=== PATIENT | male | born 1965 | race Caucasian/White ===

== ENCOUNTER 2018-11-28 09:22 | Day surgery (SDC) | payer MEDICARE, MEDICAID ==
[~2018-11-28 09:22] MED LIST: Sodium Chloride 0.9% 1,000 ML IV SCH
[2018-11-28] MEDS ORDERED: Midazolam 1 MG/ML 2 ML SDV ONE (09:40)
[2018-11-28] MEDS ORDERED: fentaNYL 100 MCG/2 ML SDV ONE (09:40)
[2018-11-28] MEDS ORDERED: Propofol 200 MG/20 ML SDV ONE ×2 (09:40→10:10)
--- NOTE | 2018-11-28 11:52 | OR ---
DATE OF PROCEDURE: 11/28/2018 PROCEDURES: 1. Esophagogastroduodenoscopy. 2. Colonoscopy. FINDINGS: 1. No evidence of old or new blood. 2. Transverse colon polyp, approximately 8 mm, completely removed using snare. 3. Engorged tick, left leg. COMPLICATIONS: None. CISCO CONSULTANT: None. PREOPERATIVE DIAGNOSIS: Nausea, vomiting, and screening colonoscopy. POSTOPERATIVE DIAGNOSIS: Nausea, vomiting, and screening colonoscopy. RISKS: Risks, benefits, alternatives, and limitations including, but not limited to infection, bleeding, and perforation were explained to the patient who wished to proceed. PROCEDURE IN DETAIL: The patient was placed in left lateral decubitus position. The EGD scope was introduced and advanced atraumatically to second part of the duodenum. No evidence of duodenitis. No ulceration. In the stomach itself, there were no abnormalities. No gastritis. No ulceration. The GE junction appeared normal. No hiatal hernia. The esophagus was inspected without abnormality. Digital rectal exam performed next showed mild external hemorrhoids. Scope was introduced and advanced atraumatically to the ileocecal valve. The scope was brought back to the ascending, transverse, descending colon, and retroflexed. No diverticulosis. No old or new blood. In the transverse colon, the aforementioned polyp was identified and completely removed using a snare. No abnormal bleeding was noted after removal. No abnormalities on retroflexion. The patient tolerated the procedure well. Balta Ortiz MD /[id number]
== END 2018-11-28 11:40 | disposition home or self-care (01) ==
LOC: JP.SDS 09:22
PROVIDERS: ATTEND Surgery
DX: Z12.11 Encounter for screening for malignant neoplasm of colon (principal); D12.3 Benign neoplasm of transverse colon; K64.4 Residual hemorrhoidal skin tags; R11.2 Nausea with vomiting, unspecified; S80.862A Insect bite (nonvenomous), left lower leg, initial encounter; E87.6 Hypokalemia; I10 Essential (primary) hypertension; F32.9 Major depressive disorder, single episode, unspecified; F41.9 Anxiety disorder, unspecified; F17.210 Nicotine dependence, cigarettes, uncomplicated; M54.9 Dorsalgia, unspecified; Z88.0 Allergy status to penicillin; Z88.8 Allergy status to other drugs, medicaments and biological substances; Z88.1 Allergy status to other antibiotic agents; Z91.030 Bee allergy status; Z79.82 Long term (current) use of aspirin; Z79.01 Long term (current) use of anticoagulants
CPT/HCPCS: 43235; 45385; J2250; J2704; J3010; J7030; 88305

== ENCOUNTER 2020-01-17 11:38 | Emergency (ER) | payer MEDICARE, MEDICAID ==
--- NOTE | 2020-01-17 12:13 | EDM.PDOC ---
ED HPI GENERAL MEDICAL PROBLEM - General Chief Complaint: ENT Problem Stated Complaint: LOWER LIP/CHIN SWELLING WITH PAIN Time Seen by Provider: 01/17/20 12:00 Source of Information: Reports: Patient, Old Records History Limitations: Reports: No Limitations - History of Present Illness INITIAL COMMENTS - FREE TEXT/NARRATIVE: 54 yo male here with pain and swelling of his anterior lower jaw and lower lip. No fever. Has a pHx of bad teeth. Sx's began 3 days ago and is getting worse. Is on oxycodone regularly currently. Has a PCN allergy. Onset: Gradual Onset Date: 01/14/20 Duration: Day(s): (3), Getting Worse Location: Reports: Face (anterior mandible) Quality: Reports: Ache Severity: Moderate Improves with: Reports: Medication Worsens with: Reports: Other (time) Context: Reports: Other (See HPI) Associated Symptoms: Denies: Fever/Chills Treatments INFRASTRUCTURE ARCHITECT: Reports: Other (see below) (none) - Related Data Allergies Allergy/AdvReac Type Severity Reaction Status Date / Time bee venom protein (honey bee) Allergy Severe Anaphylactic Verified 07/10/19 09:1 9 Shock bupropion [From Wellbutrin] Allergy Other Verified 07/10/19 09:19 cefadroxil [From Duricef] Allergy Other Verified 07/10/19 09:19 penicillin G Allergy Other Verified 07/10/19 09:19 Home Meds: Home Meds Apixaban [Eliquis] 5 mg PO BID 11/11/18 [History] Aspirin [Adult Low Dose Aspirin EC] 81 mg PO DAILY 11/11/18 [History] Cetirizine HCl [Zyrtec] 10 mg PO DAILY 11/11/18 [History] Nitroglycerin [Nitrostat] 0.4 mg SL ASDIRECTED 11/11/18 [History] PARoxetine [Paxil] 40 mg PO DAILY 11/11/18 [History] Potassium Chloride 20 meq PO DAILY 11/11/18 [History] amLODIPine Besylate [Norvasc] 10 mg PO DAILY 11/11/18 [History] atorvaSTATin [Lipitor] 80 mg PO BEDTIME 11/11/18 [History] ARIPiprazole [Abilify] 1 tab PO BEDTIME 07/08/19 [History] Finasteride 5 mg PO DAILY 07/08/19 [History] oxyCODONE HCl/Acetaminophen [Endocet 5-325 Tablet] 2 tab PO Q8H PRN 07/08/19 [History] Clindamycin HCl 300 mg PO Q8H #30 capsule 01/17/20 [Rx] Past Medical History HEENT History: Reports: None Cardiovascular History: Reports: High Cholesterol, Hypertension, Stents Gastrointestinal History: Reports: Other (See Below) Other Gastrointestinal History: ingunial hernia years ago Musculoskeletal History: Reports: Arthritis, Back Pain, Chronic Oncologic (Cancer) History: Reports: Other (See Below) Other Oncologic History: skin cancer year ago right arm - Infectious Disease History Infectious Disease History: Reports: Chicken Pox - Past Surgical History GI Surgical History: Reports: Hernia, Inguinal Musculoskeletal Surgical History: Reports: Shoulder Surgery Other Musculoskeletal Surgeries/Procedures:: left and right rotar cuff (right side not fixed, acquired infection on right side) Oncologic Surgical History: Reports: None Social & Family History - Family History Family Medical History: Noncontributory - Caffeine Use Caffeine Use: Reports: Energy Drinks, Soda ED ROS ENT - Review of Systems Review Of Systems: See Below Constitutional: Reports: No Symptoms HEENT: Reports: Dental Pain, Other (lower lip swelling) Respiratory: Reports: No Symptoms Cardiovascular: Reports: No Symptoms GI/Abdominal: Reports: No Symptoms Skin: Reports: No Symptoms Neurological: Reports: No Symptoms ED EXAM, ENT - Physical Exam Exam: See Below Exam Limited By: No Limitations General Appearance: Alert, WD/WN, No Apparent Distress Mouth/Throat: Normal Oropharynx, Dental Abcess, Dental Pain, Dental Tenderness (lower incisors all severely decayed and tender), Lip Swelling (lower lip only). No: Normal Gums, Normal Lips, Normal Teeth, Bleeding, Hoarse Voice, Muffled Voice, Tongue Swelling Head: Atraumatic, Normocephalic Neck: Normal Inspection. No: Lymphadenopathy (R), Lymphadenopathy (L) Respiratory/Chest: No Respiratory Distress, Lungs Clear, Normal Breath Sounds, No Accessory Muscle Use Cardiovascular: Regular Rate, Rhythm, No Edema Neurological: Alert, Oriented, CN II-XII Intact, Normal Cognition, No Motor/Sensory Deficits Psychiatric: Normal Affect, Normal Mood Skin: Warm, Dry, Intact, Normal Color, No Rash Course - Vital Signs Last Recorded V/S: Last Vital Signs Temp 36.8 C 01/17/20 11:47 Pulse 84 01/17/20 11:47 Resp 12 01/17/20 11:47 BP 118/80 01/17/20 12:03 Pulse Ox 95 01/17/20 11:47 Departure - Departure Time of Disposition: 12:13 Disposition: Home, Self-Care 01 Condition: Fair Clinical Impression: Dental infection - Discharge Information *PRESCRIPTION DRUG MONITORING PROGRAM REVIEWED*: No *COPY OF PRESCRIPTION DRUG MONITORING REPORT IN PATIENT NOA: No Prescriptions: Clindamycin HCl 300 mg PO Q8H #30 capsule Referrals: PCP,None [Primary Care Provider] - Additional Instructions: Take the clindamycin as directed until gone. F/U with your dentist and/or family doctor later this week. May add Anbesol for additional pain relief. Continue your oxycodone. Return here for high fever. Sepsis Event Note (ED) - Focused Exam Vital Signs: Vital Signs Temp Pulse Resp BP Pulse Ox 01/17/20 12:03 118/80 01/17/20 11:47 36.8 C 84 12 95
== END 2020-01-17 12:23 | disposition home or self-care (01) ==
LOC: JP.ED 11:38
DX: K04.7 Periapical abscess without sinus (principal); K02.9 Dental caries, unspecified; I10 Essential (primary) hypertension; E78.00 Pure hypercholesterolemia, unspecified; Z91.030 Bee allergy status; Z88.8 Allergy status to other drugs, medicaments and biological substances; Z88.0 Allergy status to penicillin; Z79.82 Long term (current) use of aspirin; Z79.899 Other long term (current) drug therapy
CPT/HCPCS: 99282

== ENCOUNTER 2020-09-09 00:07 | Inpatient (IN) | payer MEDICARE, MEDICAID ==
[2020-09-09] MEDS ORDERED: Sodium Chloride 0.9% 1,000 ML IV ONE (00:39)
[2020-09-09] MEDS ORDERED: Ondansetron 4 MG/2 ML SDV IVPUSH ONE (00:39)
[2020-09-09] MEDS ORDERED: Sodium Chloride 0.9% 10 ML Syringe FLUSH PRN (00:39)
[2020-09-09] MEDS ORDERED: HYDROmorphone 0.5 MG/0.5 ML Syringe IVPUSH ONE (00:52)
--- NOTE | 2020-09-09 00:52 | EDM.PDOC ---
ED HPI GENERAL MEDICAL PROBLEM - General Chief Complaint: Gastrointestinal Problem Stated Complaint: BODY ACHES/SOB Time Seen by Provider: 09/09/20 00:38 Source of Information: Reports: Patient History Limitations: Reports: No Limitations - History of Present Illness INITIAL COMMENTS - FREE TEXT/NARRATIVE: Reji is a 54-year-old male presenting to the ED for evaluation of inability to swallow, body aches, marked increased in thirst, chest pain, and feeling unwell. Patient was in his usual state of health until last week when he DC'd his Endocet. It is unclear why he discontinued this, however, he reports that since Saturday has not been able to swallow even liquids. He comes in very anxious, diaphoretic, drenching sweats, tachypneic and tachycardic. He appears very unc omfortable and apprehensive. He is complaining of severe thirst. According to the patient's , the patient discontinued the Endocet because it was felt that that was causing constipation. The patient was seen in the emergency room at [facility] last week for similar although less severe event. He has been having stomach issues for the last 2 to 3 weeks with diminished appetite and increasing abdominal pain. His primary provider stated that the next visit they would schedule him for a CT of the abdomen and pelvis. Patient does have a history for coronary artery disease and is status post stent placement with the most recent being 3 years ago. Patient normally doctors at [facility] with Paula tSock. body aches Pain Score (Numeric/FACES): 6 - Related Data Allergies Allergy/AdvReac Type Severity Reaction Status Date / Time bee venom protein (honey bee) Allergy Severe Anaphylactic Verified 09/09/20 00:21 Shock bupropion [From Wellbutrin] Allergy Other Verified 09/09/20 00:21 cefadroxil [From Duricef] Allergy Other Verified 09/09/20 00:21 penicillin G Allergy Other Verified 09/09/20 00:21 Home Meds: Home Meds Apixaban [Eliquis] 5 mg PO BID 11/11/18 [History] Aspirin [Adult Low Dose Aspirin EC] 81 mg PO DAILY 11/11/18 [History] Cetirizine HCl [Zyrtec] 10 mg PO DAILY 11/11/18 [History] Nitroglycerin [Nitrostat] 0.4 mg SL ASDIRECTED 11/11/18 [History] PARoxetine [Paxil] 40 mg PO DAILY 11/11/18 [History] Potassium Chloride 20 meq PO DAILY 11/11/18 [History] amLODIPine Besylate [Norvasc] 10 mg PO DAILY 11/11/18 [History] atorvaSTATin [Lipitor] 80 mg PO BEDTIME 11/11/18 [History] Finasteride 5 mg PO DAILY 07/08/19 [History] oxyCODONE HCl/Acetaminophen [Endocet 5-325 Tablet] 2 tab PO Q8H PRN 07/08/19 [History] Past Medical History HEENT History: Reports: Other (See Below) Other HEENT History: dentures Cardiovascular History: Reports: High Cholesterol, [place], Stents Gastrointestinal History: Reports: Other (See Below) Other Gastrointestinal History: ingunial hernia years ago Musculoskeletal History: Reports: Arthritis, Back Pain, Chronic Hematologic History: Reports: Anticoagulation Therapy Oncologic (Cancer) History: Reports: Other (See Below) Other Oncologic History: skin cancer year ago right arm - Infectious Disease History Infectious Disease History: Reports: Chicken Pox - Past Surgical History HEENT Surgical History: Reports: Tonsillectomy GI Surgical History: Reports: Hernia, Inguinal Musculoskeletal Surgical History: Reports: Shoulder Surgery Other Musculoskeletal Surgeries/Procedures:: left and right rotar cuff (right side not fixed, acquired infection on right side) Oncologic Surgical History: Reports: None Social & Family History - Family History Family Medical History: No Pertinent Family History - Tobacco Use Tobacco Use Status *Q: Current Every Day Tobacco User Years of Tobacco use: 40 Packs/Tins Daily: 0.5 - Caffeine Use Caffeine Use: Reports: Energy Drinks, Soda - Recreational Drug Use Recreational Drug Use: No ED ROS GENERAL - Review of Systems Review Of Systems: See Below Constitutional: Reports: Malaise, Fatigue, Diaphoresis, Other ( states that the patient has been sleeping much more this last 2 weeks.) HEENT: Reports: Other (Patient cannot swallow) Respiratory: Reports: No Symptoms Cardiovascular: Reports: Palpitations (Tachycardia) Endocrine: Reports: Other (Patient very thirsty) GI/Abdominal: Reports: Abdominal Pain (Generalized abdominal pain), Constipation (To be secondary to opiate use), Decreased Appetite, Difficulty Swallowing, Nausea, Vomiting : Reports: No Symptoms Musculoskeletal: Reports: Muscle Pain (Generalized body aches) Skin: Reports: No Symptoms Neurological: Reports: No Symptoms Psychiatric: Reports: Anxiety Hematologic/Lymphatic: Reports: No Symptoms Immunologic: Reports: No Symptoms ED EXAM, GENERAL - Physical Exam Exam: See Below Exam Limited By: No Limitations General Appearance: Anxious, Severe Distress Eye Exam: Bilateral Eye: EOMI, PERRL Head: Atraumatic, Normocephalic Neck: Normal Inspection, Supple, Non-Tender, Full Range of Motion Respiratory/Chest: No Respiratory Distress, Lungs Clear, Normal Breath Sounds Cardiovascular: Normal Peripheral Pulses, Regular Rate, Rhythm, Tachycardia GI/Abdominal: Distended (Mildly distended), Tender (Diffuse tenderness), Abnormal Bowel Sounds (Minutes bowel sounds). No: Guarding, Rebound Back Exam: Normal Inspection Extremities: Normal Inspection, Normal Range of Motion Neurological: Alert, Oriented, Normal Cognition, No Motor/Sensory Deficits Psychiatric: Anxious Skin Exam: Warm, Diaphoretic (Drenching diaphoresis), Pallor Lymphatic: No Adenopathy #1 Interpretation EKG Date: 09/09/20 Time: 00:48 Rhythm: NSR Rate (Beats/Min): 89 Kevil: Normal P-Wave: Enlarged (Left atrial enlargement) QRS: Normal ST-T: Other (Chaotic baseline makes interpretation impossible. Unable to get a solid baseline due to the patient's respiratory distress.) QT: Prolonged (Corrected QT interval of 558 ms) Comparison: NA - No Prior EKG Course - Vital Signs Last Recorded V/S: Last Vital Signs Temp 36.1 C 09/09/20 02:19 Pulse 89 09/09/20 02:19 Resp 13 09/09/20 02:19 BP 106/45 L 09/09/20 02:19 Pulse Ox 99 09/09/20 02:19 - Orders/Labs/Meds Orders: Active Orders 24 hr Category Date Time Status EKG Documentation Completion [RC] ASDIRECTED Care 09/09/20 00:40 Active COVID-19/FLU A+B/RSV [MOLEC] Stat Lab 09/09/20 02:04 Ordered Pantoprazole [ProTONIX IV] 80 mg Med 09/09/20 02:30 Active Sodium Chloride 0.9% [Normal Saline] 100 ml IV .BOLUS Potassium Chloride [KCL in Water 20 MEQ/100 ML] 20 meq Med 09/09/20 01:34 Active Premix Bag 1 bag IV ONETIME Potassium Chloride [KCL in Water 20 MEQ/100 ML] 20 meq Med 09/09/20 02:16 Active Premix Bag 1 bag IV ONETIME Sodium Chloride 0.9% [Normal Saline] 1,000 ml Med 09/09/20 02:00 Active IV ASDIRECTED Sodium Chloride 0.9% [Saline Flush] Med 09/09/20 00:39 Active 10 ml FLUSH ASDIRECTED PRN Saline Lock Insert [OM.PC] Routine Oth 09/09/20 00:39 Ordered EKG 12 Lead [EK] Routine Ther 09/09/20 00:39 Ordered Medication Orders Potassium Chloride 20 meq/ (Premix) 100 mls @ 50 mls/hr IV ONETIME ONE Stop: 09/09/20 03:33 Last Admin: 09/09/20 02:04 Dose: 50 mls/hr Documented by: ALESIA Sodium Chloride (Normal Saline) 1,000 mls @ 150 mls/hr IV ASDIRECTED KAHLIL Last Admin: 09/09/20 02:08 Dose: 150 mls/hr Documented by: ALESIA Pantoprazole Sodium 80 mg/ (Sodium Chloride) 100 mls @ 200 mls/hr IV .BOLUS KAHLIL Potassium Chloride 20 meq/ (Premix) 100 mls @ 50 mls/hr IV ONETIME ONE Stop: 09/09/20 04:15 Sodium Chloride (Sodium Chloride 0.9% 10 Ml Syringe) 10 ml FLUSH ASDIRECTED PRN PRN Reason: Keep Vein Open Last Admin: 09/09/20 00:58 Dose: 10 ml Documented by: ALESIA Labs: Laboratory Tests 09/09/20 09/09/20 09/09/20 Range/Units 00:45 00:45 00:45 WBC 9.0 (4.5-11.0) K/uL RBC 4.38 (4.30-5.90) M/uL Hgb 13.2 (12.0-15.0) g/dL Hct 39.3 L (40.0-54.0) % MCV 90 (80-98) fL MCH 30 (27-31) pg MCHC 34 (32-36) % Plt Count 265 (150-400) K/uL Neut % (Auto) 47 (36-66) % Lymph % (Auto) 38 (24-44) % [place] % (Auto) 11 H (2-6) % Eos % (Auto) 3 (2-4) % Baso % (Auto) 1 (0-1) % Sodium 139 L (140-148) mmol/L Potassium 2.9 L* (3.6-5.2) mmol/L Chloride 102 (100-108) mmol/L Carbon Dioxide 20 L (21-32) mmol/L Anion Gap 19.9 H (5.0-14.0) mmol/L BUN 14 D (7-18) mg/dL Creatinine 1.3 (0.8-1.3) mg/dL Est Cr Clr Drug Dosing 68.38 mL/min Estimated GFR (MDRD) 57 L (>60) Glucose 91 (74-106) mg/dL Lactic Acid 3.5 H (0.4-2.0) mmol/L Calcium 9.2 (8.5-10.1) mg/dL Total Bilirubin 0.7 (0.2-1.0) mg/dL AST 36 (15-37) U/L ALT 44 (12-78) U/L Alkaline Phosphatase 150 H (46-116) U/L Troponin I < 0.017 (0.000-0.056) ng/mL Total Protein 6.9 (6.4-8.2) g/dL Albumin 3.4 (3.4-5.0) g/dL Globulin 3.5 (2.3-3.5) g/dL Albumin/Globulin Ratio 1.0 L (1.2-2.2) Lipase 75 (73-393) U/L Meds: Medications Generic Name Dose Route Start Last Admin Trade Name Freq PRN Reason Stop Dose Admin Potassium Chloride 20 meq/ 100 mls @ 50 mls/hr 09/09/20 01:34 09/09/20 02:04 Premix IV 09/09/20 03:33 50 mls/hr ONETIME ONE Administration Sodium Chloride 1,000 mls @ 150 mls/hr 09/09/20 02:00 09/09/20 02:08 Normal Saline IV 150 mls/hr ASDIRECTED KAHLIL Administration Pantoprazole Sodium 80 mg/ 100 mls @ 200 mls/hr 09/09/20 02:30 Sodium Chloride IV .BOLUS KAHLIL Potassium Chloride 20 meq/ 100 mls @ 50 mls/hr 09/09/20 02:16 Premix IV 09/09/20 04:15 ONETIME ONE Sodium Chloride 10 ml 09/09/20 00:39 09/09/20 00:58 Sodium Chloride 0.9% 10 Ml Syringe FLUSH 10 ml ASDIRECTED PRN Administration Keep Vein Open Discontinued Medications Generic Name Dose Route Start Last Admin Trade Name Freq PRN Reason Stop Dose Admin Hydromorphone HCl 0.5 mg 09/09/20 00:52 09/09/20 00:57 Hydromorphone 0.5 Mg/0.5 Ml Syringe IVPUSH 09/09/20 00:53 0.5 mg ONETIME ONE Administration Sodium Chloride 1,000 mls @ 999 mls/hr 09/09/20 00:39 09/09/20 00:49 Normal Saline IV 09/09/20 01:39 999 mls/hr .BOLUS ONE Administration Sodium Chloride 100 mls @ 3 mls/sec 09/09/20 01:07 09/09/20 01:15 Normal Saline IV 09/09/20 01:08 3 mls/sec ASDIRECTED STA Administration Iopamidol 100 ml 09/09/20 01:07 09/09/20 01:15 Iopamidol 612 Mg/Ml 100 Ml Bottle IV 09/09/20 01:08 100 ml . DIRECTED STA Administration Lidocaine HCl 2 ml 09/09/20 01:36 09/09/20 02:04 Lidocaine 1% 5 Ml Sdv INJECT 09/09/20 01:37 2 ml ONETIME ONE Administration Ondansetron HCl 4 mg 09/09/20 00:39 09/09/20 00:55 Ondansetron 4 Mg/2 Ml Sdv IVPUSH 09/09/20 00:40 4 mg ONETIME ONE Administration - Radiology Interpretation Free Text/Narrative:: CT of the chest, abdomen and pelvis with contrast was performed demonstrating in the chest is normal thyroid gland, thoracic aorta is normal in caliber with mild atherosclerosis, coronary atherosclerosis, no enlarged mediastinal lymph nodes, along the course of the esophagus there is no discrete abnormalities identified. Lungs and pleura: There is no pleural effusion or pneumothorax. Mild sommers lobar emphysema. Indeterminate 2 mm pulmonary nodule in the right middle lobe although stable compared to 2019 exam. Linear scarring within the left lower lobe. Stable 3 mm pulmonary nodule in the left lower lobe. Chest wall and axilla: Subcentimeter axillary lymph nodes. Bones: Prominent hemangioma T5. Abdomen and pelvis: Liver - diffusely decreased density of the liver with focal fat adjacent to the falciform ligament. Gallbladder and bile ductsunremarkable. Pancreasunremarkable. Spleenunremarkable. Adrenal glandsunremarkable. Kidneysunremarkable. GI tractthe stomach is decompressed and grossly unremarkable. No dilated loops of small or large intestine. Appendix is unremarkable. Vascular structuresunremarkable. Pelvic organsunremarkable. Bonesmild degenerative disc disease in the lumbar spine. Dictated by Gerardo Dia MD at September 09, 2020 2:42 AM - Re-Assessments/Exams Free Text/Narrative Re-Assessment/Exam: 09/09/20 01:16 lab called to alert me and that the patient has a critical value with a potassium of 2.9. 09/09/20 03:02 potassium has been repleted with potassium chloride riders. With patient was also given Protonix 80 mg IV. His labs otherwise are relatively normal. CT of the chest, abdomen and pelvis with contrast was performed demonstrating in the chest is normal thyroid gland, thoracic aorta is normal in caliber with mild atherosclerosis, coronary atherosclerosis, no enlarged mediastinal lymph nodes, along the course of the esophagus there is no discrete abnormalities identified. Lungs and pleura: There is no pleural effusion or pneumothorax. Mild sommers lobar emphysema. Indeterminate 2 mm pulmonary nodule in the right middle lobe although stable compared to 2019 exam. Linear scarring within the left lower lobe. Stable 3 mm pulmonary nodule in the left lower lobe. Chest wall and axilla: Subcentimeter axillary lymph nodes. Bones: Prominent hemangioma T5. Abdomen and pelvis: Liver - diffusely decreased density of the liver with focal fat adjacent to the falciform ligament. Gallbladder and bile ductsunremarkable. Pancreasunremarkable. Spleenunremarkable. Adrenal glandsunremarkable. Kidneysunremarkable. GI tractthe stomach is decompressed and grossly unremarkable. No dilated loops of small or large intestine. Appendix is unremarkable. Vascular structuresunremarkable. Pelvic organsunremarkable. Bonesmild degenerative disc disease in the lumbar spine. Dictated by Gerardo Dia MD at September 09, 2020 2:42 AM Discussed the case with Dr. Ortiz who is planning on taking the patient to the OR for an endoscopy this morning. He would like us to replete the potassium before the endoscopy. I discussed the case with Laura Pratt CNP who will arrange for admission of the patient. Departure - Departure Time of Disposition: 03:08 Disposition: Admitted As Inpatient 65 Clinical Impression: Hypokalemia, Epigastric abdominal pain, Abdominal bloating, Dehydration Difficulty in swallowing Qualifiers: Dysphagia type: unspecified Qualified Code(s): R13.10 - Dysphagia, unspecified Vomiting Qualifiers: Vomiting type: unspecified Vomiting Intractability: non-intractable Nausea presence: with nausea Qualified Code(s): R11.2 - Nausea with vomiting, unspecified - Discharge Information Referrals: PCP,None [Primary Care Provider] - Forms: ED Department Discharge Sepsis Event Note (ED) - Evaluation Sepsis Screening Result: No Definite Risk - Focused Exam Vital Signs: Vital Signs Temp Pulse Resp BP Pulse Ox 09/09/20 02:19 36.1 C 89 13 106/45 L 99 09/09/20 01:33 35.5 C L 85 13 99/48 L 99 09/09/20 01:05 35.5 C L 88 16 104/47 L 98 09/09/20 00:28 36.6 C 90 20 121/61 97 09/09/20 00:26 36.6 C 90 20 121/61 97 - Problem List & Annotations (1) Abdominal bloating SNOMED Code(s): 963336000 Code(s): R14.0 - ABDOMINAL DISTENSION (GASEOUS) Status: Acute Priority: High Current Visit: Yes (2) Dehydration SNOMED Code(s): 45692453 Code(s): E86.0 - DEHYDRATION Status: Acute Priority: High Current Visit: Yes (3) Difficulty in swallowing SNOMED Code(s): 89214010, 837693646 Code(s): R13.10 - DYSPHAGIA, UNSPECIFIED Status: Acute Priority: High Current Visit: Yes Qualifiers: Dysphagia type: unspecified Qualified Code(s): R13.10 - Dysphagia, unspecified (4) Epigastric abdominal pain SNOMED Code(s): 91108173 Code(s): R10.13 - EPIGASTRIC PAIN Status: Acute Priority: High Current Visit: Yes (5) Hypokalemia SNOMED Code(s): 56239481 Code(s): E87.6 - HYPOKALEMIA Status: Acute Priority: High Current Visit: Yes (6) Vomiting SNOMED Code(s): 920474068 Code(s): R11.10 - VOMITING, UNSPECIFIED Status: Acute Priority: High Current Visit: Yes Qualifiers: Vomiting type: unspecified Vomiting Intractability: non-intractable Nausea presence: with nausea Qualified Code(s): R11.2 - Nausea with vomiting, unspecified - Problem List Review Problem List Initiated/Reviewed/Updated: Yes - My Orders Last 24 Hours: My Active Orders 09/09/20 00:39 Sodium Chloride 0.9% [Saline Flush] 10 ml FLUSH ASDIRECTED PRN Saline Lock Insert [OM.PC] Routine EKG 12 Lead [EK] Routine 09/09/20 00:40 EKG Documentation Completion [RC] ASDIRECTED 09/09/20 01:34 Potassium Chloride [KCL in Water 20 MEQ/100 ML] 20 meq Premix Bag 1 bag IV ONETIME 09/09/20 02:00 Sodium Chloride 0.9% [Normal Saline] 1,000 ml IV ASDIRECTED 09/09/20 02:04 COVID-19/FLU A+B/RSV [MOLEC] Stat 09/09/20 02:16 Potassium Chloride [KCL in Water 20 MEQ/100 ML] 20 meq Premix Bag 1 bag IV ONETIME 09/09/20 02:30 Pantoprazole [ProTONIX IV] 80 mg Sodium Chloride 0.9% [Normal Saline] 100 ml IV .BOLUS - Assessment/Plan Last 24 Hours: My Active Orders 09/09/20 00:39 Sodium Chloride 0.9% [Saline Flush] 10 ml FLUSH ASDIRECTED PRN Saline Lock Insert [OM.PC] Routine EKG 12 Lead [EK] Routine 09/09/20 00:40 EKG Documentation Completion [RC] ASDIRECTED 09/09/20 01:34 Potassium Chloride [KCL in Water 20 MEQ/100 ML] 20 meq Premix Bag 1 bag IV ONETIME 09/09/20 02:00 Sodium Chloride 0.9% [Normal Saline] 1,000 ml IV ASDIRECTED 09/09/20 02:04 COVID-19/FLU A+B/RSV [MOLEC] Stat 09/09/20 02:16 Potassium Chloride [KCL in Water 20 MEQ/100 ML] 20 meq Premix Bag 1 bag IV ONETIME 09/09/20 02:30 Pantoprazole [ProTONIX IV] 80 mg Sodium Chloride 0.9% [Normal Saline] 100 ml IV .BOLUS
[2020-09-09] MEDS ORDERED: Iopamidol 612 MG/ML 100 ML Bottle IV STA (01:07)
[2020-09-09] MEDS ORDERED: Sodium Chloride 0.9% 100 ML IV STA (01:07)
[2020-09-09] MEDS ORDERED: Potassium Chloride 20 MEQ in Premix Bag 1 BAG IV ONE ×2 (01:34→02:16)
[2020-09-09] MEDS: Sodium Chloride 0.9% 1,000 ML IV SCH ×4 (02:08→19:41)
[2020-09-09] MEDS ORDERED: Pantoprazole 80 MG in Sodium Chloride 0.9% 100 ML IV SCH (02:30)
--- NOTE | 2020-09-09 02:53 | CRLCT ---
INDICATION: Unable to swallow for 4 days. TECHNIQUE: CT chest, abdomen and pelvis acquired with 100 cc Isovue-300 intravenous contrast. COMPARISON: Chest CT 01/08/2019 and abdomen and pelvis CT 07/23/2018 FINDINGS: CHEST: Mediastinum and valorie: Thyroid gland is unremarkable. Thoracic aorta is normal in caliber with mild atherosclerotic calcification. Coronary atherosclerosis. No enlarged mediastinal lymph nodes. Along the course of the esophagus no discrete abnormalities are identified. Lungs and pleura: No pleural effusion or pneumothorax. Mild panlobular emphysema. Indeterminate 2 millimeter pulmonary nodule right middle lobe although stable compared to the 2019 exam. Linear scarring within the left lower lobe. Stable 3 millimeter pulmonary nodule left lower lobe. Chest wall and axilla: Subcentimeter axillary lymph nodes. Bones: Prominent hemangioma T5. ABDOMEN AND PELVIS: Liver: Diffusely decreased density of the liver with focal fat adjacent to the falciform ligament. Gallbladder and bile ducts: Unremarkable. Pancreas: Unremarkable. Spleen: Unremarkable. Adrenal glands: Unremarkable. Kidneys: Unremarkable. GI tract: The stomach is decompressed and grossly unremarkable. No dilated loops of large or small intestine. Appendix unremarkable. Vascular structures: Unremarkable. Pelvic Organs: Unremarkable. Bones: Mild degenerative disc disease lumbar spine. IMPRESSION: 1. No findings to explain the patient`s difficulty swallowing. If symptoms persist, follow-up modified barium swallow with speech therapy may be helpful. 2. Panlobular emphysema with stable pulmonary nodules compared to the 2019 examination. 3. Hepatic steatosis. Please note that all CT scans at this facility use dose modulation, iterative reconstruction, and/or weight-based dosing when appropriate to reduce radiation dose to as low as reasonably achievable. Dictated by Gerardo Dia MD @ Sep 09 2020 2:42AM Signed by Dr. Gerardo Dia @ Sep 09 2020 2:51AM
[2020-09-09 03:09] LABS: CORONAVIRUS COVID-19 NAA NEGATIVE (NEGATIVE)
--- NOTE | 2020-09-09 04:00 | PCM.HP.2 ---
H&P History of Present Illness - General Date of Service: 09/09/20 Admit Problem/Dx: Admission Diagnosis/Problem Admission Diagnosis/Problem Dysphasia Source of Information: Patient History Limitations: Reports: No Limitations - History of Present Illness Initial Comments - Free Text/Narative: chief complaint: unable to swallow x 4 days History Limitations: Reports: No Limitations - History of Present Illness INITIAL COMMENTS - FREE TEXT/NARRATIVE: Reji is a 54-year-old male presenting to the ED for evaluation of inability to swallow, body aches, marked increased in thirst, chest pain, and feeling unwell. Patient was in his usual state of health until last week when he DC'd his Endocet. It is unclear why he discontinued this, however, he reports that since Saturday has not been able to swallow even liquids. He comes in very anxious, diaphoretic, drenching sweats, tachypneic and tachycardic. He appears very uncomfortable and apprehensive. He is complaining of severe thirst. According to the patient's , the patient discontinued the Endocet because it was felt that that was causing constipation. The patient was seen in the emergency room at [facility] last week for similar although less severe event. He has been having stomach issues for the last 2 to 3 weeks with diminished appetite and increasing abdominal pain. His primary provider stated that the next visit they would schedule him for a CT of the abdomen and pelvis. Patient does have a history for coronary artery disease and is status post stent placement with the most recent being 3 years ago. Patient normally doctors at [facility] with Paula Stock MD. Onset of Symptoms: Reports: Gradual Symptom Onset Date: 09/05/20 Duration of Symptoms: Reports: Getting Worse Location: Reports: Generalized (unable to swallow) Quality: Reports: Ache, Same as Previous Episode, Sharp, Other (generalized muscle cramps, abdominal pain, weakness) Severity: Severe Improves with: Reports: None Worsens with: Reports: Rest Context: Reports: Other (hx of similar symptoms 2 years ago) Associated Symptoms: Reports: Loss of Appetite, Nausea/Vomiting, Weakness body aches Pain Score (Numeric/FACES): 6 - Related Data Allergies/Adverse Reactions: Allergies Allergy/AdvReac Type Severity Reaction Status Date / Time bee venom protein (honey bee) Allergy Severe Anaphylactic Verified 09/09/20 00:21 Shock bupropion [From Wellbutrin] Allergy Other Verified 09/09/20 00:21 cefadroxil [From Duricef] Allergy Other Verified 09/09/20 00:21 penicillin G Allergy Other Verified 09/09/20 00:21 Home Medications: Home Meds Apixaban [Eliquis] 5 mg PO BID 11/11/18 [History] Aspirin [Adult Low Dose Aspirin EC] 81 mg PO DAILY 11/11/18 [History] Cetirizine HCl [Zyrtec] 10 mg PO DAILY 11/11/18 [History] Nitroglycerin [Nitrostat] 0.4 mg SL ASDIRECTED 11/11/18 [History] PARoxetine [Paxil] 40 mg PO DAILY 11/11/18 [History] Potassium Chloride 20 meq PO DAILY 11/11/18 [History] amLODIPine Besylate [Norvasc] 10 mg PO DAILY 11/11/18 [History] atorvaSTATin [Lipitor] 80 mg PO BEDTIME 11/11/18 [History] Finasteride 5 mg PO DAILY 07/08/19 [History] oxyCODONE HCl/Acetaminophen [Endocet 5-325 Tablet] 2 tab PO Q8H PRN 07/08/19 [ History] Past Medical History HEENT History: Reports: Other (See Below) Other HEENT History: dentures Cardiovascular History: Reports: High Cholesterol, PR, Stents Gastrointestinal History: Reports: Other (See Below) Other Gastrointestinal History: ingunial hernia years ago Musculoskeletal History: Reports: Arthritis, Back Pain, Chronic Hematologic History: Reports: Anticoagulation Therapy Oncologic (Cancer) History: Reports: Other (See Below) Other Oncologic History: skin cancer year ago right arm - Infectious Disease History Infectious Disease History: Reports: Chicken Pox - Past Surgical History HEENT Surgical History: Reports: Tonsillectomy GI Surgical History: Reports: Hernia, Inguinal Musculoskeletal Surgical History: Reports: Shoulder Surgery Other Musculoskeletal Surgeries/Procedures:: left and right rotar cuff (right side not fixed, acquired infection on right side) Oncologic Surgical History: Reports: None Social & Family History - Family History Family Medical History: No Pertinent Family History - Tobacco Use Tobacco Use Status *Q: Current Every Day Tobacco User Years of Tobacco use: 40 Packs/Tins Daily: 0.5 - Caffeine Use Caffeine Use: Reports: Energy Drinks, Soda - Recreational Drug Use Recreational Drug Use: No - Living Situation & Occupation Living situation: Reports: , with Family (Lives with ex- Rowena in [place], [place]. has 3 adult children ages 35 yr, 32 yr, 27 yr- who live on thier own) Occupation: Disabled H&P Review of Systems - Review of Systems: Review Of Systems: See Below General: Reports: Fever, Chills, Malaise, Weakness, Fatigue, Decreased Appetite (unable to eat or drink for 4 days, symptims started about 2 weeks ago. ), Weig ht Loss HEENT: Reports: Other (dentures) Pulmonary: Reports: Shortness of Breath Cardiovascular: Reports: No Symptoms Gastrointestinal: Reports: Abdominal Pain, Anorexia, Diarrhea (watery stools for the past few days), Difficulty Swallowing, Distension, Nausea, Vomiting (yellow emesis) Genitourinary: Reports: Other (decreased voiding for the past 4 days- reports urine very yellow) Musculoskeletal: Reports: Back Pain, Muscle Pain (reports muscle feel crampy, painful, weakness) Skin: Reports: Pallor Psychiatric: Reports: Anxiety (patient keeps says "I'm going to ", anxiety present.) Neurological: Reports: Weakness Hematologic/Lymphatic: Reports: Other (reports clotting disorder, prescribed Eliquis 5mg po bid, last dose 09-08-20 at 10 am.) Exam - Exam Exam: See Below - Vital Signs Vital Signs: Last Vital Signs Temp 97.0 F 09/09/20 02:19 Pulse 89 09/09/20 03:44 Resp 25 H 09/09/20 03:44 BP 107/50 L 09/09/20 03:44 Pulse Ox 94 L 09/09/20 03:44 Weight: 190 lb - Exam General: Alert, Oriented, Cooperative, Moderate Distress HEENT: PERRLA, Conjunctiva Clear, EACs Clear, EOMI, Hearing Intact, Nares Patent, Normal Nasal Septum, Other (mouth is dry) Neck: Supple, Trachea Midline, Full Range of Motion Lungs: Clear to Auscultation, Normal Respiratory Effort Cardiovascular: Regular Rate, Regular Rhythm, Normal S1, Normal S2 GI/Abdominal Exam: Normal Bowel Sounds, Soft, Distended, Tender (right lower quadrant of abdomen) (Male) Exam: Deferred Rectal (Males) Exam: Deferred Back Exam: Normal Inspection, Full Range of Motion, NT Extremities: Normal Inspection, Normal Range of Motion, Non-Tender, No Pedal Edema, Normal Capillary Refill Peripheral Pulses: 2+: Radial (L), Radial (R), Posterior Tibial (L), Posterior Tibial (R) Skin: Warm, Dry, Intact Neurological: Cranial Nerves Intact, Reflexes Equal Bilateral Neuro Extensive - Mental Status: Alert, Oriented x3, Normal Mood/Affect, Normal Cognition, Memory Intact Neuro Extensive - Motor, Sensory, Reflexes: CN II-XII Intact, Normal Gait, N ormal Reflexes Psychiatric: Alert, Anxious - Patient Data Lab Results Last 24 hrs: Laboratory Results - last 24 hr 09/09/20 09/09/20 09/09/20 Range/Units 00:45 00:45 00:45 WBC 9.0 (4.5-11.0) K/uL RBC 4.38 (4.30-5.90) M/uL Hgb 13.2 (12.0-15.0) g/dL Hct 39.3 L (40.0-54.0) % MCV 90 (80-98) fL MCH 30 (27-31) pg MCHC 34 (32-36) % Plt Count 265 (150-400) K/uL Neut % (Auto) 47 (36-66) % Lymph % (Auto) 38 (24-44) % [place] % (Auto) 11 H (2-6) % Eos % (Auto) 3 (2-4) % Baso % (Auto) 1 (0-1) % PT (9.5-12.0) sec INR (0.80-1.20) Sodium 139 L (140-148) mmol/L Potassium 2.9 L* (3.6-5.2) mmol/L Chloride 102 (100-108) mmol/L Carbon Dioxide 20 L (21-32) mmol/L Anion Gap 19.9 H (5.0-14.0) mmol/L BUN 14 D (7-18) mg/dL Creatinine 1.3 (0.8-1.3) mg/dL Est Cr Clr Drug Dosing 68.38 mL/min Estimated GFR (MDRD) 57 L (>60) Glucose 91 (74-106) mg/dL Lactic Acid 3.5 H (0.4-2.0) mmol/L Calcium 9.2 (8.5-10.1) mg/dL Total Bilirubin 0.7 (0.2-1.0) mg/dL AST 36 (15-37) U/L ALT 44 (12-78) U/L Alkaline Phosphatase 150 H (46-116) U/L Troponin I < 0.017 (0.000-0.056) ng/mL Total Protein 6.9 (6.4-8.2) g/dL Albumin 3.4 (3.4-5.0) g/dL Globulin 3.5 (2.3-3.5) g/dL Albumin/Globulin Ratio 1.0 L (1.2-2.2) Lipase 75 (73-393) U/L Influenza Type A RNA (NEGATIVE) RSV RNA (INAAT) (NEGATIVE) Influenza Type B RNA (NEGATIVE) SARS-CoV-2 RNA (ANN) (NEGATIVE) 09/09/20 09/09/20 Range/Units 00:45 02:04 WBC (4.5-11.0) K/uL RBC (4.30-5.90) M/uL Hgb (12.0-15.0) g/dL Hct (40.0-54.0) % MCV (80-98) fL MCH (27-31) pg MCHC (32-36) % Plt Count (150-400) K/uL Neut % (Auto) (36-66) % Lymph % (Auto) (24-44) % [place] % (Auto) (2-6) % Eos % (Auto) (2-4) % Baso % (Auto) (0-1) % PT 13.1 H (9.5-12.0) sec INR 1.21 H (0.80-1.20) Sodium (140-148) mmol/L Potassium (3.6-5.2) mmol/L Chloride (100-108) mmol/L Carbon Dioxide (21-32) mmol/L Anion Gap (5.0-14.0) mmol/L BUN (7-18) mg/dL Creatinine (0.8-1.3) mg/dL Est Cr Clr Drug Dosing mL/min Estimated GFR (MDRD) (>60) Glucose (74-106) mg/dL Lactic Acid (0.4-2.0) mmol/L Calcium (8.5-10.1) mg/dL Total Bilirubin (0.2-1.0) mg/dL AST (15-37) U/L ALT (12-78) U/L Alkaline Phosphatase (46-116) U/L Troponin I (0.000-0.056) ng/mL Total Protein (6.4-8.2) g/dL Albumin (3.4-5.0) g/dL Globulin (2.3-3.5) g/dL Albumin/Globulin Ratio (1.2-2.2) Lipase (73-393) U/L Influenza Type A RNA Negative (NEGATIVE) RSV RNA (INAAT) Negative (NEGATIVE) Influenza Type B RNA Negative (NEGATIVE) SARS-CoV-2 RNA (ANN) Negative (NEGATIVE) Result Diagrams: 09/09/20 00:45 09/09/20 00:45 Imaging Impressions Last 24 hrs: CT of the chest, abdomen and pelvis with contrast was performed demonstrating in the chest is normal thyroid gland, thoracic aorta is normal in caliber with mild atherosclerosis, coronary atherosclerosis, no enlarged mediastinal lymph nodes, along the course of the esophagus there is no discrete abnormalities identified. Lungs and pleura: There is no pleural effusion or pneumothorax. Mild sommers lobar emphysema. Indeterminate 2 mm pulmonary nodule in the right middle lobe although stable compared to 2019 exam. Linear scarring within the left lower lobe. Stable 3 mm pulmonary nodule in the left lower lobe. Chest wall and axilla: Subcentimeter axillary lymph nodes. Bones: Prominent hemangioma T5. Abdomen and pelvis: Liver - diffusely decreased density of the liver with focal fat adjacent to the falciform ligament. Gallbladder and bile ductsunremarkable. Pancreasunremarkable. Spleenunremarkable. Adrenal glandsunremarkable. Kidneysunremarkable. GI tractthe stomach is decompressed and grossly unremarkable. No dilated loops of small or large intestine. Appendix is unremarkable. Vascular structuresunremarkable. Pelvic organsunremarkable. Bonesmild degenerative disc disease in the lumbar spine. Dictated by Gerardo Dia MD at September 09, 2020 2:42 AM Sepsis Event Note - Evaluation Sepsis Screening Result: No Definite Risk - Focused Exam Vital Signs: Vital Signs Temp Pulse Resp BP Pulse Ox 09/09/20 03:44 89 25 H 107/50 L 94 L 09/09/20 02:19 97.0 F 89 13 106/45 L 99 09/09/20 01:33 95.9 F L 85 13 99/48 L 99 09/09/20 01:05 96 F L 88 16 104/47 L 98 09/09/20 00:28 97.9 F 90 20 121/61 97 09/09/20 00:26 97.9 F 90 20 121/61 97 - Problem List (1) Dysphagia SNOMED Code(s): 72238085, 173172710 ICD Code: R13.10 - DYSPHAGIA, UNSPECIFIED Status: Acute Priority: High Current Visit: Yes Qualifiers: Dysphagia type: unspecified Qualified Code(s): R13.10 - Dysphagia, unspecified (2) Hypokalemia SNOMED Code(s): 21365298 ICD Code: E87.6 - HYPOKALEMIA Status: Acute Priority: High Current Visit: Yes (3) Coronary artery disease SNOMED Code(s): 71743838 ICD Code: I25.10 - ATHSCL HEART DISEASE OF [place] CORONARY ARTERY W/O ANG PCTRS Status: Acute Priority: High Current Visit: Yes (4) Chronic back pain SNOMED Code(s): 485853307 ICD Code: M54.9 - DORSALGIA, UNSPECIFIED; G89.29 - OTHER CHRONIC PAIN Status: Acute Current Visit: Yes Qualifiers: Back pain location: back pain in unspecified location Problem List Initiated/Reviewed/Updated: Yes Orders Last 24hrs: Active Orders 24 hr Category Date Time Status Patient Status Manage Transfer [TRANSFER] Routine ADT 09/09/20 03:38 Active EKG Documentation Completion [RC] ASDIRECTED Care 09/09/20 00:40 Active UA W/MICROSCOPIC [URIN] Urgent Lab 09/09/20 03:36 Ordered Pantoprazole [ProTONIX IV] 80 mg Med 09/09/20 02:30 Active Sodium Chloride 0.9% [Normal Saline] 100 ml IV .BOLUS Potassium Chloride [KCL in Water 20 MEQ/100 ML] 20 meq Med 09/09/20 02:16 Active Premix Bag 1 bag IV ONETIME Sodium Chloride 0.9% [Normal Saline] 1,000 ml Med 09/09/20 02:00 Active IV ASDIRECTED Sodium Chloride 0.9% [Saline Flush] Med 09/09/20 00:39 Active 10 ml FLUSH ASDIRECTED PRN Saline Lock Insert [OM.PC] Routine Oth 09/09/20 00:39 Ordered Resuscitation Status Routine Resus Stat 09/09/20 03:42 Ordered EKG 12 Lead [EK] Routine Ther 09/09/20 00:39 Ordered Medication Orders Sodium Chloride (Normal Saline) 1,000 mls @ 150 mls/hr IV ASDIRECTED KAHLIL Last Admin: 09/09/20 02:08 Dose: 150 mls/hr Documented by: ALESIA Pantoprazole Sodium 80 mg/ (Sodium Chloride) 100 mls @ 200 mls/hr IV .BOLUS KAHLIL Potassium Chloride 20 meq/ (Premix) 100 mls @ 50 mls/hr IV ONETIME ONE Stop: 09/09/20 04:15 Sodium Chloride (Sodium Chloride 0.9% 10 Ml Syringe) 10 ml FLUSH ASDIRECTED PRN PRN Reason: Keep Vein Open Last Admin: 09/09/20 00:58 Dose: 10 ml Documented by: ALESIA Assessment/Plan Comment:: ASSESSMENT AND PLAN OF CARE: DYSPHAGIA This is a 54 year old male who present to the ER with ex- Rowena, reports has not been able to swallow any liquids or solids for 4 days, has been having symptoms for the past two weeks. Reports Feels like he is going to . Abdominal and muscle pain is present. very thirsty. ER evaluation labs CBC wbc 9.0, hgb 13.2, hct 39.2, plt 265, INR pending, Chemistries Na 139, K+ 2.9, anion gap 19.9, bun 14, cr 1.3, glucose 91, co2 20, gfr 57, lactic acid 3.5, lipase 75, urine pending, negative influenza, rsv, covid. Imaging- CT of the chest, abdomen and pelvis with contrast was performed demonstrating in the chest is normal thyroid gland, thoracic aorta is normal in caliber with mild atherosclerosis, coronary atherosclerosis, no enlarged mediastinal lymph nodes, along the course of the esophagus there is no discrete abnormalities identified. Lungs and pleura: There is no pleural effusion or pneumothorax. Mild sommers lobar emphysema. Indeterminate 2 mm pulmonary nodule in the right middle lobe [facility] stable compared to 2019 exam. Linear scarring within the left lower lobe. Stable 3 mm pulmonary nodule in the left lower lobe. Chest wall and axilla: Subcentimeter axillary lymph nodes. Bones: Prominent hemangioma T5. Abdomen and pelvis: Liver - diffusely decreased density of the liver with focal fat adjacent to the falciform ligament. Gallbladder and bile ductsunremarkable. Pancreasunremarkable. Spleenunremarkable. Adrenal glandsunremarkable. Kidneysunremarkable. GI tractthe stomach is decompressed and grossly unremarkable. No dilated loops of small or large intestine. Appendix is unremarkable. Vascular structuresunremarkable. Pelvic organsunremarkable. Bonesmild degenerative disc disease in the lumbar spine. Consult to Dr. Ortiz- admission to hospital with EGD first case this morning. Discussed with Reji and Rowena- agree with plan of care. Dysphasia -IV fluids Normal Saline 150ml/hr -Pain and nausea management -Surgical consultation in the morning or if condition deteriorates -EGD in the morning -Nothing by mouth -repeat CBC, BMP, LACTIC ACID in am Hypokalemia - Potassium 2.9 on admission, has IV Potassium 40 meq. order -recheck Potassium in am Coronary Artery Disease- had a PR with stent placed 3 years ago, has blood clotting disordered, no history of PE. -Eliquis 5 mg po bid- last taken 09-08-2020 at 10 am.- on hold for surgery this morning -continue outpatient medications after surgery is completed. Chronic Back pain and arthritis -pain medication ordered Maintenance issues - - DVT prophylaxis - SCD - GI prophylaxis -PPI - Nutrition -nothing by mouth - [place] catheter -not indicated -Nicotine dependence - Nicotine patch 14 mg. CODE STATUS -full code Admission justification - this patient will be admitted for inpatient services and is medically appropriate meeting medical necessity for inpatient admission as outlined in my documentation. I reasonably expect the patient will require inpatient services that span a period time over 2 midnights. I reasonably expect this patient to be discharged or transferred within 96 hours [facility]. Disposition -I would anticipate discharge home after the hospital stay [facility] Mc Dixon M.[facility] - Mortality Measure good - Mortality Measure Prognosis:: Good
[2020-09-09] MEDS ORDERED: HYDROmorphone 1 MG/ML Syringe IVPUSH ONE (04:14)
[2020-09-09] MEDS ORDERED: Docusate Sodium 100 MG Cap PO PRN ×2 (05:36→09:23)
[2020-09-09] MEDS ORDERED: Bisacodyl 5 MG Tab PO PRN ×2 (05:36→09:23)
[2020-09-09] MEDS ORDERED: Albuterol/Ipratropium 3.0-0.5 MG/3 ML Neb Soln NEB PRN (05:36)
[2020-09-09] MEDS ORDERED: Albuterol 0.083% 2.5 MG/3 ML Neb Soln NEB PRN ×2 (05:36→09:23)
[2020-09-09] MEDS ORDERED: Morphine 2 MG/ML SYRINGE IVPUSH PRN ×2 (05:36→09:23)
[2020-09-09] MEDS ORDERED: Scopolamine 1.5 MG Transdermal Patch TRDERM PRN ×2 (05:41→09:23)
[2020-09-09] MEDS ORDERED: diphenhydrAMINE 50 MG/ML SDV IVPUSH PRN ×2 (05:42→09:23)
[2020-09-09] MEDS ORDERED: LORazepam 2 MG/ML SDV ONE (05:46)
[2020-09-09] MEDS: LORazepam 2 MG/ML SDV IV PRN (05:49)
[2020-09-09] MEDS ORDERED: Midazolam 1 MG/ML 2 ML SDV ONE (07:15)
[2020-09-09] MEDS ORDERED: fentaNYL 100 MCG/2 ML SDV ONE (07:15)
[2020-09-09] MEDS ORDERED: Propofol 200 MG/20 ML SDV ONE ×2 (07:15→07:46)
[2020-09-09] MEDS ORDERED: Lactated Ringers 1,000 ML ONE (07:52)
[2020-09-09] MEDS ORDERED: LORazepam 2 MG/ML SDV IV PRN (09:23)
[2020-09-09] MEDS ORDERED: Promethazine 12.5 MG in Sodium Chloride 0.9% 50 ML IV PRN (09:23)
[2020-09-09] MEDS ORDERED: Ondansetron 4 MG/2 ML SDV IV PRN (09:23)
[2020-09-09] MEDS ORDERED: Nicotine 14 MG/24 Hr Patch TRDERM SCH (09:23)
[2020-09-09] MEDS ORDERED: Nitroglycerin 0.4 MG Tab.SL SL PRN (09:36)
[2020-09-09] MEDS ORDERED: amLODIPine 5 MG Tab PO SCH (10:00)
--- NOTE | 2020-09-09 10:13 | CT ---
Head wo Cont CLINICAL HISTORY: Dysphasia COMPARISON: None TECHNIQUE: Transverse scans were obtained from the base of the skull through the vertex without IV contrast on a multislice, multidetector CT scanner. Auto dosage reduction and iterative reconstruction techniques employed. FINDINGS: No focal abnormal parenchymal density is identified. There is no mass effect, hemorrhage, or extraaxial collection. The basal cisterns and sulci over the convexities are mildly prominent. The ventricles are normal for age. IMPRESSION: No acute intracranial process Mild age-related atrophy
[2020-09-09] MEDS: Nicotine 14 MG/24 Hr Patch TRDERM SCH (10:35)
[2020-09-09] MEDS: PARoxetine 20 MG Tab PO SCH (10:45)
--- NOTE | 2020-09-09 11:43 | CR ---
Swallowing Function w Video INDICATION: Difficulty swallowing solids Fluoro images obtained 1 TECHNIQUE: Video swallowing study performed in conjunction with the Speech Pathology Staff. Patient was given barium in varying consistencies. Swallowing was observed fluoroscopically. FINDINGS: Patient swallowed the thin liquids without difficulty. There was some hesitancy and more difficulty swallowing thicker liquids. Patient had difficulty swallowing pudding texture as well as solids. No pharyngeal abnormality is identified. There is no nasopharyngeal reflux. There is no aspiration or penetration the airway See Speech Pathology Staff note for additional details.
[2020-09-09] MEDS ORDERED: Pantoprazole 40 MG Vial IV SCH ×2 (14:00→14:10)
--- NOTE | 2020-09-09 14:29 | OR ---
DATE OF PROCEDURE: 09/09/2020 SURGEON: Balta Ortiz MD PROCEDURE: Esophagogastroduodenoscopy. FINDINGS: Mild inflammation at GE junction. COMPLICATIONS: None. ANGLE SHEARER: None. PREOPERATIVE DIAGNOSIS: Dysphagia. POSTOPERATIVE DIAGNOSIS: Dysphagia. RISKS: Risks, benefits, alternatives, limitations including but not limited to infection, bleeding, perforation, false positives, and false negatives were explained to the patient who wished to proceed. PROCEDURE IN DETAIL: The patient was placed in left lateral decubitus position. The EGD scope was introduced and advanced atraumatically to the second part of the duodenum. No evidence of duodenitis or ulceration. No old or new blood. Within the stomach itself, there was no gastritis or ulceration. At the GE junction, there was no narrowing, no stricturing. The patient had mild inflammation concerning for reflux disease. This was biopsied multiple times using cold biopsy forceps. The remainder of the esophagus was inspected without abnormality. The air was removed from the stomach. The patient tolerated the procedure well. Balta Ortiz MD /[id number]
[2020-09-09] MEDS: Acetaminophen/oxyCODONE 325-10 MG Tab PO PRN ×2 (15:27→22:55)
[2020-09-10] MEDS: Sodium Chloride 0.9% 1,000 ML IV SCH (05:13)
[2020-09-10] MEDS: Acetaminophen/oxyCODONE 325-10 MG Tab PO PRN (05:13)
[2020-09-10] MEDS: Nicotine 14 MG/24 Hr Patch TRDERM SCH (09:28)
[2020-09-10] MEDS: PARoxetine 20 MG Tab PO SCH (09:32)
[2020-09-10] MEDS ORDERED: HYDROmorphone 1 MG/ML Syringe ONE (10:56)
[2020-09-10] MEDS: HYDROmorphone 1 MG/ML Syringe IVPUSH PRN ×7 (10:57→23:41)
[2020-09-10] MEDS: Ondansetron 4 MG/2 ML SDV IV PRN ×2 (11:04→23:46)
--- NOTE | 2020-09-10 11:52 | PCM.PN ---
- General Info Date of Service: 09/10/20 Subjective Update: There were no acute events overnight. The patient was able to eat one bread stick and a little bit of toast along with some fluids. He did not have any chest pain overnight. He did require supplemental oxygen for mild hypoxia. He does report feeling short of breath this morning. He also reported severe periumbilical abdominal pain and nausea at the time of our evaluation. He did receive a dose of hydromorphone and ondansetron and his pain resolved. EKG was obtained at that time and did not show any acute changes. He thinks his swallowing is a little better but still not great. Functional Status: Reports: Tolerating Diet - Review of Systems General: Denies: Fever Pulmonary: Reports: Shortness of Breath Gastrointestinal: Reports: Abdominal Pain, Nausea - Patient Data Vitals - Most Recent: Last Vital Signs Temp 36.6 C 09/10/20 11:15 Pulse 86 09/10/20 11:15 Resp 20 09/10/20 11:15 BP 112/50 L 09/10/20 11:15 Pulse Ox 96 09/10/20 11:36 Weight - Most Recent: 86.636 kg I&O - Last 24 Hours: Intake & Output 09/09/20 09/10/20 09/10/20 22:59 06:59 14:59 Intake Total 700 Output Total 625 400 Balance 75 -400 Lab Results Last 24 Hours: Laboratory Results - last 24 hr 09/10/20 09/10/20 09/10/20 Range/Units 04:10 04:10 04:10 WBC 7.0 (4.5-11.0) K/uL RBC 3.96 L (4.30-5.90) M/uL Hgb 11.9 L (12.0-15.0) g/dL Hct 36.8 L (40.0-54.0) % MCV 93 (80-98) fL MCH 30 (27-31) pg MCHC 32 (32-36) % Plt Count 198 (150-400) K/uL Neut % (Auto) 53 (36-66) % Lymph % (Auto) 31 (24-44) % Heard % (Auto) 9 H (2-6) % Eos % (Auto) 6 H (2-4) % Baso % (Auto) 1 (0-1) % ESR 21 H (0-20) mm/hr Sodium 141 (140-148) mmol/L Potassium 4.3 (3.6-5.2) mmol/L Chloride 107 (100-108) mmol/L Carbon Dioxide 22 (21-32) mmol/L Anion Gap 11.6 (5.0-14.0) mmol/L BUN 17 (7-18) mg/dL Creatinine 1.1 (0.8-1.3) mg/dL Est Cr Clr Drug Dosing 80.81 mL/min Estimated GFR (MDRD) > 60 (>60) Glucose 91 (74-106) mg/dL Calcium 7.9 L (8.5-10.1) mg/dL C-Reactive Protein (0.0-0.3) mg/dL TSH, Ultra Sensitive (0.358-3.740) uIU/mL 09/10/20 Range/Units 04:10 WBC (4.5-11.0) K/uL RBC (4.30-5.90) M/uL Hgb (12.0-15.0) g/dL Hct (40.0-54.0) % MCV (80-98) fL MCH (27-31) pg MCHC (32-36) % Plt Count (150-400) K/uL Neut % (Auto) (36-66) % Lymph % (Auto) (24-44) % Heard % (Auto) (2-6) % Eos % (Auto) (2-4) % Baso % (Auto) (0-1) % ESR (0-20) mm/hr Sodium (140-148) mmol/L Potassium (3.6-5.2) mmol/L Chloride (100-108) mmol/L Carbon Dioxide (21-32) mmol/L Anion Gap (5.0-14.0) mmol/L BUN (7-18) mg/dL Creatinine (0.8-1.3) mg/dL Est Cr Clr Drug Dosing mL/min Estimated GFR (MDRD) (>60) Glucose (74-106) mg/dL Calcium (8.5-10.1) mg/dL C-Reactive Protein 0.41 H (0.0-0.3) mg/dL TSH, Ultra Sensitive 1.197 (0.358-3.740) uIU/mL Med Orders - Current: Current Medications Albuterol (Albuterol 0.083% 2.5 Mg/3 Ml Neb Soln) 2.5 mg NEB Q4H PRN PRN Reason: Shortness Of Breath/wheezing Albuterol/Ipratropium (Albuterol/Ipratropium 3.0-0.5 Mg/3 Ml Neb Soln) 3 ml NEB QID PRN PRN Reason: Shortness Of Breath/wheezing Bisacodyl (Bisacodyl 5 Mg Tab) 5 mg PO DAILY PRN PRN Reason: Constipation Diphenhydramine HCl (Diphenhydramine 50 Mg/Ml Sdv) 25 - 50 mg IVPUSH Q4H PRN PRN Reason: Itching Docusate Sodium (Docusate Sodium 100 Mg Cap) 100 mg PO BID PRN PRN Reason: Constipation Hydromorphone HCl (Hydromorphone 1 Mg/Ml Syringe) 1 mg IVPUSH Q2H PRN PRN Reason: Pain Last Admin: 09/10/20 10:57 Dose: 1 mg Documented by: Promethazine HCl 25 mg/ Sodium (Chloride) 51 mls @ 200 mls/hr IV Q6H PRN PRN Reason: Nausea/Vomiting Lorazepam (Lorazepam 2 Mg/Ml Sdv) 1 mg IV Q6H PRN PRN Reason: Anxiety Last Admin: 09/09/20 05:49 Dose: 1 mg Documented by: Nicotine (Nicotine 14 Mg/24 Hr Patch) 14 mg TRDERM DAILY [facility] Last Admin: 09/10/20 09:28 Dose: Not Given Documented by: Nitroglycerin (Nitroglycerin 0.4 Mg Tab.Sl) 0.4 mg SL ASDIRECTED PRN PRN Reason: Chest Pain Ondansetron HCl (Ondansetron 4 Mg/2 Ml Sdv) 4 mg IV Q4H PRN PRN Reason: Nausea/Vomiting Last Admin: 09/10/20 11:04 Dose: 4 mg Documented by: Oxycodone/Acetaminophen (Acetaminophen/Oxycodone 325-10 Mg Tab) 1 tab PO Q6H PRN PRN Reason: Pain (moderate 4-6) Last Admin: 09/10/20 05:13 Dose: 1 tab Documented by: Paroxetine HCl (Paroxetine 20 Mg Tab) 40 mg PO DAILY [facility] Last Admin: 09/10/20 09:32 Dose: 40 mg Documented by: Scopolamine (Scopolamine 1.5 Mg Transdermal Patch) 1.5 mg TRDERM Q72H PRN PRN Reason: Nausea/Vomiting Sodium Chloride (Sodium Chloride 0.9% 10 Ml Syringe) 10 ml FLUSH ASDIRECTED PRN PRN Reason: Keep Vein Open Last Admin: 09/09/20 00:58 Dose: 10 ml Documented by: Discontinued Medications Amlodipine Besylate (Amlodipine 5 Mg Tab) 10 mg PO DAILY [facility] Last Admin: 09/09/20 10:45 Dose: 10 mg Documented by: Diphenhydramine HCl (Diphenhydramine 50 Mg/Ml Sdv) 25 mg IVPUSH Q4H PRN PRN Reason: Itching Fentanyl (Fentanyl 100 Mcg/2 Ml Sdv) Confirm Administered Dose 100 mcg .ROUTE .STK-MED ONE Stop: 09/09/20 07:16 Hydromorphone HCl (Hydromorphone 0.5 Mg/0.5 Ml Syringe) 0.5 mg IVPUSH ONETIME ONE Stop: 09/09/20 00:53 Last Admin: 09/09/20 00:57 Dose: 0.5 mg Documented by: Hydromorphone HCl (Hydromorphone 1 Mg/Ml Syringe) 1 mg IVPUSH ONETIME ONE Stop: 09/09/20 04:15 Last Admin: 09/09/20 04:55 Dose: 1 mg Documented by: Hydromorphone HCl (Hydromorphone 1 Mg/Ml Syringe) Confirm Administered Dose 1 mg .ROUTE .STK-MED ONE Stop: 09/10/20 10:57 Last Admin: 09/10/20 11:02 Dose: Not Given Documented by: Sodium Chloride (Normal Saline) 1,000 mls @ 999 mls/hr IV .BOLUS ONE Stop: 09/09/20 01:39 Last Admin: 09/09/20 00:49 Dose: 999 mls/hr Documented by: Sodium Chloride (Normal Saline) 100 mls @ 3 mls/sec IV ASDIRECTED [facility] Stop: 09/09/20 01:08 Last Admin: 09/09/20 01:15 Dose: 3 mls/sec Documented by: Potassium Chloride 20 meq/ (Premix) 100 mls @ 50 mls/hr IV ONETIME ONE Stop: 09/09/20 03:33 Last Admin: 09/09/20 02:04 Dose: 50 mls/hr Documented by: Sodium Chloride (Normal Saline) 1,000 mls @ 150 mls/hr IV ASDIRECTED [facility] Last Admin: 09/09/20 11:18 Dose: 150 mls/hr Documented by: Pantoprazole Sodium 80 mg/ (Sodium Chloride) 100 mls @ 200 mls/hr IV .BOLUS [facility] Last Admin: 09/09/20 04:48 Dose: 200 mls/hr Documented by: Potassium Chloride 20 meq/ (Premix) 100 mls @ 50 mls/hr IV ONETIME ONE Stop: 09/09/20 04:15 Last Admin: 09/09/20 05:29 Dose: 50 mls/hr Documented by: Lactated Ringer's (Ringers, Lactated) Confirm Administered Dose 1,000 mls @ as directed .ROUTE .STK-MED ONE Stop: 09/09/20 07:53 Sodium Chloride (Normal Saline) 1,000 mls @ 100 mls/hr IV ASDIRECTED [facility] Last Admin: 09/10/20 05:13 Dose: 100 mls/hr Documented by: Iopamidol (Iopamidol 612 Mg/Ml 100 Ml Bottle) 100 ml IV . DIRECTED STA Stop: 09/09/20 01:08 Last Admin: 09/09/20 01:15 Dose: 100 ml Documented by: Lidocaine HCl (Lidocaine 1% 5 Ml Sdv) 2 ml INJECT ONETIME ONE Stop: 09/09/20 01:37 Last Admin: 09/09/20 02:04 Dose: 2 ml Documented by: Lidocaine HCl (Lidocaine 1% 5 Ml Sdv) Confirm Administered Dose 5 ml .ROUTE .STK-MED ONE Stop: 09/09/20 04:14 Last Admin: 09/09/20 05:29 Dose: 5 ml Documented by: Lorazepam (Lorazepam 2 Mg/Ml Sdv) Confirm Administered Dose 2 mg .ROUTE .STK-MED ONE Stop: 09/09/20 05:47 Last Admin: 09/09/20 05:54 Dose: Not Given Documented by: Midazolam HCl (Midazolam 1 Mg/Ml 2 Ml Sdv) Confirm Administered Dose 2 mg .ROUTE .STK-MED ONE Stop: 09/09/20 07:16 Miscellaneous Information (Remove Patch) 1 ea TRDERM Q24H [facility] Morphine Sulfate (Morphine 2 Mg/Ml Syringe) 2 mg IVPUSH Q2H PRN PRN Reason: Pain (severe 7-10) Last Admin: 09/09/20 11:16 Dose: 2 mg Documented by: Ondansetron HCl (Ondansetron 4 Mg/2 Ml Sdv) 4 mg IVPUSH ONETIME ONE Stop: 09/09/20 00:40 Last Admin: 09/09/20 00:55 Dose: 4 mg Documented by: Pantoprazole Sodium (Pantoprazole 40 Mg Vial) 40 mg IV Q12H [facility] Last Admin: 09/09/20 13:30 Dose: 40 mg Documented by: Propofol (Propofol 200 Mg/20 Ml Sdv) Confirm Administered Dose 200 mg .ROUTE .STK-MED ONE Stop: 09/09/20 07:16 Propofol (Propofol 200 Mg/20 Ml Sdv) Confirm Administered Dose 200 mg .ROUTE .STK-MED ONE Stop: 09/09/20 07:47 - Exam Quality Assessment: Supplemental Oxygen General: Alert, Oriented, Cooperative, No Acute Distress Lungs: Clear to Auscultation, Normal Respiratory Effort Cardiovascular: Regular Rate, Regular Rhythm GI/Abdominal Exam: Soft, No Distention, Tender (mild periumbilical ) Extremities: No Pedal Edema. No: Increased Warmth Skin: Warm, Dry Psy/Mental Status: Alert, Normal Affect - Patient Data Lab Results Last 24 hrs: Laboratory Results - last 24 hr 09/10/20 09/10/20 09/10/20 Range/Units 04:10 04:10 04:10 WBC 7.0 (4.5-11.0) K/uL RBC 3.96 L (4.30-5.90) M/uL Hgb 11.9 L (12.0-15.0) g/dL Hct 36.8 L (40.0-54.0) % MCV 93 (80-98) fL MCH 30 (27-31) pg MCHC 32 (32-36) % Plt Count 198 (150-400) K/uL Neut % (Auto) 53 (36-66) % Lymph % (Auto) 31 (24-44) % Heard % (Auto) 9 H (2-6) % Eos % (Auto) 6 H (2-4) % Baso % (Auto) 1 (0-1) % ESR 21 H (0-20) mm/hr Sodium 141 (140-148) mmol/L Potassium 4.3 (3.6-5.2) mmol/L Chloride 107 (100-108) mmol/L Carbon Dioxide 22 (21-32) mmol/L Anion Gap 11.6 (5.0-14.0) mmol/L BUN 17 (7-18) mg/dL Creatinine 1.1 (0.8-1.3) mg/dL Est Cr Clr Drug Dosing 80.81 mL/min Estimated GFR (MDRD) > 60 (>60) Glucose 91 (74-106) mg/dL Calcium 7.9 L (8.5-10.1) mg/dL C-Reactive Protein (0.0-0.3) mg/dL TSH, Ultra Sensitive (0.358-3.740) uIU/mL 09/10/20 Range/Units 04:10 WBC (4.5-11.0) K/uL RBC (4.30-5.90) M/uL Hgb (12.0-15.0) g/dL Hct (40.0-54.0) % MCV (80-98) fL MCH (27-31) pg MCHC (32-36) % Plt Count (150-400) K/uL Neut % (Auto) (36-66) % Lymph % (Auto) (24-44) % Heard % (Auto) (2-6) % Eos % (Auto) (2-4) % Baso % (Auto) (0-1) % ESR (0-20) mm/hr Sodium (140-148) mmol/L Potassium (3.6-5.2) mmol/L Chloride (100-108) mmol/L Carbon Dioxide (21-32) mmol/L Anion Gap (5.0-14.0) mmol/L BUN (7-18) mg/dL Creatinine (0.8-1.3) mg/dL Est Cr Clr Drug Dosing mL/min Estimated GFR (MDRD) (>60) Glucose (74-106) mg/dL Calcium (8.5-10.1) mg/dL C-Reactive Protein 0.41 H (0.0-0.3) mg/dL TSH, Ultra Sensitive 1.197 (0.358-3.740) uIU/mL Result Diagrams: 09/10/20 04:10 09/10/20 04:10 Sepsis Event Note - Evaluation Sepsis Screening Result: No Definite Risk - Focused Exam Vital Signs: Vital Signs Temp Pulse Resp BP Pulse Ox Pulse Ox 09/10/20 11:36 96 09/10/20 11:15 36.6 C 86 20 112/50 L 92 L 09/10/20 11:00 36.6 C 85 18 111/50 L 97 09/10/20 07:00 36.5 C 81 18 110/58 L 94 L 09/10/20 04:40 22 H 97 09/10/20 04:00 36.1 C 86 18 99/51 L 90 L - Problem List Review Problem List Initiated/Reviewed/Updated: Yes - My Orders Last 24 Hours: My Active Orders 09/09/20 13:44 Acetaminophen/oxyCODONE [Percocet 325-10 MG] 1 tab PO Q6H PRN 09/09/20 Dinner Advance Diet Instructions [DIET] 09/10/20 04:10 CRUZITO W/REFLEX Routine PROTEIN ELEC + INTERP, SERUM Routine 09/10/20 10:52 EKG 12 Lead [EK] Routine 09/10/20 10:55 HYDROmorphone [Dilaudid] 1 mg IVPUSH Q2H PRN 09/10/20 11:19 D-DIMER QUANTITATIVE [COAG] Urgent LACTIC ACID [CHEM] Urgent TROPONIN I [CHEM] Urgent 09/10/20 11:50 Convert IV to Saline Lock [OM.PC] Routine - Plan Plan:: ASSESSMENT AND PLAN - Dysphasia-seems to be only with solid foods and thicker liquids. Does fine with regular liquids. Video swallow was unremarkable other than some hesitancy with solids. EGD was normal. CT of the chest, abdomen and pelvis was unremarkable. Examination is unremarkable. He had an extensive neurologic examination today which was also unremarkable. Swallowing seems to be a little better today. -Advance diet as tolerated -Pain and nausea management -Surgical consultation in the morning or if condition deteriorates Dyspnea on exertion, abdominal pain and nausea-etiology not entirely clear. Extensive work-up so far including head CT, chest CT, abdomen and pelvis CT, EGD and fairly extensive lab work. All of this has been reassuring. D-dimer is normal so PE extremely unlikely. 2 troponin levels have been normal. EKG was nonischemic. Bedside ultrasound showed normal left ventricular function but possibly some right ventricular dysfunction. I think that occult coronary artery disease with significant stenosis especially possible with a right coronary blockage could be considered. Chronic cholecystitis/biliary dyskinesia could be considered. -Symptomatic management of pain and nausea -Reassess tomorrow, consider stress test versus HIDA scan on Saturday Hypokalemia -improved with supplementation. -recheck Potassium in am Coronary Artery Disease- had a [place] with stent placed 3 years ago, has blood clotting disorder, no history of PE. -Hold apixaban in case surgery is indicated Chronic Back pain and arthritis-stable. Probably had some narcotic withdrawal yesterday. Symptoms are improving with restarting his usual home medications. -pain medication ordered -Bowel regimen to avoid constipation Tobacco dependence-interested in nicotine patch. -Encourage cessation Maintenance issues - - DVT prophylaxis - SCD - GI prophylaxis -PPI - Nutrition -advance diet as tolerated Disposition -I would anticipate discharge home after the hospital stay Primary care physician - Dr. Stock, [facility] Mc Dixon M.D.
[2020-09-11] MEDS: HYDROmorphone 1 MG/ML Syringe IVPUSH PRN ×4 (02:00→08:01)
[2020-09-11] MEDS: LORazepam 2 MG/ML SDV IV PRN (05:56)
[2020-09-11] MEDS: Ondansetron 4 MG/2 ML SDV IV PRN ×2 (08:34→23:07)
[2020-09-11] MEDS ORDERED: Naloxone 0.4 MG/ML SDV IVPUSH PRN (10:00)
--- NOTE | 2020-09-11 10:06 | PCM.PN ---
- General Info Date of Service: 09/11/20 Subjective Update: There were no acute events overnight but patient continues to have abdominal pain as well as nausea and some vomiting. Pain continues to be located in the middle of his abdomen and sometimes the right upper quadrant. He has required pain medication about every 2 hours throughout the night. He has had episodes of diaphoresis but no fevers. No diarrhea. He feels short of breath. No chest pain. Functional Status: Denies: Pain Controlled, Tolerating Diet - Review of Systems General: Denies: Fever Pulmonary: Reports: Shortness of Breath Gastrointestinal: Reports: Abdominal Pain, Vomiting Skin: Reports: Diaphoresis - Patient Data Vitals - Most Recent: Last Vital Signs Temp 36.4 C 09/11/20 07:27 Pulse 102 H 09/11/20 07:27 Resp 16 09/11/20 07:27 BP 122/50 L 09/11/20 07:27 Pulse Ox 90 L 09/11/20 07:27 Weight - Most Recent: 86.636 kg I&O - Last 24 Hours: Intake & Output 09/10/20 09/11/20 09/11/20 22:59 06:59 14:59 Intake Total 3700 500 Output Total 200 350 300 Balance 3500 -350 200 Lab Results Last 24 Hours: Laboratory Results - last 24 hr 09/10/20 09/10/20 09/10/20 Range/Units 11:31 11:31 11:31 D-Dimer, Quantitative 308.95 (0.0-500.0) ng/mL Lactic Acid 1.8 (0.4-2.0) mmol/L Troponin I < 0.017 (0.000-0.056) ng/mL Med Orders - Current: Current Medications Albuterol (Albuterol 0.083% 2.5 Mg/3 Ml Neb Soln) 2.5 mg NEB Q4H PRN PRN Reason: Shortness Of Breath/wheezing Albuterol/Ipratropium (Albuterol/Ipratropium 3.0-0.5 Mg/3 Ml Neb Soln) 3 ml NEB QID PRN PRN Reason: Shortness Of Breath/wheezing Bisacodyl (Bisacodyl 5 Mg Tab) 5 mg PO DAILY PRN PRN Reason: Constipation Diphenhydramine HCl (Diphenhydramine 50 Mg/Ml Sdv) 25 - 50 mg IVPUSH Q4H PRN PRN Reason: Itching Docusate Sodium (Docusate Sodium 100 Mg Cap) 100 mg PO BID PRN PRN Reason: Constipation Hydromorphone HCl (Hydromorphone 1 Mg/Ml Syringe) 1 mg IVPUSH Q2H PRN PRN Reason: Pain Last Admin: 09/11/20 08:01 Dose: 1 mg Documented by: Promethazine HCl 25 mg/ Sodium (Chloride) 51 mls @ 200 mls/hr IV Q6H PRN PRN Reason: Nausea/Vomiting Lorazepam (Lorazepam 2 Mg/Ml Sdv) 1 mg IV Q6H PRN PRN Reason: Nausea/Vomiting Last Admin: 09/11/20 05:56 Dose: 1 mg Documented by: Nicotine (Nicotine 14 Mg/24 Hr Patch) 14 mg TRDERM DAILY [facility] Last Admin: 09/10/20 09:28 Dose: Not Given Documented by: Nitroglycerin (Nitroglycerin 0.4 Mg Tab.Sl) 0.4 mg SL ASDIRECTED PRN PRN Reason: Chest Pain Ondansetron HCl (Ondansetron 4 Mg/2 Ml Sdv) 4 mg IV Q4H PRN PRN Reason: Nausea/Vomiting Last Admin: 09/11/20 08:34 Dose: 4 mg Documented by: Oxycodone/Acetaminophen (Acetaminophen/Oxycodone 325-10 Mg Tab) 1 tab PO Q6H PRN PRN Reason: Pain (moderate 4-6) Last Admin: 09/10/20 05:13 Dose: 1 tab Documented by: Paroxetine HCl (Paroxetine 20 Mg Tab) 40 mg PO DAILY [facility] Last Admin: 09/10/20 09:32 Dose: 40 mg Documented by: Scopolamine (Scopolamine 1.5 Mg Transdermal Patch) 1.5 mg TRDERM Q72H PRN PRN Reason: Nausea/Vomiting Sodium Chloride (Sodium Chloride 0.9% 10 Ml Syringe) 10 ml FLUSH ASDIRECTED PRN PRN Reason: Keep Vein Open Last Admin: 09/09/20 00:58 Dose: 10 ml Documented by: Discontinued Medications Amlodipine Besylate (Amlodipine 5 Mg Tab) 10 mg PO DAILY [facility] Last Admin: 09/09/20 10:45 Dose: 10 mg Documented by: Diphenhydramine HCl (Diphenhydramine 50 Mg/Ml Sdv) 25 mg IVPUSH Q4H PRN PRN Reason: Itching Fentanyl (Fentanyl 100 Mcg/2 Ml Sdv) Confirm Administered Dose 100 mcg .ROUTE .STK-MED ONE Stop: 09/09/20 07:16 Hydromorphone HCl (Hydromorphone 0.5 Mg/0.5 Ml Syringe) 0.5 mg IVPUSH ONETIME ONE Stop: 09/09/20 00:53 Last Admin: 09/09/20 00:57 Dose: 0.5 mg Documented by: Hydromorphone HCl (Hydromorphone 1 Mg/Ml Syringe) 1 mg IVPUSH ONETIME ONE Stop: 09/09/20 04:15 Last Admin: 09/09/20 04:55 Dose: 1 mg Documented by: Hydromorphone HCl (Hydromorphone 1 Mg/Ml Syringe) Confirm Administered Dose 1 mg .ROUTE .STK-MED ONE Stop: 09/10/20 10:57 Last Admin: 09/10/20 11:02 Dose: Not Given Documented by: Sodium Chloride (Normal Saline) 1,000 mls @ 999 mls/hr IV .BOLUS ONE Stop: 09/09/20 01:39 Last Admin: 09/09/20 00:49 Dose: 999 mls/hr Documented by: Sodium Chloride (Normal Saline) 100 mls @ 3 mls/sec IV ASDIRECTED [facility] Stop: 09/09/20 01:08 Last Admin: 09/09/20 01:15 Dose: 3 mls/sec Documented by: Potassium Chloride 20 meq/ (Premix) 100 mls @ 50 mls/hr IV ONETIME ONE Stop: 09/09/20 03:33 Last Admin: 09/09/20 02:04 Dose: 50 mls/hr Documented by: Sodium Chloride (Normal Saline) 1,000 mls @ 150 mls/hr IV ASDIRECTED [facility] Last Admin: 09/09/20 11:18 Dose: 150 mls/hr Documented by: Pantoprazole Sodium 80 mg/ (Sodium Chloride) 100 mls @ 200 mls/hr IV .BOLUS [facility] Last Admin: 09/09/20 04:48 Dose: 200 mls/hr Documented by: Potassium Chloride 20 meq/ (Premix) 100 mls @ 50 mls/hr IV ONETIME ONE Stop: 09/09/20 04:15 Last Admin: 09/09/20 05:29 Dose: 50 mls/hr Documented by: Lactated Ringer's (Ringers, Lactated) Confirm Administered Dose 1,000 mls @ as directed .ROUTE .STK-MED ONE Stop: 09/09/20 07:53 Sodium Chloride (Normal Saline) 1,000 mls @ 100 mls/hr IV ASDIRECTED [facility] Last Admin: 09/10/20 05:13 Dose: 100 mls/hr Documented by: Iopamidol (Iopamidol 612 Mg/Ml 100 Ml Bottle) 100 ml IV . DIRECTED [facility] Stop: 09/09/20 01:08 Last Admin: 09/09/20 01:15 Dose: 100 ml Documented by: Lidocaine HCl (Lidocaine 1% 5 Ml Sdv) 2 ml INJECT ONETIME ONE Stop: 09/09/20 01:37 Last Admin: 09/09/20 02:04 Dose: 2 ml Documented by: Lidocaine HCl (Lidocaine 1% 5 Ml Sdv) Confirm Administered Dose 5 ml .ROUTE .STK-MED ONE Stop: 09/09/20 04:14 Last Admin: 09/09/20 05:29 Dose: 5 ml Documented by: Lorazepam (Lorazepam 2 Mg/Ml Sdv) Confirm Administered Dose 2 mg .ROUTE .STK-MED ONE Stop: 09/09/20 05:47 Last Admin: 09/09/20 05:54 Dose: Not Given Documented by: Midazolam HCl (Midazolam 1 Mg/Ml 2 Ml Sdv) Confirm Administered Dose 2 mg .ROUTE .STK-MED ONE Stop: 09/09/20 07:16 Miscellaneous Information (Remove Patch) 1 ea TRDERM Q24H [facility] Morphine Sulfate (Morphine 2 Mg/Ml Syringe) 2 mg IVPUSH Q2H PRN PRN Reason: Pain (severe 7-10) Last Admin: 09/09/20 11:16 Dose: 2 mg Documented by: Ondansetron HCl (Ondansetron 4 Mg/2 Ml Sdv) 4 mg IVPUSH ONETIME ONE Stop: 09/09/20 00:40 Last Admin: 09/09/20 00:55 Dose: 4 mg Documented by: Pantoprazole Sodium (Pantoprazole 40 Mg Vial) 40 mg IV Q12H [facility] Last Admin: 09/09/20 13:30 Dose: 40 mg Documented by: Propofol (Propofol 200 Mg/20 Ml Sdv) Confirm Administered Dose 200 mg .ROUTE .STK-MED ONE Stop: 09/09/20 07:16 Propofol (Propofol 200 Mg/20 Ml Sdv) Confirm Administered Dose 200 mg .ROUTE .STK-MED ONE Stop: 09/09/20 07:47 - Exam Quality Assessment: Supplemental Oxygen General: Alert, Oriented, Cooperative, Mild Distress Lungs: Normal Respiratory Effort. No: Wheezing Cardiovascular: Regular Rate, Regular Rhythm, Tachycardia GI/Abdominal Exam: No Distention, Tender (RUQ) Extremities: No Pedal Edema. No: Increased Warmth Skin: Warm, Dry Psy/Mental Status: Alert, Normal Affect - Patient Data Lab Results Last 24 hrs: Laboratory Results - last 24 hr 09/10/20 09/10/20 09/10/20 Range/Units 11:31 11:31 11:31 D-Dimer, Quantitative 308.95 (0.0-500.0) ng/mL Lactic Acid 1.8 (0.4-2.0) mmol/L Troponin I < 0.017 (0.000-0.056) ng/mL Result Diagrams: 09/10/20 04:10 09/10/20 04:10 Sepsis Event Note - Evaluation Sepsis Screening Result: No Definite Risk - Focused Exam Vital Signs: Vital Signs Temp Pulse Resp BP Pulse Ox 09/11/20 07:27 36.4 C 102 H 16 122/50 L 90 L 09/11/20 02:02 36.1 C 104 H 18 119/47 L 91 L 09/10/20 22:39 35.7 C L 87 18 123/54 L 90 L - Problem List Review Problem List Initiated/Reviewed/Updated: Yes - My Orders Last 24 Hours: My Active Orders 09/10/20 10:52 EKG 12 Lead [EK] Routine 09/10/20 10:55 HYDROmorphone [Dilaudid] 1 mg IVPUSH Q2H PRN 09/10/20 11:50 Convert IV to Saline Lock [OM.PC] Routine 09/11/20 Breakfast Regular Diet [DIET] 09/11/20 10:00 Communication Order [RC] STAT Notify Provider [RC] PRN [employer]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 Record [RC] PER UNIT ROUTINE Pulse Oximetry [RC] CONTINUOUS Ciprofloxacin in D5W [Cipro in D5W 400 MG/200 ML] 400 mg Premix Bag 1 bag IV Q12H HYDROmorphone/Normal Saline [Dilaudid 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 15 MG in NS 30 ML] See Protocol IV ASDIRECTED PRN Naloxone [Narcan] 0.4 mg IVPUSH Q2M PRN Sodium Chloride 0.9% [Normal Saline] 1,000 ml IV ASDIRECTED metroNIDAZOLE/Normal Saline [Flagyl in NS 500 MG/100 ML] 500 mg Premix Bag 1 bag IV Q8H Medication Discontinuation Instructions [OM.PC] Stat 09/11/20 Dinner NPO After Midnight [Nothing per Oral After Midnight Diet] [DIET] 09/12/20 05:00 CBC W/O DIFF,HEMOGRAM [HEME] Timed (1) COMPREHENSIVE METABOLIC PN,CMP [CHEM] Timed 09/12/20 07:00 Cholescintigraphy w Pharm Int [NM] Routine - Plan Plan:: ASSESSMENT AND PLAN - Dysphasia-seems to be only with solid foods and thicker liquids. Did better with regular foods yesterday. Work-up has been negative. -Advance diet as tolerated -Pain and nausea management -Surgical consultation in the morning or if condition deteriorates Dyspnea on exertion, abdominal pain and nausea-etiology not entirely clear. Extensive work-up so far including head CT, chest CT, abdomen and pelvis CT, EGD and fairly extensive lab work. All of this has been reassuring. D-dimer is normal so PE extremely unlikely. 2 troponin levels have been normal. EKG was nonischemic. Bedside ultrasound showed normal left ventricular function but possibly some right ventricular dysfunction. I think that occult coronary artery disease with significant stenosis especially possible with a right coronary blockage could be considered. Chronic cholecystitis/biliary dyskinesia could be considered. With ongoing nausea, vomiting and pain I think that chronic cholecystitis makes the most sense. -HIDA in the morning -Start empiric antibiotics to cover enteric organisms (ciprofloxacin and metronidazole) -Symptomatic management of pain and nausea Hypokalemia -improved with supplementation. -recheck Potassium in am Coronary Artery Disease- had a KS with stent placed 3 years ago, has blood clotting disorder, no history of PE. -Hold apixaban in case surgery is indicated Chronic Back pain and arthritis-stable. Probably had some narcotic withdrawal yesterday. Symptoms are improving with restarting his usual home medications. -pain medication ordered -Bowel regimen to avoid constipation Tobacco dependence-interested in nicotine patch. -Encourage cessation Maintenance issues - - DVT prophylaxis - SCD - GI prophylaxis -PPI - Nutrition -advance diet as tolerated, n.p.o. after midnight Disposition -I would anticipate discharge home after the hospital stay Primary care physician - Dr. Stock, [facility] Mc Dixon M.D.
[2020-09-11] MEDS: HYDROmorphone/Normal Saline 15 MG/30 ML PCA IV PRN (10:57)
[2020-09-11] MEDS: Sodium Chloride 0.9% 1,000 ML IV SCH ×2 (10:57→23:12)
[2020-09-11] MEDS: Ciprofloxacin in D5W 400 MG in Premix Bag 1 BAG IV SCH ×4 (11:03→22:46)
[2020-09-11] MEDS: Nicotine 14 MG/24 Hr Patch TRDERM SCH (11:26)
[2020-09-11] MEDS: metroNIDAZOLE/Normal Saline 500 MG in Premix Bag 1 BAG IV SCH ×2 (12:46→20:58)
[2020-09-11] MEDS: PARoxetine 20 MG Tab PO SCH (13:38)
[2020-09-11] MEDS: Promethazine 25 MG in Sodium Chloride 0.9% 50 ML IV PRN (14:31)
[2020-09-11] MEDS ORDERED: Sodium Chloride 0.9% 500 ML IV ONE (17:30)
[2020-09-12] MEDS: LORazepam 2 MG/ML SDV IV PRN (00:17)
[2020-09-12] MEDS: metroNIDAZOLE/Normal Saline 500 MG in Premix Bag 1 BAG IV SCH ×2 (03:08→13:19)
[2020-09-12] MEDS: Promethazine 25 MG in Sodium Chloride 0.9% 50 ML IV PRN (04:51)
[2020-09-12] MEDS ORDERED: Dexamethasone 4 MG/ML SDV IVPUSH ONE (05:23)
[2020-09-12] MEDS ORDERED: Sodium Chloride 0.9% 1,000 ML IV ONE (05:23)
[2020-09-12] MEDS ORDERED: Dexamethasone 4 MG/ML SDV ONE (05:31)
[2020-09-12] MEDS: Sodium Chloride 0.9% 1,000 ML IV SCH (10:00)
[2020-09-12] MEDS: Nicotine 14 MG/24 Hr Patch TRDERM SCH (10:53)
[2020-09-12] MEDS: Ciprofloxacin in D5W 400 MG in Premix Bag 1 BAG IV SCH ×2 (10:54)
[2020-09-12] MEDS: PARoxetine 20 MG Tab PO SCH (10:56)
[2020-09-12] MEDS: Ondansetron 4 MG/2 ML SDV IV PRN (11:10)
--- NOTE | 2020-09-12 13:05 | NM ---
HEPATOBILIARY SCAN WITH EJECTION FRACTION: Clinical History: Postprandial abdominal pain and vomiting Multiple images of the hepatobiliary system were obtained following the IV injection of 5.0 mCi of technetium 99m Choletec. 60 minutes into the study the patient was given8 ounces of Ensure Plus by mouth for fatty meal]Quantitative analysis of the gallbladder was performed. Findings: There is a normal pattern of hepatic uptake. Biliary activity is seen at 25minutes. Gallbladder activity is seen at 30minutes. Intestinal activity is seen on the postfatty meal images Following the Kinevac infusion the gallbladder ejection fraction was calculated at 11%. Impression:There is some delay in intestinal activity. Gallbladder was visualized The gallbladder ejection fraction wasabnormally low at 11%
[2020-09-12] MEDS ORDERED: Sodium Chloride 0.9% 10 ML Syringe FLUSH ONE (14:58)
[2020-09-12] MEDS ORDERED: Furosemide 40 MG/4 ML VIAL IVPUSH ONE (15:00)
[2020-09-12] MEDS ORDERED: Sodium Chloride 0.9% 90 ML IV SCH (15:00)
[2020-09-12] MEDS ORDERED: Sodium Chloride 0.9% 1,000 ML IV SCH (15:00)
[2020-09-12] MEDS ORDERED: Iopamidol 755 Mg/ML 100 ML Bottle IV SCH (15:00)
--- NOTE | 2020-09-12 16:16 | CRLCT ---
INDICATION: HYPOXIA, DYSPNEA CT CHEST WITH CONTRAST TECHNIQUE: Multidetector CT imaging was performed through the chest following intravenous contrast administration using 85 mL Isovue 370. Coronal and sagittal reconstructions were generated. COMPARISON: 09/09/[address] FINDINGS: Lungs and airways: Pulmonary emphysematous changes, as before. New moderate-sized area of perihilar infiltrate in the right lung. Additional small areas of patchy infiltrate in the upper lobes bilaterally. Bibasilar atelectasis likely reflecting compressive atelectasis due to pleural effusions. Mild thickening of interstitial septa in the lung apices, new from before, suggesting mild interstitial edema. Central airways are patent. Pleura and pleural spaces: Moderate-sized bilateral pleural effusions, right slightly larger than left, new compared to the previous exam. Heart and mediastinum: Normal heart size. No significant pericardial effusion. Multiple mildly enlarged mediastinal lymph nodes in the AP window and subcarinal space. Vascular structures: No filling defects in the pulmonary arterial tree to suggest pulmonary emboli. Normal caliber thoracic aorta. Left coronary artery calcification or stent. Chest wall and axillae: No mass or axillary lymphadenopathy. Osseous structures: Mild spinal degenerative changes. Incidental T5 vertebral hemangioma. No acute fractures identified. Upper abdomen: Unremarkable. IMPRESSION: 1. New right perihilar and patchy bilateral upper lobe pulmonary infiltrates. An infectious/inflammatory etiology and/or pulmonary edema are the most likely considerations. 2. New moderate-sized bilateral pleural effusions. Probable mild pulmonary interstitial edema. 3. New mild mediastinal lymphadenopathy, possibly reactive. 4. No pulmonary emboli identified. 5. Nonacute additional findings as detailed above. DEE DEE VILLANUEVA MD [facility] Dictated by Vj Villanueva MD @ 09/12/2020 4:08:11 PM Dictated by: Vj Villanueva MD @ 09/12/2020 16:14:47 (Electronically Signed)
--- NOTE | 2020-09-12 16:49 | PCM.PN ---
- General Info Date of Service: 09/12/20 Subjective Update: Mr. Browning has not felt as well over the last 24 hours with increased shortness of breath, weakness, abdominal pain, and diaphoresis. HIDA scan was performed t perfecto and found to be positive, symptoms were reproduced with use of Ensure and ejection fraction was noted to be very low at 11%. Echocardiogram was obtained and shows hyperdynamic left ventricular function, moderate MR and TR. CT scan of the chest with contrast showed no evidence of pulmonary emboli but did document pleural effusions and bilateral upper lobe infiltrates consistent with infection versus fluid. Functional Status: Reports: Tolerating Diet, Urinating - Review of Systems General: Reports: Weakness, Fatigue. Denies: Fever, Chills Pulmonary: Reports: Shortness of Breath, Cough. Denies: Pleuritic Chest Pain, Sputum, Hemoptysis, Wheezing Cardiovascular: Reports: Dyspnea on Exertion, Edema. Denies: Chest Pain, Palpitations, Orthopnea, PND, Lightheadedness Gastrointestinal: Reports: Abdominal Pain, Difficulty Swallowing, Nausea. Denies: Hematochezia, Melena, Vomiting Genitourinary: Reports: No Symptoms - Patient Data Vitals - Most Recent: Last Vital Signs Temp 97.7 F 09/12/20 15:56 Pulse 90 09/12/20 15:56 Resp 16 09/12/20 15:56 BP 106/51 L 09/12/20 15:56 Pulse Ox 94 L 09/12/20 15:56 Weight - Most Recent: 191 lb I&O - Last 24 Hours: Intake & Output 09/12/20 09/12/20 09/12/20 06:59 14:59 22:59 Intake Total 2420 480 885 Output Total 400 200 Balance 2020 280 885 Lab Results Last 24 Hours: Laboratory Results - last 24 hr 09/12/20 09/12/20 Range/Units 05:55 05:55 WBC 9.0 (4.5-11.0) K/uL RBC 3.71 L (4.30-5.90) M/uL Hgb 11.1 L (12.0-15.0) g/dL Hct 35.5 L (40.0-54.0) % MCV 96 (80-98) fL MCH 30 (27-31) pg MCHC 31 L (32-36) % Plt Count 221 (150-400) K/uL Sodium 136 L (140-148) mmol/L Potassium 5.2 (3.6-5.2) mmol/L Chloride 104 (100-108) mmol/L Carbon Dioxide 19 L (21-32) mmol/L Anion Gap 18.2 H (5.0-14.0) mmol/L BUN 26 H D (7-18) mg/dL Creatinine 1.5 H (0.8-1.3) mg/dL Est Cr Clr Drug Dosing 59.26 mL/min Estimated GFR (MDRD) 49 L (>60) Glucose 118 H (74-106) mg/dL Calcium 8.1 L (8.5-10.1) mg/dL Total Bilirubin 0.7 (0.2-1.0) mg/dL AST 32 (15-37) U/L ALT 40 (12-78) U/L Alkaline Phosphatase 122 H (46-116) U/L Total Protein 6.0 L (6.4-8.2) g/dL Albumin 2.8 L (3.4-5.0) g/dL Globulin 3.2 (2.3-3.5) g/dL Albumin/Globulin Ratio 0.9 L (1.2-2.2) Med Orders - Current: Current Medications Albuterol (Albuterol 0.083% 2.5 Mg/3 Ml Neb Soln) 2.5 mg NEB Q4H PRN PRN Reason: Shortness Of Breath/wheezing Albuterol/Ipratropium (Albuterol/Ipratropium 3.0-0.5 Mg/3 Ml Neb Soln) 3 ml NEB QID PRN PRN Reason: Shortness Of Breath/wheezing Bisacodyl (Bisacodyl 5 Mg Tab) 5 mg PO DAILY PRN PRN Reason: Constipation Diphenhydramine HCl (Diphenhydramine 50 Mg/Ml Sdv) 25 - 50 mg IVPUSH Q4H PRN PRN Reason: Itching Docusate Sodium (Docusate Sodium 100 Mg Cap) 100 mg PO BID PRN PRN Reason: Constipation Hydromorphone HCl (Hydromorphone/Normal Saline 15 Mg/30 Ml Production Operator) 0 mg IV ASDIRECTED PRN; Protocol PRN Reason: Pain Last Admin: 09/11/20 10:57 Dose: 15 mg Documented by: Promethazine HCl 25 mg/ Sodium (Chloride) 51 mls @ 200 mls/hr IV Q6H PRN PRN Reason: Nausea/Vomiting Last Admin: 09/12/20 04:51 Dose: 200 mls/hr Documented by: Sodium Chloride (Normal Saline) 1,000 mls @ 50 mls/hr IV ASDIRECTED [facility] Meropenem 1 gm/ Sodium (Chloride) 100 mls @ 200 mls/hr IV Q8H [facility] Levofloxacin/Dextrose 750 mg/ (Premix) 150 mls @ 100 mls/hr IV Q24H [facility] Lorazepam (Lorazepam 2 Mg/Ml Sdv) 1 mg IV Q6H PRN PRN Reason: Nausea/Vomiting Last Admin: 09/12/20 00:17 Dose: 1 mg Documented by: Naloxone HCl (Naloxone 0.4 Mg/Ml Sdv) 0.1 mg IVPUSH Q2M PRN PRN Reason: Respiratory Distress Nicotine (Nicotine 14 Mg/24 Hr Patch) 14 mg TRDERM DAILY [facility] Last Admin: 09/12/20 10:53 Dose: Not Given Documented by: Nitroglycerin (Nitroglycerin 0.4 Mg Tab.Sl) 0.4 mg SL ASDIRECTED PRN PRN Reason: Chest Pain Ondansetron HCl (Ondansetron 4 Mg/2 Ml Sdv) 4 mg IV Q4H PRN PRN Reason: Nausea/Vomiting Last Admin: 09/12/20 11:10 Dose: 4 mg Documented by: Oxycodone/Acetaminophen (Acetaminophen/Oxycodone 325-10 Mg Tab) 1 tab PO Q6H PRN PRN Reason: Pain (moderate 4-6) Last Admin: 09/10/20 05:13 Dose: 1 tab Documented by: Paroxetine HCl (Paroxetine 20 Mg Tab) 40 mg PO DAILY [facility] Last Admin: 09/12/20 10:56 Dose: 40 mg Documented by: Scopolamine (Scopolamine 1.5 Mg Transdermal Patch) 1.5 mg TRDERM Q72H PRN PRN Reason: Nausea/Vomiting Last Admin: 09/12/20 00:39 Dose: 1.5 mg Documented by: Sodium Chloride (Sodium Chloride 0.9% 10 Ml Syringe) 10 ml FLUSH ASDIRECTED PRN PRN Reason: Keep Vein Open Last Admin: 09/09/20 00:58 Dose: 10 ml Documented by: Discontinued Medications Amlodipine Besylate (Amlodipine 5 Mg Tab) 10 mg PO DAILY [facility] Last Admin: 09/09/20 10:45 Dose: 10 mg Documented by: Dexamethasone (Dexamethasone 4 Mg/Ml Sdv) 4 mg IVPUSH ONETIME ONE Stop: 09/12/20 05:24 Last Admin: 09/12/20 05:48 Dose: 4 mg Documented by: Dexamethasone (Dexamethasone 4 Mg/Ml Sdv) Confirm Administered Dose 4 mg .ROUTE .STK-MED ONE Stop: 09/12/20 05:32 Last Admin: 09/12/20 05:48 Dose: Not Given Documented by: Diphenhydramine HCl (Diphenhydramine 50 Mg/Ml Sdv) 25 mg IVPUSH Q4H PRN PRN Reason: Itching Fentanyl (Fentanyl 100 Mcg/2 Ml Sdv) Confirm Administered Dose 100 mcg .ROUTE .STK-MED ONE Stop: 09/09/20 07:16 Furosemide (Furosemide 40 Mg/4 Ml Vial) 40 mg IVPUSH NOW ONE Stop: 09/12/20 15:01 Last Admin: 09/12/20 15:54 Dose: 40 mg Documented by: Hydromorphone HCl (Hydromorphone 0.5 Mg/0.5 Ml Syringe) 0.5 mg IVPUSH ONETIME ONE Stop: 09/09/20 00:53 Last Admin: 09/09/20 00:57 Dose: 0.5 mg Documented by: Hydromorphone HCl (Hydromorphone 1 Mg/Ml Syringe) 1 mg IVPUSH ONETIME ONE Stop: 09/09/20 04:15 Last Admin: 09/09/20 04:55 Dose: 1 mg Documented by: Hydromorphone HCl (Hydromorphone 1 Mg/Ml Syringe) 1 mg IVPUSH Q2H PRN PRN Reason: Pain Stop: 09/11/20 11:30 Last Admin: 09/11/20 08:01 Dose: 1 mg Documented by: Hydromorphone HCl (Hydromorphone 1 Mg/Ml Syringe) Confirm Administered Dose 1 mg .ROUTE .STK-MED ONE Stop: 09/10/20 10:57 Last Admin: 09/10/20 11:02 Dose: Not Given Documented by: Sodium Chloride (Normal Saline) 1,000 mls @ 999 mls/hr IV .BOLUS ONE Stop: 09/09/20 01:39 Last Admin: 09/09/20 00:49 Dose: 999 mls/hr Documented by: Sodium Chloride (Normal Saline) 100 mls @ 3 mls/sec IV ASDIRECTED STA Stop: 09/09/20 01:08 Last Admin: 09/09/20 01:15 Dose: 3 mls/sec Documented by: Potassium Chloride 20 meq/ (Premix) 100 mls @ 50 mls/hr IV ONETIME ONE Stop: 09/09/20 03:33 Last Admin: 09/09/20 02:04 Dose: 50 mls/hr Documented by: Sodium Chloride (Normal Saline) 1,000 mls @ 150 mls/hr IV ASDIRECTED [facility] Last Admin: 09/09/20 11:18 Dose: 150 mls/hr Documented by: Pantoprazole Sodium 80 mg/ (Sodium Chloride) 100 mls @ 200 mls/hr IV .BOLUS [facility] Last Admin: 09/09/20 04:48 Dose: 200 mls/hr Documented by: Potassium Chloride 20 meq/ (Premix) 100 mls @ 50 mls/hr IV ONETIME ONE Stop: 09/09/20 04:15 Last Admin: 09/09/20 05:29 Dose: 50 mls/hr Documented by: Lactated Ringer's (Ringers, Lactated) Confirm Administered Dose 1,000 mls @ as directed .ROUTE .STK-MED ONE Stop: 09/09/20 07:53 Sodium Chloride (Normal Saline) 1,000 mls @ 100 mls/hr IV ASDIRECTED [facility] Last Admin: 09/10/20 05:13 Dose: 100 mls/hr Documented by: Sodium Chloride (Normal Saline) 1,000 mls @ 125 mls/hr IV ASDIRECTED [facility] Last Admin: 09/12/20 10:00 Dose: 125 mls/hr Documented by: Ciprofloxacin/Dextrose 400 mg/ (Premix) 200 mls @ 200 mls/hr IV Q12H [facility] Last Admin: 09/12/20 10:54 Dose: 200 mls/hr Documented by: Metronidazole 500 mg/ Premix 100 mls @ 100 mls/hr IV Q8H [facility] Last Admin: 09/12/20 13:19 Dose: 100 mls/hr Documented by: Sodium Chloride (Normal Saline) 500 mls @ 500 mls/hr IV ONETIME ONE Stop: 09/11/20 18:29 Last Admin: 09/11/20 17:49 Dose: 500 mls/hr Documented by: Sodium Chloride (Normal Saline) 1,000 mls @ 999 mls/hr IV .BOLUS ONE Stop: 09/12/20 06:23 Last Admin: 09/12/20 05:48 Dose: 999 mls/hr Documented by: Sodium Chloride (Normal Saline) 90 mls @ 3.5 mls/sec IV ASDIRECTED [facility] Stop: 09/12/20 15:01 Last Admin: 09/12/20 15:26 Dose: 3.5 mls/sec Documented by: Iopamidol (Iopamidol 612 Mg/Ml 100 Ml Bottle) 100 ml IV . DIRECTED STA Stop: 09/09/20 01:08 Last Admin: 09/09/20 01:15 Dose: 100 ml Documented by: Iopamidol (Iopamidol 755 Mg/Ml 100 Ml Bottle) 85 ml IV . DIRECTED [facility] Stop: 09/12/20 15:01 Last Admin: 09/12/20 15:26 Dose: 85 ml Documented by: Lidocaine HCl (Lidocaine 1% 5 Ml Sdv) 2 ml INJECT ONETIME ONE Stop: 09/09/20 01:37 Last Admin: 09/09/20 02:04 Dose: 2 ml Documented by: Lidocaine HCl (Lidocaine 1% 5 Ml Sdv) Confirm Administered Dose 5 ml .ROUTE .STK-MED ONE Stop: 09/09/20 04:14 Last Admin: 09/09/20 05:29 Dose: 5 ml Documented by: Lorazepam (Lorazepam 2 Mg/Ml Sdv) Confirm Administered Dose 2 mg .ROUTE .STK-MED ONE Stop: 09/09/20 05:47 Last Admin: 09/09/20 05:54 Dose: Not Given Documented by: Midazolam HCl (Midazolam 1 Mg/Ml 2 Ml Sdv) Confirm Administered Dose 2 mg .ROUTE .STK-MED ONE Stop: 09/09/20 07:16 Miscellaneous Information (Remove Patch) 1 ea TRDERM Q24H [facility] Morphine Sulfate (Morphine 2 Mg/Ml Syringe) 2 mg IVPUSH Q2H PRN PRN Reason: Pain (severe 7-10) Last Admin: 09/09/20 11:16 Dose: 2 mg Documented by: Ondansetron HCl (Ondansetron 4 Mg/2 Ml Sdv) 4 mg IVPUSH ONETIME ONE Stop: 09/09/20 00:40 Last Admin: 09/09/20 00:55 Dose: 4 mg Documented by: Pantoprazole Sodium (Pantoprazole 40 Mg Vial) 40 mg IV Q12H [facility] Last Admin: 09/09/20 13:30 Dose: 40 mg Documented by: Propofol (Propofol 200 Mg/20 Ml Sdv) Confirm Administered Dose 200 mg .ROUTE .STK-MED ONE Stop: 09/09/20 07:16 Propofol (Propofol 200 Mg/20 Ml Sdv) Confirm Administered Dose 200 mg .ROUTE .STK-MED ONE Stop: 09/09/20 07:47 Sodium Chloride (Sodium Chloride 0.9% 10 Ml Syringe) 10 ml FLUSH ONETIME ONE Stop: 09/12/20 14:59 Last Admin: 09/12/20 15:26 Dose: 10 ml Documented by: - Exam Quality Assessment: Supplemental Oxygen, DVT Prophylaxis General: Alert, Oriented, Cooperative, Moderate Distress Lungs: Clear to Auscultation, Normal Respiratory Effort, Decreased Breath Sounds. No: Rales, Rhonchi, Wheezing Cardiovascular: Regular Rate, Regular Rhythm, No Murmurs GI/Abdominal Exam: Soft, No Organomegaly, Tender. No: Distended, Guarding, Rigid, Rebound Extremities: Non-Tender, Pedal Edema - Patient Data Lab Results Last 24 hrs: Laboratory Results - last 24 hr 09/12/20 09/12/20 Range/Units 05:55 05:55 WBC 9.0 (4.5-11.0) K/uL RBC 3.71 L (4.30-5.90) M/uL Hgb 11.1 L (12.0-15.0) g/dL Hct 35.5 L (40.0-54.0) % MCV 96 (80-98) fL MCH 30 (27-31) pg MCHC 31 L (32-36) % Plt Count 221 (150-400) K/uL Sodium 136 L (140-148) mmol/L Potassium 5.2 (3.6-5.2) mmol/L Chloride 104 (100-108) mmol/L Carbon Dioxide 19 L (21-32) mmol/L Anion Gap 18.2 H (5.0-14.0) mmol/L BUN 26 H D (7-18) mg/dL Creatinine 1.5 H (0.8-1.3) mg/dL Est Cr Clr Drug Dosing 59.26 mL/min Estimated GFR (MDRD) 49 L (>60) Glucose 118 H (74-106) mg/dL Calcium 8.1 L (8.5-10.1) mg/dL Total Bilirubin 0.7 (0.2-1.0) mg/dL AST 32 (15-37) U/L ALT 40 (12-78) U/L Alkaline Phosphatase 122 H (46-116) U/L Total Protein 6.0 L (6.4-8.2) g/dL Albumin 2.8 L (3.4-5.0) g/dL Globulin 3.2 (2.3-3.5) g/dL Albumin/Globulin Ratio 0.9 L (1.2-2.2) Result Diagrams: 09/12/20 05:55 09/12/20 05:55 Sepsis Event Note - Evaluation Sepsis Screening Result: No Definite Risk - Focused Exam Vital Signs: Vital Signs Temp Pulse Resp BP Pulse Ox 09/12/20 15:56 97.7 F 90 16 106/51 L 94 L 09/12/20 11:00 97.7 F 90 18 112/47 L 88 L 09/12/20 07:19 92 L 09/12/20 07:00 97.4 F 86 18 127/52 L 88 L - Problem List Review Problem List Initiated/Reviewed/Updated: Yes - My Orders Last 24 Hours: My Active Orders 09/12/20 Lunch Clear Liquid Diet [DIET] 09/12/20 12:09 Echo Comp wo Cont [US] Urgent 09/12/20 15:00 Sodium Chloride 0.9% [Normal Saline] 1,000 ml IV ASDIRECTED 09/12/20 16:30 Levofloxacin/Dextrose 5%-Water [Levaquin in D5W 750 MG/150 ML] 750 mg Premix Bag 1 bag IV Q24H Meropenem [Merrem] 1 gm Sodium Chloride 0.9% [Normal Saline] 100 ml IV Q8H 09/13/20 05:00 CBC WITH AUTO DIFF [HEME] Timed COMPREHENSIVE METABOLIC PN,CMP [CHEM] Timed MAGNESIUM [CHEM] Timed 09/13/20 Breakfast NPO After Midnight [Nothing per Oral After Midnight Diet] [DIET] - Plan Plan:: ASSESSMENT AND PLAN Dysphasia-seems to be only with solid foods and thicker liquids. Did better with regular foods yesterday. Work-up has been negative. -Clear liquid diet -Pain and nausea management -Surgical consultation in the morning or if condition deteriorates ABDOMINAL PAIN AND NAUSEA-evaluation up until today had been unremarkable. HIDA scan performed today does show evidence of significant gallbladder dysfunction, use of Ensure did reproduce symptoms -Meropenem 1 g every 8 hours -Consult Dr. Roberts for surgical opinion -Symptomatic management of pain and nausea Shortness of breath and hypoxia-there does appear to be an element of fluid overload. Also evidence of possible bilateral infiltrates consistent with infection. Echocardiogram shows hyperdynamic left ventricular function with MR and TR. -Decrease IV fluids to 50 cc/h -Furosemide 40 mg IV given this afternoon -Blood cultures pending -Expand IV antibiotic coverage with levofloxacin Hypokalemia -improved with supplementation. -recheck Potassium in am Coronary Artery Disease- had a CO with stent placed 3 years ago, has blood clotting disorder, no history of PE. -Hold apixaban in case surgery is indicated Chronic Back pain and arthritis-stable. Probably had some narcotic withdrawal yesterday. Symptoms are improving with restarting his usual home medications. -pain medication ordered -Bowel regimen to avoid constipation Tobacco dependence-interested in nicotine patch. -Encourage cessation Maintenance issues - - DVT prophylaxis - SCD - GI prophylaxis -PPI - Nutrition -advance diet as tolerated, n.p.o. after midnight Disposition -I would anticipate discharge home after the hospital stay Primary care physician - Dr. Stock,
[2020-09-12] MEDS: Meropenem 1 GM in Sodium Chloride 0.9% 100 ML IV SCH (16:55)
[2020-09-12] MEDS: HYDROmorphone/Normal Saline 15 MG/30 ML PCA IV PRN (16:57)
[2020-09-12] MEDS: Levofloxacin/Dextrose 5%-Water 750 MG in Premix Bag 1 BAG IV SCH (17:25)
[2020-09-13] MEDS: Meropenem 1 GM in Sodium Chloride 0.9% 100 ML IV SCH ×2 (01:25→09:29)
[2020-09-13] MEDS: LORazepam 2 MG/ML SDV IV PRN (06:24)
[2020-09-13] MEDS: Ondansetron 4 MG/2 ML SDV IV PRN (07:31)
[2020-09-13] MEDS ORDERED: Furosemide 40 MG/4 ML VIAL IVPUSH ONE (09:00)
[2020-09-13] MEDS: Nicotine 14 MG/24 Hr Patch TRDERM SCH (09:25)
[2020-09-13] MEDS: PARoxetine 20 MG Tab PO SCH (09:26)
--- NOTE | 2020-09-13 09:45 | CONS ---
DATE OF SERVICE: 09/13/2020 REFERRING PHYSICIAN: CONSULTING PHYSICIAN: Julissa Randolph PA-C HISTORY OF PRESENT ILLNESS: Reji Browning is a 54-year-old male, who Gadiel Callahan MD, asked on the surgery department to consult. eRji was admitted to [facility] after evaluation in the emergency department on 09/09/2020. Reji came into the emergency department. He was unable to swallow for 4 days, had body aches, marked increase in thirst, chest pain, and overall not feeling well. He states that he was feeling his normal self until he discontinued the Endocet (Percocet). He was taking it he said for a long time for chronic pain. He had stopped the Endocet because he thought it was causing constipation. He reports that he has been having abdominal pain on and off for 2 to 3 weeks with decreased appetite, but he has not had the inability to swallow until he came into the emergency room. The pain is achy, sharp, severe, crampy around the periumbilical area. This morning, he did have a 200 mL emesis. Pain on a pain scale of 1 to 10. Right now, Reji reports at an 8/10. He is using his STOCKROOM HELPER. REVIEW OF SYSTEMS: CONSTITUTIONAL: States he feels weak, tired, decreased appetite, weight loss. HEENT: Negative for any infection. Reports having dentures. No hearing aids. Remainder of HEENT negative. NECK: Negative. No pain or lymphadenopathy. HEART: Fast irregular heart beat. LUNGS: Reports shortness of breath. GI: Abdominal pain. No appetite. Diarrhea for the past few days, difficulty swallowing, nausea, and has been vomiting a yellow emesis and distended. : Negative. MUSCULOSKELETAL: Back pain and he states all his muscles hurt, feel crampy, painful, and weak. PSYCHIATRIC: Reports an increase in anxiety. NEURO: Reports weakness and is afraid he will fall. HEMATOLOGIC/LYMPHATIC: Reports a clotting disorder. Has been on Eliquis 5 mg b.i.d. PAST MEDICAL HISTORY: 1. High cholesterol. 2. Has had myocardial infarction and has stents. 3. Arthritis and chronic back pain. 4. Anticoagulation therapy. 5. Had skin cancer, right arm, several years ago. PAST SURGICAL HISTORY: 1. Tonsillectomy. 2. Inguinal hernia. 3. Left rotator cuff repair, right rotator cuff injury, but there was no surgery. CURRENT MEDICATIONS: 1. Eliquis 5 mg p.o. b.i.d. 2. Aspirin 81 mg p.o. daily. 3. Zyrtec 10 mg p.o. daily. 4. Nitrostat 0.4 mg sublingual. 5. Paxil 40 mg p.o. daily. 6. Potassium chloride 20 mEq p.o. daily. 7. Norvasc 10 mg p.o. daily. 8. Lipitor 80 mg p.o. at bedtime. 9. Finasteride 5 mg p.o. daily. 10.Oxycodone/acetaminophen (Endocet 5/325 two tablets every 8 hours p.r.n.). ALLERGIES: TO BEE VENOM, WELLBUTRIN, CEFADROXIL (DURICEF AND PENICILLIN G). FAMILY HISTORY: Negative for any heart, lung, diabetes, CVA, or cancer. SOCIAL HISTORY: . Lives with ex-, Kendra, in [place], [place]. Occupation, disabled. Children 3, ages 35, 32, and 27. Tobacco use half a pack daily for 40 years. Caffeine, drinks energy drinks and soda. Recreational drugs, none. PHYSICAL EXAMINATION: GENERAL: Reji Browning is a pleasant 54-year-old male. VITAL SIGNS: Height 5 feet 11 inches, weight is 191 pounds. TPR is 96.6, 107, 20, blood pressure 125/45, oximetry is 88% on no oxygen and 96% to 94% on oxygen. HEENT: Negative. NECK: Supple. HEART: Regular rate and rhythm. LUNGS: Clear. ABDOMEN: Soft, distended. Pain in the periumbilical area. BACK: Negative. EXTREMITIES: Negative. NEURO: Cranial nerves 2-12 intact. PSYCHIATRIC: Mood and affect appropriate. ASSESSMENT: 1. Dysphagia. EGD 09/09/2020. Balta Ortiz MD. 2. Hypokalemia, resolved. 3. Abdominal pain, periumbilical. 4. Ejection fraction of gallbladder 11%. 5. Coronary artery disease. 6. Chronic back pain. 7. Chronic anticoagulation therapy. PLAN: 1. We will check a COVID test this morning. 2. We will check with Dr. Callahan if he would need to restart his Eliquis or heparin. To call if any further vomiting. May need NG. 3. Will continue to evaluate and monitor. Dr. Gadiel Callahan to assist in the patient's condition, where he would be stable prior to surgery if indicated. We will evaluate p.r.n. or in a.m. Thank you for this consultation. Julissa Randolph PA-C /[id number]
[2020-09-13] MEDS ORDERED: Ondansetron 4 MG/2 ML SDV ONE (09:58)
[2020-09-13] MEDS ORDERED: Rocuronium 50 MG/5 ML Vial ONE (09:58)
[2020-09-13] MEDS ORDERED: Glycopyrrolate 0.2 MG/ML 5 ML MDV ONE (09:58)
[2020-09-13] MEDS ORDERED: Dexamethasone 4 MG/ML SDV ONE (09:58)
[2020-09-13] MEDS ORDERED: Propofol 200 MG/20 ML SDV ONE (09:58)
[2020-09-13] MEDS ORDERED: Neostigmine Methylsulfate 1 MG/ML 5 ML Syringe ONE (09:58)
[2020-09-13] MEDS ORDERED: fentaNYL 250 MCG/5 ML SDV ONE (09:58)
[2020-09-13] MEDS ORDERED: Succinylcholine 200 MG/10 ML MDV ONE (09:58)
[2020-09-13] MEDS ORDERED: Ketamine 500 MG/5 ML MDV IV SCH (10:00)
[2020-09-13] MEDS ORDERED: Ketamine 50 MG in Sodium Chloride 0.9% 49.5 ML IV SCH (10:00)
[2020-09-13] MEDS ORDERED: Bupivacaine 0.5%/EPINEPHrine 1:200,000 50 ML MDV ONE (10:07)
[2020-09-13] MEDS ORDERED: HYDROmorphone/Normal Saline 15 MG/30 ML PCA IV PRN (10:17)
[2020-09-13] MEDS ORDERED: Naloxone 0.4 MG/ML SDV IV PRN (11:00)
[2020-09-13] MEDS ORDERED: Sugammadex Sodium 200 MG/2 ML VIAL ONE (11:36)
[2020-09-13] MEDS: Dextrose 5%-Lactated Ringers 1,000 ML IV SCH (13:00)
[2020-09-13] MEDS ORDERED: Acetaminophen/HYDROcodone 325-5 MG Tab PO PRN (14:00)
[2020-09-13] MEDS ORDERED: Albuterol/Ipratropium 3.0-0.5 MG/3 ML Neb Soln INH PRN (14:00)
[2020-09-13] MEDS: Albuterol/Ipratropium 3.0-0.5 MG/3 ML Neb Soln INH SCH ×2 (14:16→21:48)
[2020-09-13] MEDS: Meropenem 500 MG in Sodium Chloride 0.9% 50 ML IV SCH ×2 (16:01→21:22)
[2020-09-13] MEDS: Pantoprazole 40 MG Vial IVPUSH SCH (16:01)
[2020-09-13] MEDS: SCOPOLAMINE PATCH CHECK TOP SCH (16:04)
[2020-09-13] MEDS: Levofloxacin/Dextrose 5%-Water 750 MG in Premix Bag 1 BAG IV SCH (16:43)
--- NOTE | 2020-09-13 17:32 | PCM.PN ---
- General Info Date of Service: 09/13/20 Subjective Update: Mr. Browning underwent laparoscopic cholecystectomy this morning by Dr. Roberts. He has experienced some ongoing respiratory compromise since surgery and is currently managed with BiPAP. Vital signs have otherwise remained stable and he has been afebrile. Functional Status: Reports: Urinating - Review of Systems General: Reports: Weakness, Fatigue. Denies: Fever, Chills Pulmonary: Reports: Shortness of Breath, Cough. Denies: Sputum, Hemoptysis, Wheezing Cardiovascular: Reports: Dyspnea on Exertion. Denies: Chest Pain, Palpitations, Orthopnea, PND, Edema, Lightheadedness Gastrointestinal: Reports: Abdominal Pain, Nausea. Denies: Difficulty Swallowing, Hematochezia, Melena, Vomiting Genitourinary: Reports: No Symptoms - Patient Data Vitals - Most Recent: Last Vital Signs Temp 98.2 F 09/13/20 17:00 Pulse 85 09/13/20 17:00 Resp 22 H 09/13/20 17:00 BP 120/55 L 09/13/20 17:00 Pulse Ox 95 09/13/20 17:00 Weight - Most Recent: 191 lb I&O - Last 24 Hours: Intake & Output 09/13/20 09/13/20 09/13/20 06:59 14:59 22:59 Intake Total 120 350 9200 Output Total 700 450 Balance -81 -350 1165 Lab Results Last 24 Hours: Laboratory Results - last 24 hr 09/13/20 09/13/20 Range/Units 04:20 04:20 WBC 11.6 H (4.5-11.0) K/uL RBC 3.70 L (4.30-5.90) M/uL Hgb 11.3 L (12.0-15.0) g/dL Hct 35.1 L (40.0-54.0) % MCV 95 (80-98) fL MCH 31 (27-31) pg MCHC 32 (32-36) % Plt Count 270 (150-400) K/uL Neut % (Auto) 73 H (36-66) % Lymph % (Auto) 16 L (24-44) % Blaine % (Auto) 10 H (2-6) % Eos % (Auto) 0 L (2-4) % Baso % (Auto) 0 (0-1) % Sodium 139 L (140-148) mmol/L Potassium 4.9 (3.6-5.2) mmol/L Chloride 105 (100-108) mmol/L Carbon Dioxide 19 L (21-32) mmol/L Anion Gap 19.9 H (5.0-14.0) mmol/L BUN 32 H (7-18) mg/dL Creatinine 1.4 H (0.8-1.3) mg/dL Est Cr Clr Drug Dosing 63.50 mL/min Estimated GFR (MDRD) 53 L (>60) Glucose 118 H (74-106) mg/dL Calcium 8.9 (8.5-10.1) mg/dL Magnesium 2.4 (1.8-2.4) mg/dL Total Bilirubin 0.6 (0.2-1.0) mg/dL AST 87 H D (15-37) U/L ALT 36 (12-78) U/L Alkaline Phosphatase 123 H (46-116) U/L Total Protein 6.4 (6.4-8.2) g/dL Albumin 3.0 L (3.4-5.0) g/dL Globulin 3.4 (2.3-3.5) g/dL Albumin/Globulin Ratio 0.9 L (1.2-2.2) [facility] Results Last 24 Hours: Microbiology 09/13/20 11:30 Gram Stain - Final Gallbladder Med Orders - Current: Current Medications Albuterol/Ipratropium (Albuterol/Ipratropium 3.0-0.5 Mg/3 Ml Neb Soln) 3 ml INH QIDRT [facility] Last Admin: 09/13/20 14:16 Dose: 3 ml Documented by: Albuterol/Ipratropium (Albuterol/Ipratropium 3.0-0.5 Mg/3 Ml Neb Soln) 3 ml INH ASDIRECTED PRN PRN Reason: BREATHING Amlodipine Besylate (Amlodipine 5 Mg Tab) 10 mg PO DAILY [facility] Apixaban (Apixaban 5 Mg Tab) 5 mg PO BID [facility] Aspirin (Aspirin 81 Mg Tab.Ec) 81 mg PO DAILY [facility] Cetirizine HCl (Cetirizine 10 Mg Tab) 10 mg PO DAILY [facility] Docusate Sodium (Docusate Sodium 100 Mg Cap) 100 mg PO BID [facility] Finasteride (Finasteride 5 Mg Tab) 5 mg PO BEDTIME [facility] Hydromorphone HCl (Hydromorphone/Normal Saline 15 Mg/30 Ml Measurement Advisor) 0 mg IV ASDIRECTED PRN; Protocol PRN Reason: AML ANALYST PAIN CONTROL Levofloxacin/Dextrose 750 mg/ (Premix) 150 mls @ 100 mls/hr IV Q24H [facility] Last Admin: 09/13/20 16:43 Dose: 100 mls/hr Documented by: Dextrose/Lactated Ringer's (Dextrose 5%-Lactated Ringers) 1,000 mls @ 100 mls/hr IV ASDIRECTED [facility] Last Admin: 09/13/20 13:00 Dose: 100 mls/hr Documented by: Meropenem 500 mg/ Sodium (Chloride) 50 mls @ 100 mls/hr IV Q6HR [facility] Last Admin: 09/13/20 16:01 Dose: 100 mls/hr Documented by: Miscellaneous Information (Remove Nicotine Patch) 1 ea TRDERM BEDTIME [facility] Naloxone HCl (Naloxone 0.4 Mg/Ml Sdv) 0.1 mg IV ASDIRECTED PRN PRN Reason: decreased respiratory rate Nicotine (Nicotine 14 Mg/24 Hr Patch) 14 mg TRDERM DAILY [facility] Last Admin: 09/13/20 09:25 Dose: Not Given Documented by: Nitroglycerin (Nitroglycerin 0.4 Mg Tab.Sl) 0.4 mg SL ASDIRECTED PRN PRN Reason: Chest Pain Scopolamine Patch (Check) 1 each TOP DAILY [facility] Last Admin: 09/13/20 16:04 Dose: 1 each Documented by: Ondansetron HCl (Ondansetron 4 Mg/2 Ml Sdv) 4 mg IV Q4H PRN PRN Reason: Nausea/Vomiting Last Admin: 09/13/20 07:31 Dose: 4 mg Documented by: Pantoprazole Sodium (Pantoprazole 40 Mg Vial) 40 mg IVPUSH Q24H [facility] Last Admin: 09/13/20 16:01 Dose: 40 mg Documented by: Paroxetine HCl (Paroxetine 20 Mg Tab) 40 mg PO DAILY [facility] Last Admin: 09/13/20 09:26 Dose: 40 mg Documented by: Potassium Chloride (Potassium Chloride 20 Meq Tab.Er) 40 meq PO DAILY [facility] Scopolamine (Scopolamine 1.5 Mg Transdermal Patch) 1.5 mg TRDERM Q72H PRN PRN Reason: Nausea/Vomiting Stop: 09/14/20 10:00 Last Admin: 09/12/20 00:39 Dose: 1.5 mg Documented by: Discontinued Medications Albuterol (Albuterol 0.083% 2.5 Mg/3 Ml Neb Soln) 2.5 mg NEB Q4H PRN PRN Reason: Shortness Of Breath/wheezing Albuterol/Ipratropium (Albuterol/Ipratropium 3.0-0.5 Mg/3 Ml Neb Soln) 3 ml NEB QID PRN PRN Reason: Shortness Of Breath/wheezing Amlodipine Besylate (Amlodipine 5 Mg Tab) 10 mg PO DAILY [facility] Last Admin: 09/09/20 10:45 Dose: 10 mg Documented by: Bisacodyl (Bisacodyl 5 Mg Tab) 5 mg PO DAILY PRN PRN Reason: Constipation Bupivacaine HCl/Epinephrine Bitart (Bupivacaine 0.5%/Epinephrine 1:200,000 50 Ml Mdv) Confirm Administered Dose 50 ml .ROUTE .STK-MED ONE Stop: 09/13/20 10:08 Last Admin: 09/13/20 11:23 Dose: 20 ml Documented by: Ropivacaine 43 ml/Dexamethasone 8 mg/Epinephrine HCl 0.4 mg/ Sodium Chloride 34.6 ml 0 ml NERVRT ASDIRECTED [facility] Last Admin: 09/13/20 11:06 Dose: 80 syringe Documented by: Dexamethasone (Dexamethasone 4 Mg/Ml Sdv) 4 mg IVPUSH ONETIME ONE Stop: 09/12/20 05:24 Last Admin: 09/12/20 05:48 Dose: 4 mg Documented by: Dexamethasone (Dexamethasone 4 Mg/Ml Sdv) Confirm Administered Dose 4 mg .ROUTE .STK-MED ONE Stop: 09/12/20 05:32 Last Admin: 09/12/20 05:48 Dose: Not Given Documented by: Dexamethasone (Dexamethasone 4 Mg/Ml Sdv) Confirm Administered Dose 4 mg .ROUTE .STK-MED ONE Stop: 09/13/20 09:59 Diphenhydramine HCl (Diphenhydramine 50 Mg/Ml Sdv) 25 mg IVPUSH Q4H PRN PRN Reason: Itching Diphenhydramine HCl (Diphenhydramine 50 Mg/Ml Sdv) 25 - 50 mg IVPUSH Q4H PRN PRN Reason: Itching Docusate Sodium (Docusate Sodium 100 Mg Cap) 100 mg PO BID PRN PRN Reason: Constipation Fentanyl (Fentanyl 100 Mcg/2 Ml Sdv) Confirm Administered Dose 100 mcg .ROUTE .STK-MED ONE Stop: 09/09/20 07:16 Fentanyl (Fentanyl 250 Mcg/5 Ml Sdv) Confirm Administered Dose 250 mcg .ROUTE .S TK-MED ONE Stop: 09/13/20 09:59 Furosemide (Furosemide 40 Mg/4 Ml Vial) 40 mg IVPUSH NOW ONE Stop: 09/12/20 15:01 Last Admin: 09/12/20 15:54 Dose: 40 mg Documented by: Furosemide (Furosemide 40 Mg/4 Ml Vial) 40 mg IVPUSH NOW ONE Stop: 09/13/20 09:01 Last Admin: 09/13/20 09:28 Dose: 40 mg Documented by: Glycopyrrolate (Glycopyrrolate 0.2 Mg/Ml 5 Ml Mdv) Confirm Administered Dose 1 mg .ROUTE .STK-MED ONE Stop: 09/13/20 09:59 Hydromorphone HCl (Hydromorphone 0.5 Mg/0.5 Ml Syringe) 0.5 mg IVPUSH ONETIME ONE Stop: 09/09/20 00:53 Last Admin: 09/09/20 00:57 Dose: 0.5 mg Documented by: Hydromorphone HCl (Hydromorphone 1 Mg/Ml Syringe) 1 mg IVPUSH ONETIME ONE Stop: 09/09/20 04:15 Last Admin: 09/09/20 04:55 Dose: 1 mg Documented by: Hydromorphone HCl (Hydromorphone 1 Mg/Ml Syringe) 1 mg IVPUSH Q2H PRN PRN Reason: Pain Stop: 09/11/20 11:30 Last Admin: 09/11/20 08:01 Dose: 1 mg Documented by: Hydromorphone HCl (Hydromorphone 1 Mg/Ml Syringe) Confirm Administered Dose 1 mg .ROUTE .STK-MED ONE Stop: 09/10/20 10:57 Last Admin: 09/10/20 11:02 Dose: Not Given Documented by: Hydromorphone HCl (Hydromorphone/Normal Saline 15 Mg/30 Ml Measurement Advisor) 0 mg IV ASDIRECTED PRN; Protocol PRN Reason: Pain Last Admin: 09/12/20 16:57 Dose: 15 mg Documented by: Sodium Chloride (Normal Saline) 1,000 mls @ 999 mls/hr IV .BOLUS ONE Stop: 09/09/20 01:39 Last Admin: 09/09/20 00:49 Dose: 999 mls/hr Documented by: Sodium Chloride (Normal Saline) 100 mls @ 3 mls/sec IV ASDIRECTED STA Stop: 09/09/20 01:08 Last Admin: 09/09/20 01:15 Dose: 3 mls/sec Documented by: Potassium Chloride 20 meq/ (Premix) 100 mls @ 50 mls/hr IV ONETIME ONE Stop: 09/09/20 03:33 Last Admin: 09/09/20 02:04 Dose: 50 mls/hr Documented by: Sodium Chloride (Normal Saline) 1,000 mls @ 150 mls/hr IV ASDIRECTED [facility] Last Admin: 09/09/20 11:18 Dose: 150 mls/hr Documented by: Pantoprazole Sodium 80 mg/ (Sodium Chloride) 100 mls @ 200 mls/hr IV .BOLUS [facility]IL Last Admin: 09/09/20 04:48 Dose: 200 mls/hr Documented by: Potassium Chloride 20 meq/ (Premix) 100 mls @ 50 mls/hr IV ONETIME ONE Stop: 09/09/20 04:15 Last Admin: 09/09/20 05:29 Dose: 50 mls/hr Documented by: Promethazine HCl 25 mg/ Sodium (Chloride) 51 mls @ 200 mls/hr IV Q6H PRN PRN Reason: Nausea/Vomiting Last Admin: 09/12/20 04:51 Dose: 200 mls/hr Documented by: Lactated Ringer's (Ringers, Lactated) Confirm Administered Dose 1,000 mls @ as directed .ROUTE .STK-MED ONE Stop: 09/09/20 07:53 Sodium Chloride (Normal Saline) 1,000 mls @ 100 mls/hr IV ASDIRECTED [facility] Last Admin: 09/10/20 05:13 Dose: 100 mls/hr Documented by: Sodium Chloride (Normal Saline) 1,000 mls @ 125 mls/hr IV ASDIRECTED [facility] Last Admin: 09/12/20 10:00 Dose: 125 mls/hr Documented by: Ciprofloxacin/Dextrose 400 mg/ (Premix) 200 mls @ 200 mls/hr IV Q12H [facility] Last Admin: 09/12/20 10:54 Dose: 200 mls/hr Documented by: Metronidazole 500 mg/ Premix 100 mls @ 100 mls/hr IV Q8H [facility] Last Admin: 09/12/20 13:19 Dose: 100 mls/hr Documented by: Sodium Chloride (Normal Saline) 500 mls @ 500 mls/hr IV ONETIME ONE Stop: 09/11/20 18:29 Last Admin: 09/11/20 17:49 Dose: 500 mls/hr Documented by: Sodium Chloride (Normal Saline) 1,000 mls @ 999 mls/hr IV .BOLUS ONE Stop: 09/12/20 06:23 Last Admin: 09/12/20 05:48 Dose: 999 mls/hr Documented by: Sodium Chloride (Normal Saline) 1,000 mls @ 50 mls/hr IV ASDIRECTED [facility] Last Admin: 09/13/20 06:56 Dose: 50 mls/hr Documented by: Sodium Chloride (Normal Saline) 90 mls @ 3.5 mls/sec IV ASDIRECTED [facility] Stop: 09/12/20 15:01 Last Admin: 09/12/20 15:26 Dose: 3.5 mls/sec Documented by: Meropenem 1 gm/ Sodium (Chloride) 100 mls @ 200 mls/hr IV Q8H [facility] Last Admin: 09/13/20 09:29 Dose: 200 mls/hr Documented by: Ketamine HCl 50 mg/ Sodium (Chloride) 50 mls @ 22.59 mls/hr IV ASDIRECTED [facility] Iopamidol (Iopamidol 612 Mg/Ml 100 Ml Bottle) 100 ml IV . DIRECTED STA Stop: 09/09/20 01:08 Last Admin: 09/09/20 01:15 Dose: 100 ml Documented by: Iopamidol (Iopamidol 755 Mg/Ml 100 Ml Bottle) 85 ml IV . DIRECTED [facility] Stop: 09/12/20 15:01 Last Admin: 09/12/20 15:26 Dose: 85 ml Documented by: Ketamine HCl (Ketamine 500 Mg/5 Ml Mdv) 37 mg IV ASDIRECTED [facility] Lidocaine HCl (Lidocaine 1% 5 Ml Sdv) 2 ml INJECT ONETIME ONE Stop: 09/09/20 01:37 Last Admin: 09/09/20 02:04 Dose: 2 ml Documented by: Lidocaine HCl (Lidocaine 1% 5 Ml Sdv) Confirm Administered Dose 5 ml .ROUTE .STK-MED ONE Stop: 09/09/20 04:14 Last Admin: 09/09/20 05:29 Dose: 5 ml Documented by: Lorazepam (Lorazepam 2 Mg/Ml Sdv) 1 mg IV Q6H PRN PRN Reason: Nausea/Vomiting Last Admin: 09/13/20 06:24 Dose: 1 mg Documented by: Lorazepam (Lorazepam 2 Mg/Ml Sdv) Confirm Administered Dose 2 mg .ROUTE .STK-MED ONE Stop: 09/09/20 05:47 Last Admin: 09/09/20 05:54 Dose: Not Given Documented by: Midazolam HCl (Midazolam 1 Mg/Ml 2 Ml Sdv) Confirm Administered Dose 2 mg .ROUTE .STK-MED ONE Stop: 09/09/20 07:16 Miscellaneous Information (Remove Patch) 1 ea TRDERM Q24H [facility] Morphine Sulfate (Morphine 2 Mg/Ml Syringe) 2 mg IVPUSH Q2H PRN PRN Reason: Pain (severe 7-10) Last Admin: 09/09/20 11:16 Dose: 2 mg Documented by: Naloxone HCl (Naloxone 0.4 Mg/Ml Sdv) 0.1 mg IVPUSH Q2M PRN PRN Reason: Respiratory Distress Neostigmine Methylsulfate (Neostigmine Methylsulfate 1 Mg/Ml 5 Ml Syringe) Confirm Administered Dose 5 mg .ROUTE .STK-MED ONE Stop: 09/13/20 09:59 Ondansetron HCl (Ondansetron 4 Mg/2 Ml Sdv) 4 mg IVPUSH ONETIME ONE Stop: 09/09/20 00:40 Last Admin: 09/09/20 00:55 Dose: 4 mg Documented by: Ondansetron HCl (Ondansetron 4 Mg/2 Ml Sdv) Confirm Administered Dose 4 mg .ROUTE .STK-MED ONE Stop: 09/13/20 09:59 Oxycodone/Acetaminophen (Acetaminophen/Oxycodone 325-10 Mg Tab) 1 tab PO Q6H PRN PRN Reason: Pain (moderate 4-6) Last Admin: 09/10/20 05:13 Dose: 1 tab Documented by: Pantoprazole Sodium (Pantoprazole 40 Mg Vial) 40 mg IV Q12H [facility] Last Admin: 09/09/20 13:30 Dose: 40 mg Documented by: Propofol (Propofol 200 Mg/20 Ml Sdv) Confirm Administered Dose 200 mg .ROUTE .STK-MED ONE Stop: 09/09/20 07:16 Propofol (Propofol 200 Mg/20 Ml Sdv) Confirm Administered Dose 200 mg .ROUTE .STK-MED ONE Stop: 09/09/20 07:47 Propofol (Propofol 200 Mg/20 Ml Sdv) Confirm Administered Dose 200 mg .ROUTE .STK-MED ONE Stop: 09/13/20 09:59 Rocuronium Gaastra (Rocuronium 50 Mg/5 Ml Vial) Confirm Administered Dose 50 mg .ROUTE .STK-MED ONE Stop: 09/13/20 09:59 Sodium Chloride (Sodium Chloride 0.9% 10 Ml Syringe) 10 ml FLUSH ASDIRECTED PRN PRN Reason: Keep Vein Open Last Admin: 09/09/20 00:58 Dose: 10 ml Documented by: Sodium Chloride (Sodium Chloride 0.9% 10 Ml Syringe) 10 ml FLUSH ONETIME ONE Stop: 09/12/20 14:59 Last Admin: 09/12/20 15:26 Dose: 10 ml Documented by: Succinylcholine Chloride (Succinylcholine 200 Mg/10 Ml Mdv) Confirm Administered Dose 200 mg .ROUTE .STK-MED ONE Stop: 09/13/20 09:59 Sugammadex Sodium (Sugammadex Sodium 200 Mg/2 Ml Vial) Confirm Administered Dose 200 mg .ROUTE .STK-MED ONE Stop: 09/13/20 11:37 - Exam Quality Assessment: Supplemental Oxygen, DVT Prophylaxis General: Sedated, Lethargic Lungs: Clear to Auscultation, Normal Respiratory Effort, Decreased Breath Sounds. No: Crackles, Rales, Rhonchi, Wheezing Cardiovascular: Regular Rate, Regular Rhythm, No Murmurs GI/Abdominal Exam: Soft, No Organomegaly, Tender. No: Distended, Guarding, Rigid, Rebound Extremities: Non-Tender, Pedal Edema - Patient Data Lab Results Last 24 hrs: Laboratory Results - last 24 hr 09/13/20 09/13/20 Range/Units 04:20 04:20 WBC 11.6 H (4.5-11.0) K/uL RBC 3.70 L (4.30-5.90) M/uL Hgb 11.3 L (12.0-15.0) g/dL Hct 35.1 L (40.0-54.0) % MCV 95 (80-98) fL MCH 31 (27-31) pg MCHC 32 (32-36) % Plt Count 270 (150-400) K/uL Neut % (Auto) 73 H (36-66) % Lymph % (Auto) 16 L (24-44) % Blaine % (Auto) 10 H (2-6) % Eos % (Auto) 0 L (2-4) % Baso % (Auto) 0 (0-1) % Sodium 139 L (140-148) mmol/L Potassium 4.9 (3.6-5.2) mmol/L Chloride 105 (100-108) mmol/L Carbon Dioxide 19 L (21-32) mmol/L Anion Gap 19.9 H (5.0-14.0) mmol/L BUN 32 H (7-18) mg/dL Creatinine 1.4 H (0.8-1.3) mg/dL Est Cr Clr Drug Dosing 63.50 mL/min Estimated GFR (MDRD) 53 L (>60) Glucose 118 H (74-106) mg/dL Calcium 8.9 (8.5-10.1) mg/dL Magnesium 2.4 (1.8-2.4) mg/dL Total Bilirubin 0.6 (0.2-1.0) mg/dL AST 87 H D (15-37) U/L ALT 36 (12-78) U/L Alkaline Phosphatase 123 H (46-116) U/L Total Protein 6.4 (6.4-8.2) g/dL Albumin 3.0 L (3.4-5.0) g/dL Globulin 3.4 (2.3-3.5) g/dL Albumin/Globulin Ratio 0.9 L (1.2-2.2) Result Diagrams: 09/13/20 04:20 09/13/20 04:20 [facility]all Results Last 24 hrs: Microbiology 09/13/20 11:30 Gram Stain - Final Gallbladder Sepsis Event Note - Evaluation Sepsis Screening Result: No Definite Risk - Focused Exam Vital Signs: Vital Signs Temp Temp Pulse Resp BP BP Pulse Ox 09/13/20 17:00 98.2 F 85 22 H 120/55 L 95 09/13/20 16:00 98.3 F 90 19 119/55 L 95 09/13/20 14:30 94 18 113/54 L 96 09/13/20 14:16 98 09/13/20 14:00 98.3 F 95 16 114/54 L 96 09/13/20 13:31 91 14 115/54 L 95 09/13/20 13:28 90 15 115/54 L 90 L 09/13/20 13:00 88 16 109/54 L 96 09/13/20 12:45 89 17 107/50 L 89 L 09/13/20 12:15 96.4 F L 87 20 111/58 L 95 09/13/20 12:10 87 20 113/58 L 94 L 09/13/20 12:06 87 20 105/55 L 94 L 09/13/20 12:01 96.6 F L 89 20 114/60 96 09/13/20 11:55 89 20 109/61 93 L 09/13/20 11:50 92 20 110/54 L 94 L 09/13/20 11:45 96.1 F L 96 20 117/59 L 96 09/13/20 08:16 96.0 F L 92 16 111/55 L 96 09/13/20 07:44 88 L 09/13/20 07:12 92 L Pulse Ox 09/13/20 17:00 09/13/20 16:00 09/13/20 14:30 09/13/20 14:16 95 09/13/20 14:00 09/13/20 13:31 09/13/20 13:28 09/13/20 13:00 09/13/20 12:45 09/13/20 12:15 09/13/20 12:10 09/13/20 12:06 09/13/20 12:01 09/13/20 11:55 09/13/20 11:50 09/13/20 11:45 09/13/20 08:16 09/13/20 07:44 09/13/20 07:12 - Problem List Review Problem List Initiated/Reviewed/Updated: Yes - My Orders Last 24 Hours: My Active Orders 09/12/20 17:00 Levofloxacin/Dextrose 5%-Water [Levaquin in D5W 750 MG/150 ML] 750 mg Premix Bag 1 bag IV Q24H - Plan Plan:: ASSESSMENT AND PLAN Dysphasia-seems to be only with solid foods and thicker liquids. Work-up has been negative. -Pain and nausea management CHOLECYSTITIS STATUS POST CHOLECYSTECTOMY -Meropenem 1 g every 8 hours -Postoperative management per Dr. Roberts Shortness of breath and hypoxia-there does appear to be an element of fluid overload. Also evidence of possible bilateral infiltrates consistent with infection. Echocardiogram shows hyperdynamic left ventricular function with MR and TR. -Blood cultures pending -Expand IV antibiotic coverage with levofloxacin -Noninvasive positive pressure ventilation -Supplemental oxygen as needed Hypokalemia -improved with supplementation. -recheck Potassium in am Coronary Artery Disease- had a [place] with stent placed 3 years ago, has blood clotting disorder, no history of PE. -Hold apixaban Chronic Back pain and arthritis-stable. Probably had some narcotic withdrawal yesterday. Symptoms are improving with restarting his usual home medications. -pain medication ordered -Bowel regimen to avoid constipation Tobacco dependence-interested in nicotine patch. -Encourage cessation Maintenance issues - - DVT prophylaxis - SCD - GI prophylaxis -PPI - Nutrition -advance diet as tolerated, n.p.o. after midnight Disposition -I would anticipate discharge home after the hospital stay Primary care physician - Dr. Stock, [facility]
[2020-09-13] MEDS: Finasteride 5 MG Tab PO SCH (21:21)
[2020-09-13] MEDS: Apixaban 5 MG Tab PO SCH (21:21)
[2020-09-13] MEDS: Docusate Sodium 100 MG Cap PO SCH (21:21)
[2020-09-14] MEDS: Dextrose 5%-Lactated Ringers 1,000 ML IV SCH ×2 (02:08→23:15)
[2020-09-14] MEDS: Meropenem 500 MG in Sodium Chloride 0.9% 50 ML IV SCH ×4 (03:50→21:39)
[2020-09-14] MEDS: Ondansetron 4 MG/2 ML SDV IV PRN ×4 (06:04→21:34)
[2020-09-14] MEDS: Albuterol/Ipratropium 3.0-0.5 MG/3 ML Neb Soln INH SCH ×4 (07:00→23:59)
[2020-09-14] MEDS ORDERED: Docusate Sodium 100 MG Cap PO SCH (09:00)
[2020-09-14 09:23] LABS: CORONAVIRUS COVID-19 NAA NEGATIVE (NEGATIVE)
[2020-09-14] MEDS: Furosemide 20 MG/2 ML VIAL IV SCH ×2 (09:24→15:25)
[2020-09-14] MEDS: Apixaban 5 MG Tab PO SCH ×2 (09:33→23:59)
[2020-09-14] MEDS: Docusate Sodium 100 MG Cap PO SCH ×2 (09:33→23:59)
[2020-09-14] MEDS: Aspirin 81 MG Tab.EC PO SCH (09:34)
[2020-09-14] MEDS: Potassium Chloride 20 MEQ Tab.ER PO SCH (09:34)
[2020-09-14] MEDS: SCOPOLAMINE PATCH CHECK TOP SCH (09:34)
[2020-09-14] MEDS: Nicotine 14 MG/24 Hr Patch TRDERM SCH (09:34)
[2020-09-14] MEDS: Cetirizine 10 MG Tab PO SCH (09:35)
[2020-09-14] MEDS: amLODIPine 5 MG Tab PO SCH (09:35)
[2020-09-14] MEDS: PARoxetine 20 MG Tab PO SCH (09:35)
[2020-09-14] MEDS: Acetaminophen/oxyCODONE 325-10 MG Tab PO PRN ×4 (11:10→21:36)
[2020-09-14 13:12] LABS: A/G RATIO 1.2 (0.7-1.7); ALPHA-1-GLOBULIN 0.3 g/dL (0.0-0.4); ALPHA-2-GLOBULIN 0.6 g/dL (0.4-1.0); BETA GLOBULIN 0.7 g/dL (0.7-1.3); GLOBULIN, TOTAL 2.6 g/dL (2.2-3.9); M-SPIKE Not Observed g/dL (Not Observed); PROTEIN, TOTAL, SERUM 5.6 g/dL (6.0-8.5)
--- NOTE | 2020-09-14 13:41 | PCM.PN ---
- General Info Date of Service: 09/14/20 Subjective Update: Mr. Browning has remained fairly stable since surgery yesterday. He is more alert and interactive today. Respiratory status has been stable, with intermittent use of BiPAP. Functional Status: Reports: Ambulating, Urinating - Review of Systems General: Reports: Weakness, Fatigue. Denies: Fever, Chills Pulmonary: Reports: No Symptoms Cardiovascular: Reports: No Symptoms Gastrointestinal: Reports: Abdominal Pain. Denies: Difficulty Swallowing, Hematochezia, Melena, Nausea, Vomiting - Patient Data Vitals - Most Recent: Last Vital Signs Temp 98.2 F 09/14/20 10:00 Pulse 90 09/14/20 13:00 Resp 16 09/14/20 13:00 BP 116/39 L 09/14/20 13:00 Pulse Ox 96 09/14/20 13:00 Weight - Most Recent: 191 lb I&O - Last 24 Hours: Intake & Output 09/13/20 09/14/20 09/14/20 22:59 06:59 14:59 Intake Total 2515 2691 1523 Output Total 520 10 650 Balance 1994 2681 873 Lab Results Last 24 Hours: Laboratory Results - last 24 hr 09/10/20 09/14/20 09/14/20 Range/Units 04:10 04:06 04:06 WBC 11.0 (4.5-11.0) K/uL RBC 3.77 L (4.30-5.90) M/uL Hgb 11.2 L (12.0-15.0) g/dL Hct 35.7 L (40.0-54.0) % MCV 95 (80-98) fL MCH 30 (27-31) pg MCHC 31 L (32-36) % Plt Count 302 (150-400) K/uL Sodium 140 (140-148) mmol/L Potassium 5.0 (3.6-5.2) mmol/L Chloride 103 (100-108) mmol/L Carbon Dioxide 23 (21-32) mmol/L Anion Gap 13.7 (5.0-14.0) mmol/L BUN 37 H (7-18) mg/dL Creatinine 1.4 H (0.8-1.3) mg/dL Est Cr Clr Drug Dosing 63.50 mL/min Estimated GFR (MDRD) 53 L (>60) Glucose 153 H (74-106) mg/dL Calcium 9.1 (8.5-10.1) mg/dL Phosphorus 4.1 (2.5-4.9) mg/dL Magnesium 2.3 (1.8-2.4) mg/dL Total Bilirubin 0.6 (0.2-1.0) mg/dL AST 214 H D (15-37) U/L ALT 241 H (12-78) U/L Alkaline Phosphatase 139 H (46-116) U/L NT-Pro-B Natriuret Pep 7697 H (5-125) pg/mL Total Protein 6.4 (6.4-8.2) g/dL Total Protein (PEP) 5.6 L (6.0-8.5) g/dL Albumin 2.9 L (3.4-5.0) g/dL Albumin (PEP) 3.0 (2.9-4.4) g/dL Globulin 3.5 (2.3-3.5) g/dL Globulin (PEP) 2.6 (2.2-3.9) g/dL Albumin/Globulin Ratio 0.8 L (1.2-2.2) Albumin/Globulin (PEP) 1.2 (0.7-1.7) Nlmkl-0-Wfxpjmmwt 0.3 (0.0-0.4) g/dL Tyfep-5-Plybifczg 0.6 (0.4-1.0) g/dL Beta Globulins 0.7 (0.7-1.3) g/dL Gamma Globulins 1.0 (0.4-1.8) g/dL PEP Note Comment (.) PEP Interpretation Comment (.) NEMO M-Kwabena Not observed (Not Observed) g/dL Influenza Type A RNA (NEGATIVE) RSV RNA (INAAT) (NEGATIVE) Influenza Type B RNA (NEGATIVE) SARS-CoV-2 RNA (ANN) (NEGATIVE) 09/14/20 Range/Units 09:14 WBC (4.5-11.0) K/uL RBC (4.30-5.90) M/uL Hgb (12.0-15.0) g/dL Hct (40.0-54.0) % MCV (80-98) fL MCH (27-31) pg MCHC (32-36) % Plt Count (150-400) K/uL Sodium (140-148) mmol/L Potassium (3.6-5.2) mmol/L Chloride (100-108) mmol/L Carbon Dioxide (21-32) mmol/L Anion Gap (5.0-14.0) mmol/L BUN (7-18) mg/dL Creatinine (0.8-1.3) mg/dL Est Cr Clr Drug Dosing mL/min Estimated GFR (MDRD) (>60) Glucose (74-106) mg/dL Calcium (8.5-10.1) mg/dL Phosphorus (2.5-4.9) mg/dL Magnesium (1.8-2.4) mg/dL Total Bilirubin (0.2-1.0) mg/dL AST (15-37) U/L ALT (12-78) U/L Alkaline Phosphatase (46-116) U/L NT-Pro-B Natriuret Pep (5-125) pg/mL Total Protein (6.4-8.2) g/dL Total Protein (PEP) (6.0-8.5) g/dL Albumin (3.4-5.0) g/dL Albumin (PEP) (2.9-4.4) g/dL Globulin (2.3-3.5) g/dL Globulin (PEP) (2.2-3.9) g/dL Albumin/Globulin Ratio (1.2-2.2) Albumin/Globulin (PEP) (0.7-1.7) Xniqb-3-Jtrzeited (0.0-0.4) g/dL Gwmoy-9-Bnpoltmbi (0.4-1.0) g/dL Beta Globulins (0.7-1.3) g/dL Gamma Globulins (0.4-1.8) g/dL PEP Note (.) PEP Interpretation (.) NEMO M-Kwabena (Not Observed) g/dL Influenza Type A RNA Negative (NEGATIVE) RSV RNA (INAAT) Negative (NEGATIVE) Influenza Type B RNA Negative (NEGATIVE) SARS-CoV-2 RNA (ANN) Negative (NEGATIVE) [place] Results Last 24 Hours: Microbiology 09/13/20 11:30 Gram Stain - Final Gallbladder Wound Culture - Preliminary NO GROWTH AFTER 1 DAY Anaerobic Culture - Preliminary NO GROWTH AFTER 1 DAY Med Orders - Current: Current Medications Albuterol/Ipratropium (Albuterol/Ipratropium 3.0-0.5 Mg/3 Ml Neb Soln) 3 ml INH QIDRT [facility] Last Admin: 09/14/20 10:46 Dose: 3 ml Documented by: Albuterol/Ipratropium (Albuterol/Ipratropium 3.0-0.5 Mg/3 Ml Neb Soln) 3 ml INH ASDIRECTED PRN PRN Reason: BREATHING Amlodipine Besylate (Amlodipine 5 Mg Tab) 10 mg PO DAILY [facility] Last Admin: 09/14/20 09:35 Dose: 10 mg Documented by: Apixaban (Apixaban 5 Mg Tab) 5 mg PO BID [facility] Last Admin: 09/14/20 09:33 Dose: 5 mg Documented by: Aspirin (Aspirin 81 Mg Tab.Ec) 81 mg PO DAILY [facility] Last Admin: 09/14/20 09:34 Dose: 81 mg Documented by: Cetirizine HCl (Cetirizine 10 Mg Tab) 10 mg PO DAILY [facility] Last Admin: 09/14/20 09:35 Dose: 10 mg Documented by: Docusate Sodium (Docusate Sodium 100 Mg Cap) 100 mg PO BID [facility] Last Admin: 09/14/20 09:33 Dose: 100 mg Documented by: Finasteride (Finasteride 5 Mg Tab) 5 mg PO BEDTIME [facility] Last Admin: 09/13/20 21:21 Dose: 5 mg Documented by: Furosemide (Furosemide 20 Mg/2 Ml Vial) 20 mg IV Q6H [facility] Stop: 09/14/20 15:01 Last Admin: 09/14/20 09:24 Dose: 20 mg Documented by: Hydromorphone HCl (Hydromorphone/Normal Saline 15 Mg/30 Ml [employer]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) 0 mg IV ASDIRECTED PRN; Protocol PRN Reason: [employer] PAIN CONTROL Last Admin: 09/14/20 02:08 Dose: 15 mg Documented by: Levofloxacin/Dextrose 750 mg/ (Premix) 150 mls @ 100 mls/hr IV Q24H [facility] Last Admin: 09/13/20 16:43 Dose: 100 mls/hr Documented by: Meropenem 500 mg/ Sodium (Chloride) 50 mls @ 100 mls/hr IV Q6HR [facility] Last Admin: 09/14/20 10:15 Dose: 100 mls/hr Documented by: Dextrose/Lactated Ringer's (Dextrose 5%-Lactated Ringers) 1,000 mls @ 50 mls/hr IV ASDIRECTED [facility] Miscellaneous Information (Remove Nicotine Patch) 1 ea TRDERM BEDTIME [facility] Last Admin: 09/13/20 21:48 Dose: Not Given Documented by: Naloxone HCl (Naloxone 0.4 Mg/Ml Sdv) 0.1 mg IV ASDIRECTED PRN PRN Reason: decreased respiratory rate Nicotine (Nicotine 14 Mg/24 Hr Patch) 14 mg TRDERM DAILY [facility] Last Admin: 09/14/20 09:34 Dose: Not Given Documented by: Nitroglycerin (Nitroglycerin 0.4 Mg Tab.Sl) 0.4 mg SL ASDIRECTED PRN PRN Reason: Chest Pain Scopolamine Patch (Check) 1 each TOP DAILY [facility] Last Admin: 09/14/20 09:34 Dose: 1 each Documented by: Ondansetron HCl (Ondansetron 4 Mg/2 Ml Sdv) 4 mg IV Q4H PRN PRN Reason: Nausea/Vomiting Last Admin: 09/14/20 06:04 Dose: 4 mg Documented by: Oxycodone/Acetaminophen (Acetaminophen/Oxycodone 325-10 Mg Tab) 1 tab PO Q4H PRN PRN Reason: PAIN Last Admin: 09/14/20 11:10 Dose: 1 tab Documented by: Pantoprazole Sodium (Pantoprazole 40 Mg Vial) 40 mg IVPUSH Q24H [facility] Last Admin: 09/13/20 16:01 Dose: 40 mg Documented by: Paroxetine HCl (Paroxetine 20 Mg Tab) 40 mg PO DAILY [facility] Last Admin: 09/14/20 09:35 Dose: 40 mg Documented by: Potassium Chloride (Potassium Chloride 20 Meq Tab.Er) 40 meq PO DAILY [facility] Last Admin: 09/14/20 09:34 Dose: 40 meq Documented by: Discontinued Medications Albuterol (Albuterol 0.083% 2.5 Mg/3 Ml Neb Soln) 2.5 mg NEB Q4H PRN PRN Reason: Shortness Of Breath/wheezing Albuterol/Ipratropium (Albuterol/Ipratropium 3.0-0.5 Mg/3 Ml Neb Soln) 3 ml NEB QID PRN PRN Reason: Shortness Of Breath/wheezing Amlodipine Besylate (Amlodipine 5 Mg Tab) 10 mg PO DAILY [facility] Last Admin: 09/09/20 10:45 Dose: 10 mg Documented by: Bisacodyl (Bisacodyl 5 Mg Tab) 5 mg PO DAILY PRN PRN Reason: Constipation Bupivacaine HCl/Epinephrine Bitart (Bupivacaine 0.5%/Epinephrine 1:200,000 50 Ml Mdv) Confirm Administered Dose 50 ml .ROUTE .STK-MED ONE Stop: 09/13/20 10:08 Last Admin: 09/13/20 11:23 Dose: 20 ml Documented by: Ropivacaine 43 ml/Dexamethasone 8 mg/Epinephrine HCl 0.4 mg/ Sodium Chloride 34.6 ml 0 ml NERVRT ASDIRECTED [facility] Last Admin: 09/13/20 11:06 Dose: 80 syringe Documented by: Dexamethasone (Dexamethasone 4 Mg/Ml Sdv) 4 mg IVPUSH ONETIME ONE Stop: 09/12/20 05:24 Last Admin: 09/12/20 05:48 Dose: 4 mg Documented by: Dexamethasone (Dexamethasone 4 Mg/Ml Sdv) Confirm Administered Dose 4 mg .ROUTE .STK-MED ONE Stop: 09/12/20 05:32 Last Admin: 09/12/20 05:48 Dose: Not Given Documented by: Dexamethasone (Dexamethasone 4 Mg/Ml Sdv) Confirm Administered Dose 4 mg .ROUTE .STK-MED ONE Stop: 09/13/20 09:59 Diphenhydramine HCl (Diphenhydramine 50 Mg/Ml Sdv) 25 mg IVPUSH Q4H PRN PRN Reason: Itching Diphenhydramine HCl (Diphenhydramine 50 Mg/Ml Sdv) 25 - 50 mg IVPUSH Q4H PRN PRN Reason: Itching Docusate Sodium (Docusate Sodium 100 Mg Cap) 100 mg PO BID PRN PRN Reason: Constipation Fentanyl (Fentanyl 100 Mcg/2 Ml Sdv) Confirm Administered Dose 100 mcg .ROUTE .STK-MED ONE Stop: 09/09/20 07:16 Fentanyl (Fentanyl 250 Mcg/5 Ml Sdv) Confirm Administered Dose 250 mcg .ROUTE .STK-MED ONE Stop: 09/13/20 09:59 Furosemide (Furosemide 40 Mg/4 Ml Vial) 40 mg IVPUSH NOW ONE Stop: 09/12/20 15:01 Last Admin: 09/12/20 15:54 Dose: 40 mg Documented by: Furosemide (Furosemide 40 Mg/4 Ml Vial) 40 mg IVPUSH NOW ONE Stop: 09/13/20 09:01 Last Admin: 09/13/20 09:28 Dose: 40 mg Documented by: Glycopyrrolate (Glycopyrrolate 0.2 Mg/Ml 5 Ml Mdv) Confirm Administered Dose 1 mg .ROUTE .STK-MED ONE Stop: 09/13/20 09:59 Hydromorphone HCl (Hydromorphone 0.5 Mg/0.5 Ml Syringe) 0.5 mg IVPUSH ONETIME ONE Stop: 09/09/20 00:53 Last Admin: 09/09/20 00:57 Dose: 0.5 mg Documented by: Hydromorphone HCl (Hydromorphone 1 Mg/Ml Syringe) 1 mg IVPUSH ONETIME ONE Stop: 09/09/20 04:15 Last Admin: 09/09/20 04:55 Dose: 1 mg Documented by: Hydromorphone HCl (Hydromorphone 1 Mg/Ml Syringe) 1 mg IVPUSH Q2H PRN PRN Reason: Pain Stop: 09/11/20 11:30 Last Admin: 09/11/20 08:01 Dose: 1 mg Documented by: Hydromorphone HCl (Hydromorphone 1 Mg/Ml Syringe) Confirm Administered Dose 1 mg .ROUTE .STK-MED ONE Stop: 09/10/20 10:57 Last Admin: 09/10/20 11:02 Dose: Not Given Documented by: Hydromorphone HCl (Hydromorphone/Normal Saline 15 Mg/30 Ml Car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) 0 mg IV ASDIRECTED PRN; Protocol PRN Reason: Pain Last Admin: 09/12/20 16:57 Dose: 15 mg Documented by: Sodium Chloride (Normal Saline) 1,000 mls @ 999 mls/hr IV .BOLUS ONE Stop: 09/09/20 01:39 Last Admin: 09/09/20 00:49 Dose: 999 mls/hr Documented by: Sodium Chloride (Normal Saline) 100 mls @ 3 mls/sec IV ASDIRECTED [facility] Stop: 09/09/20 01:08 Last Admin: 09/09/20 01:15 Dose: 3 mls/sec Documented by: Potassium Chloride 20 meq/ (Premix) 100 mls @ 50 mls/hr IV ONETIME ONE Stop: 09/09/20 03:33 Last Admin: 09/09/20 02:04 Dose: 50 mls/hr Documented by: Sodium Chloride (Normal Saline) 1,000 mls @ 150 mls/hr IV ASDIRECTED [facility] Last Admin: 09/09/20 11:18 Dose: 150 mls/hr Documented by: Pantoprazole Sodium 80 mg/ (Sodium Chloride) 100 mls @ 200 mls/hr IV .BOLUS [facility] Last Admin: 09/09/20 04:48 Dose: 200 mls/hr Documented by: Potassium Chloride 20 meq/ (Premix) 100 mls @ 50 mls/hr IV ONETIME ONE Stop: 09/09/20 04:15 Last Admin: 09/09/20 05:29 Dose: 50 mls/hr Documented by: Promethazine HCl 25 mg/ Sodium (Chloride) 51 mls @ 200 mls/hr IV Q6H PRN PRN Reason: Nausea/Vomiting Last Admin: 09/12/20 04:51 Dose: 200 mls/hr Documented by: Lactated Ringer's (Ringers, Lactated) Confirm Administered Dose 1,000 mls @ as directed .ROUTE .STK-MED ONE Stop: 09/09/20 07:53 Sodium Chloride (Normal Saline) 1,000 mls @ 100 mls/hr IV ASDIRECTED [facility] Last Admin: 09/10/20 05:13 Dose: 100 mls/hr Documented by: Sodium Chloride (Normal Saline) 1,000 mls @ 125 mls/hr IV ASDIRECTED [facility] Last Admin: 09/12/20 10:00 Dose: 125 mls/hr Documented by: Ciprofloxacin/Dextrose 400 mg/ (Premix) 200 mls @ 200 mls/hr IV Q12H [facility] Last Admin: 09/12/20 10:54 Dose: 200 mls/hr Documented by: Metronidazole 500 mg/ Premix 100 mls @ 100 mls/hr IV Q8H [facility] Last Admin: 09/12/20 13:19 Dose: 100 mls/hr Documented by: Sodium Chloride (Normal Saline) 500 mls @ 500 mls/hr IV ONETIME ONE Stop: 09/11/20 18:29 Last Admin: 09/11/20 17:49 Dose: 500 mls/hr Documented by: Sodium Chloride (Normal Saline) 1,000 mls @ 999 mls/hr IV .BOLUS ONE Stop: 09/12/20 06:23 Last Admin: 09/12/20 05:48 Dose: 999 mls/hr Documented by: Sodium Chloride (Normal Saline) 1,000 mls @ 50 mls/hr IV ASDIRECTED [facility] Last Admin: 09/13/20 06:56 Dose: 50 mls/hr Documented by: Sodium Chloride (Normal Saline) 90 mls @ 3.5 mls/sec IV ASDIRECTED [facility] Stop: 09/12/20 15:01 Last Admin: 09/12/20 15:26 Dose: 3.5 mls/sec Documented by: Meropenem 1 gm/ Sodium (Chloride) 100 mls @ 200 mls/hr IV Q8H [facility] Last Admin: 09/13/20 09:29 Dose: 200 mls/hr Documented by: Ketamine HCl 50 mg/ Sodium (Chloride) 50 mls @ 22.59 mls/hr IV ASDIRECTED [facility] Dextrose/Lactated Ringer's (Dextrose 5%-Lactated Ringers) 1,000 mls @ 100 ml s/hr IV ASDIRECTED [facility] Last Admin: 09/14/20 02:08 Dose: 100 mls/hr Documented by: Iopamidol (Iopamidol 612 Mg/Ml 100 Ml Bottle) 100 ml IV . DIRECTED [facility] Stop: 09/09/20 01:08 Last Admin: 09/09/20 01:15 Dose: 100 ml Documented by: Iopamidol (Iopamidol 755 Mg/Ml 100 Ml Bottle) 85 ml IV . DIRECTED [facility] Stop: 09/12/20 15:01 Last Admin: 09/12/20 15:26 Dose: 85 ml Documented by: Ketamine HCl (Ketamine 500 Mg/5 Ml Mdv) 37 mg IV ASDIRECTED [facility] Lidocaine HCl (Lidocaine 1% 5 Ml Sdv) 2 ml INJECT ONETIME ONE Stop: 09/09/20 01:37 Last Admin: 09/09/20 02:04 Dose: 2 ml Documented by: Lidocaine HCl (Lidocaine 1% 5 Ml Sdv) Confirm Administered Dose 5 ml .ROUTE .STK-MED ONE Stop: 09/09/20 04:14 Last Admin: 09/09/20 05:29 Dose: 5 ml Documented by: Lorazepam (Lorazepam 2 Mg/Ml Sdv) 1 mg IV Q6H PRN PRN Reason: Nausea/Vomiting Last Admin: 09/13/20 06:24 Dose: 1 mg Documented by: Lorazepam (Lorazepam 2 Mg/Ml Sdv) Confirm Administered Dose 2 mg .ROUTE .STK-MED ONE Stop: 09/09/20 05:47 Last Admin: 09/09/20 05:54 Dose: Not Given Documented by: Midazolam HCl (Midazolam 1 Mg/Ml 2 Ml Sdv) Confirm Administered Dose 2 mg .ROUTE .STK-MED ONE Stop: 09/09/20 07:16 Miscellaneous Information (Remove Patch) 1 ea TRDERM Q24H [facility] Morphine Sulfate (Morphine 2 Mg/Ml Syringe) 2 mg IVPUSH Q2H PRN PRN Reason: Pain (severe 7-10) Last Admin: 09/09/20 11:16 Dose: 2 mg Documented by: Naloxone HCl (Naloxone 0.4 Mg/Ml Sdv) 0.1 mg IVPUSH Q2M PRN PRN Reason: Respiratory Distress Neostigmine Methylsulfate (Neostigmine Methylsulfate 1 Mg/Ml 5 Ml Syringe) Confirm Administered Dose 5 mg .ROUTE .STK-MED ONE Stop: 09/13/20 09:59 Ondansetron HCl (Ondansetron 4 Mg/2 Ml Sdv) 4 mg IVPUSH ONETIME ONE Stop: 09/09/20 00:40 Last Admin: 09/09/20 00:55 Dose: 4 mg Documented by: Ondansetron HCl (Ondansetron 4 Mg/2 Ml Sdv) Confirm Administered Dose 4 mg .ROUTE .STK-MED ONE Stop: 09/13/20 09:59 Oxycodone/Acetaminophen (Acetaminophen/Oxycodone 325-10 Mg Tab) 1 tab PO Q6H PRN PRN Reason: Pain (moderate 4-6) Last Admin: 09/10/20 05:13 Dose: 1 tab Documented by: Pantoprazole Sodium (Pantoprazole 40 Mg Vial) 40 mg IV Q12H [facility] Last Admin: 09/09/20 13:30 Dose: 40 mg Documented by: Propofol (Propofol 200 Mg/20 Ml Sdv) Confirm Administered Dose 200 mg .ROUTE .STK-MED ONE Stop: 09/09/20 07:16 Propofol (Propofol 200 Mg/20 Ml Sdv) Confirm Administered Dose 200 mg .ROUTE .STK-MED ONE Stop: 09/09/20 07:47 Propofol (Propofol 200 Mg/20 Ml Sdv) Confirm Administered Dose 200 mg .ROUTE .STK-MED ONE Stop: 09/13/20 09:59 Rocuronium [place] (Rocuronium 50 Mg/5 Ml Vial) Confirm Administered Dose 50 mg .ROUTE .STK-MED ONE Stop: 09/13/20 09:59 Scopolamine (Scopolamine 1.5 Mg Transdermal Patch) 1.5 mg TRDERM Q72H PRN PRN Reason: Nausea/Vomiting Stop: 09/14/20 10:00 Last Admin: 09/12/20 00:39 Dose: 1.5 mg Documented by: Sodium Chloride (Sodium Chloride 0.9% 10 Ml Syringe) 10 ml FLUSH ASDIRECTED PRN PRN Reason: Keep Vein Open Last Admin: 09/09/20 00:58 Dose: 10 ml Documented by: Sodium Chloride (Sodium Chloride 0.9% 10 Ml Syringe) 10 ml FLUSH ONETIME ONE Stop: 09/12/20 14:59 Last Admin: 09/12/20 15:26 Dose: 10 ml Documented by: Succinylcholine Chloride (Succinylcholine 200 Mg/10 Ml Mdv) Confirm Administered Dose 200 mg .ROUTE .STK-MED ONE Stop: 09/13/20 09:59 Sugammadex Sodium (Sugammadex Sodium 200 Mg/2 Ml Vial) Confirm Administered Dose 200 mg .ROUTE .STK-MED ONE Stop: 09/13/20 11:37 - Exam Quality Assessment: Supplemental Oxygen, DVT Prophylaxis General: Alert, Oriented, Cooperative, Mild Distress Lungs: Clear to Auscultation, Normal Respiratory Effort Cardiovascular: Regular Rate, Regular Rhythm, No Murmurs GI/Abdominal Exam: Soft, No Organomegaly, Tender. No: Distended, Guarding, Rigid, Rebound Extremities: Non-Tender, No Pedal Edema - Patient Data Lab Results Last 24 hrs: Laboratory Results - last 24 hr 09/10/20 09/14/20 09/14/20 Range/Units 04:10 04:06 04:06 WBC 11.0 (4.5-11.0) K/uL RBC 3.77 L (4.30-5.90) M/uL Hgb 11.2 L (12.0-15.0) g/dL Hct 35.7 L (40.0-54.0) % MCV 95 (80-98) fL MCH 30 (27-31) pg MCHC 31 L (32-36) % Plt Count 302 (150-400) K/uL Sodium 140 (140-148) mmol/L Potassium 5.0 (3.6-5.2) mmol/L Chloride 103 (100-108) mmol/L Carbon Dioxide 23 (21-32) mmol/L Anion Gap 13.7 (5.0-14.0) mmol/L BUN 37 H (7-18) mg/dL Creatinine 1.4 H (0.8-1.3) mg/dL Est Cr Clr Drug Dosing 63.50 mL/min Estimated GFR (MDRD) 53 L (>60) Glucose 153 H (74-106) mg/dL Calcium 9.1 (8.5-10.1) mg/dL Phosphorus 4.1 (2.5-4.9) mg/dL Magnesium 2.3 (1.8-2.4) mg/dL Total Bilirubin 0.6 (0.2-1.0) mg/dL AST 214 H D (15-37) U/L ALT 241 H (12-78) U/L Alkaline Phosphatase 139 H (46-116) U/L NT-Pro-B Natriuret Pep 7697 H (5-125) pg/mL Total Protein 6.4 (6.4-8.2) g/dL Total Protein (PEP) 5.6 L (6.0-8.5) g/dL Albumin 2.9 L (3.4-5.0) g/dL Albumin (PEP) 3.0 (2.9-4.4) g/dL Globulin 3.5 (2.3-3.5) g/dL Globulin (PEP) 2.6 (2.2-3.9) g/dL Albumin/Globulin Ratio 0.8 L (1.2-2.2) Albumin/Globulin (PEP) 1.2 (0.7-1.7) Lwjuk-9-Sbqchpmgv 0.3 (0.0-0.4) g/dL Zdffe-2-Agcbffyml 0.6 (0.4-1.0) g/dL Beta Globulins 0.7 (0.7-1.3) g/dL Gamma Globulins 1.0 (0.4-1.8) g/dL PEP Note Comment (.) PEP Interpretation Comment (.) NEMO M-Kwabena Not observed (Not Observed) g/dL Influenza Type A RNA (NEGATIVE) RSV RNA (INAAT) (NEGATIVE) Influenza Type B RNA (NEGATIVE) SARS-CoV-2 RNA (ANN) (NEGATIVE) 09/14/20 Range/Units 09:14 WBC (4.5-11.0) K/uL RBC (4.30-5.90) M/uL Hgb (12.0-15.0) g/dL Hct (40.0-54.0) % MCV (80-98) fL MCH (27-31) pg MCHC (32-36) % Plt Count (150-400) K/uL Sodium (140-148) mmol/L Potassium (3.6-5.2) mmol/L Chloride (100-108) mmol/L Carbon Dioxide (21-32) mmol/L Anion Gap (5.0-14.0) mmol/L BUN (7-18) mg/dL Creatinine (0.8-1.3) mg/dL Est Cr Clr Drug Dosing mL/min Estimated GFR (MDRD) (>60) Glucose (74-106) mg/dL Calcium (8.5-10.1) mg/dL Phosphorus (2.5-4.9) mg/dL Magnesium (1.8-2.4) mg/dL Total Bilirubin (0.2-1.0) mg/dL AST (15-37) U/L ALT (12-78) U/L Alkaline Phosphatase (46-116) U/L NT-Pro-B Natriuret Pep (5-125) pg/mL Total Protein (6.4-8.2) g/dL Total Protein (PEP) (6.0-8.5) g/dL Albumin (3.4-5.0) g/dL Albumin (PEP) (2.9-4.4) g/dL Globulin (2.3-3.5) g/dL Globulin (PEP) (2.2-3.9) g/dL Albumin/Globulin Ratio (1.2-2.2) Albumin/Globulin (PEP) (0.7-1.7) Novoz-7-Zgrdzsylq (0.0-0.4) g/dL Xarrs-6-Gmiqahgzv (0.4-1.0) g/dL Beta Globulins (0.7-1.3) g/dL Gamma Globulins (0.4-1.8) g/dL PEP Note (.) PEP Interpretation (.) NEMO M-Kwabena (Not Observed) g/dL Influenza Type A RNA Negative (NEGATIVE) RSV RNA (INAAT) Negative (NEGATIVE) Influenza Type B RNA Negative (NEGATIVE) SARS-CoV-2 RNA (ANN) Negative (NEGATIVE) Result Diagrams: 09/14/20 04:06 09/14/20 04:06 [place] Results Last 24 hrs: Microbiology 09/13/20 11:30 Gram Stain - Final Gallbladder Wound Culture - Preliminary NO GROWTH AFTER 1 DAY Anaerobic Culture - Preliminary NO GROWTH AFTER 1 DAY Sepsis Event Note - Evaluation Sepsis Screening Result: No Definite Risk - Focused Exam Vital Signs: Vital Signs Temp Pulse Resp BP BP Pulse Ox Pulse Ox 09/14/20 13:00 90 16 116/39 L 96 09/14/20 12:00 91 12 103/56 L 96 09/14/20 11:00 92 10 L 107/47 L 96 09/14/20 10:49 102 H 95 09/14/20 10:00 98.2 F 95 11 L 119/63 93 L 09/14/20 09:35 119/65 09/14/20 09:00 92 12 119/65 92 L 09/14/20 08:00 99 18 119/71 98 09/14/20 07:00 98.1 F 95 13 122/68 92 L 09/14/20 06:00 19 109/57 L 93 L 09/14/20 05:00 14 116/60 94 L 09/14/20 04:00 98.0 F 20 100/50 L 95 09/14/20 03:00 11 L 108/59 L 94 L 09/14/20 02:00 14 122/58 L 96 - Problem List Review Problem List Initiated/Reviewed/Updated: Yes - Plan Plan:: ASSESSMENT AND PLAN Dysphasia-seems to be only with solid foods and thicker liquids. Work-up has b een negative. -Pain and nausea management CHOLECYSTITIS STATUS POST CHOLECYSTECTOMY -Meropenem 1 g every 8 hours -Postoperative management per Dr. Roberts Shortness of breath and hypoxia-there does appear to be an element of fluid overload. Also evidence of possible bilateral infiltrates consistent with infection. Echocardiogram shows hyperdynamic left ventricular function with MR and TR. Chestnut status overall has remained stable since surgery with intermittent use of BiPAP. -Furosemide as ordered by Dr. Roberts -Blood cultures pending -Expand IV antibiotic coverage with levofloxacin -Noninvasive positive pressure ventilation -Supplemental oxygen as needed Hypokalemia -improved with supplementation. -recheck Potassium in am Coronary Artery Disease- had a TX with stent placed 3 years ago, has blood clotting disorder, no history of PE. -Hold apixaban Chronic Back pain and arthritis-stable. Probably had some narcotic withdrawal yesterday. Symptoms are improving with restarting his usual home medications. -pain medication ordered -Bowel regimen to avoid constipation Tobacco dependence-interested in nicotine patch. -Encourage cessation Maintenance issues - - DVT prophylaxis - SCD - GI prophylaxis -PPI - Nutrition -advance diet as tolerated, n.p.o. after midnight Disposition -I would anticipate discharge home after the hospital stay Primary care physician - Dr. Stock, [facility]
[2020-09-14] MEDS: Pantoprazole 40 MG Vial IVPUSH SCH (15:25)
[2020-09-14] MEDS: Levofloxacin/Dextrose 5%-Water 750 MG in Premix Bag 1 BAG IV SCH (16:51)
[2020-09-14] MEDS ORDERED: hydrOXYzine HCL 100 MG/2 ML SDV IM PRN (19:40)
[2020-09-14] MEDS: LORazepam 2 MG/ML SDV IVPUSH PRN ×2 (19:59→22:10)
[2020-09-14] MEDS ORDERED: Haloperidol Lactate 5 MG/ML SDV ONE (23:54)
[2020-09-14] MEDS ORDERED: Haloperidol Lactate 5 MG/ML SDV IVPUSH PRN (23:55)
[2020-09-15] MEDS ORDERED: Ondansetron 4 MG/2 ML SDV IVPUSH SCH
[2020-09-15] MEDS: Meropenem 500 MG in Sodium Chloride 0.9% 50 ML IV SCH ×4 (04:31→21:05)
[2020-09-15] MEDS: Ondansetron 4 MG/2 ML SDV IVPUSH PRN ×2 (05:34→09:57)
[2020-09-15] MEDS: HYDROmorphone/Normal Saline 15 MG/30 ML PCA IV SCH (06:02)
[2020-09-15] MEDS: Albuterol/Ipratropium 3.0-0.5 MG/3 ML Neb Soln INH SCH ×4 (07:08→21:06)
[2020-09-15] MEDS ORDERED: Sodium Chloride 0.9% 500 ML IV ONE (07:17)
[2020-09-15] MEDS ORDERED: Iopamidol 612 MG/ML 100 ML Bottle IV PRN (10:08)
[2020-09-15] MEDS ORDERED: Sodium Chloride 0.9% 10 ML Syringe FLUSH ONE (10:08)
[2020-09-15] MEDS ORDERED: Sodium Chloride 0.9% 80 ML IV SCH (10:15)
--- NOTE | 2020-09-15 11:10 | CT ---
Abdomen Pelvis w Cont CLINICAL HISTORY: Nausea, liver enzyme elevation COMPARISON: CT abdomen 2018, CTA chest 09/12/2020. TECHNIQUE: Transverse scans were obtained from the base of the lungs to the pubic symphysis following oral contrast and IV infusion of contrast.Auto dosage reduction and iterative reconstructiontechniques employed. FINDINGS: The lung bases show bibasal airspace disease some of this is consolidation as well as some compressive atelectasis. There are moderate bilateral pleural effusions which are similar to the recent CTA chest. The liver shows no mass or biliary dilatation.. The gallbladder has been recently removed. The pancreas shows no mass or inflammatory change. There is moderate streak artifact near the gallbladder fossa from dense barium within the hepatic flexure the colon. There is a small amount of air near the gallbladder fossa which may be within a colonic diverticula. There is some thickening of the descending portion and proximal transverse portion of the duodenum. There is a small amount of free pelvic fluid in the left colonic gutter and in the pelvis The spleen has a normal size and shape. The adrenal glands are normal bilaterally . The kidneys show no mass, stones or hydronephrosis. The ureters have a normal course and caliber. The bladder has normal contour. The aorta has a normal caliber. There is no suspicious retroperitoneal adenopathy. There is generalized subcutaneous edema. IMPRESSION: Recent cholecystectomy. There is a small amount of fluid and small focus of air in the region of the gallbladder fossa. This may represent some volume averaging with the hepatic flexure the colon. This area is prone to some streak artifact from dense barium. No biliary dilatation Thickening of the descending and proximal transverse portion of the duodenum suggests duodenitis Small amount of free fluid in the abdomen Moderate bilateral pleural effusions and bibasal airspace disease persist
[2020-09-15] MEDS ORDERED: Vancomycin 2 GM in Sodium Chloride 0.9% 500 ML IV ONE (12:00)
[2020-09-15] MEDS ORDERED: Vancomycin 1 GM SDV IV SCH (12:00)
--- NOTE | 2020-09-15 13:00 | PCM.PN ---
- General Info Date of Service: 09/15/20 Subjective Update: Mr. Browning has remained fairly weak and lethargic since yesterday. He has had ongoing difficulty with nausea as well as vomiting, abdominal pain related to recent surgery. CT scan of the abdomen pelvis today shows evidence of duodenitis no other obvious or significant abnormalities. He continues to experience some fluid overload, but has had some intermittent hypotension which is responded to fluid. Functional Status: Reports: Ambulating, Urinating. Denies: Tolerating Diet - Review of Systems General: Reports: Weakness, Fatigue. Denies: Fever, Chills Pulmonary: Reports: No Symptoms Cardiovascular: Reports: No Symptoms Gastrointestinal: Reports: Abdominal Pain, Decreased Appetite, Difficulty Swallowing, Nausea, Vomiting. Denies: Hematochezia, Melena Genitourinary: Reports: No Symptoms - Patient Data Vitals - Most Recent: Last Vital Signs Temp 209.3 F H 09/15/20 11:56 Pulse 87 09/15/20 11:56 Resp 21 H 09/15/20 11:56 BP 103/50 L 09/15/20 11:56 Pulse Ox 96 09/15/20 11:56 Weight - Most Recent: 217 lb I&O - Last 24 Hours: Intake & Output 09/14/20 09/15/20 09/15/20 22:59 06:59 14:59 Intake Total 7320 702 9358 Output Total 400 860 750 Balance 850 -10 300 Lab Results Last 24 Hours: Laboratory Results - last 24 hr 09/10/20 09/10/20 09/15/20 Range/Units 04:10 04:10 04:08 WBC 10.0 (4.5-11.0) K/uL RBC 3.70 L (4.30-5.90) M/uL Hgb 11.1 L (12.0-15.0) g/dL Hct 34.0 L (40.0-54.0) % MCV 92 (80-98) fL MCH 30 (27-31) pg MCHC 33 (32-36) % Plt Count 267 (150-400) K/uL Sodium (140-148) mmol/L Potassium (3.6-5.2) mmol/L Chloride (100-108) mmol/L Carbon Dioxide (21-32) mmol/L Anion Gap (5.0-14.0) mmol/L BUN (7-18) mg/dL Creatinine (0.8-1.3) mg/dL Est Cr Clr Drug Dosing mL/min Estimated GFR (MDRD) (>60) Glucose (74-106) mg/dL Calcium (8.5-10.1) mg/dL Phosphorus (2.5-4.9) mg/dL Magnesium (1.8-2.4) mg/dL Total Bilirubin (0.2-1.0) mg/dL AST (15-37) U/L ALT (12-78) U/L Alkaline Phosphatase (46-116) U/L NT-Pro-B Natriuret Pep (5-125) pg/mL Total Protein (6.4-8.2) g/dL Total Protein (PEP) 5.6 L (6.0-8.5) g/dL Albumin (3.4-5.0) g/dL Albumin (PEP) 3.0 (2.9-4.4) g/dL Globulin (2.3-3.5) g/dL Globulin (PEP) 2.6 (2.2-3.9) g/dL Albumin/Globulin Ratio (1.2-2.2) Albumin/Globulin (PEP) 1.2 (0.7-1.7) Vkfyk-5-Rbdlwgagc 0.3 (0.0-0.4) g/dL Mvpjl-5-Ghxtwzybf 0.6 (0.4-1.0) g/dL Beta Globulins 0.7 (0.7-1.3) g/dL Gamma Globulins 1.0 (0.4-1.8) g/dL PEP Note Comment (.) PEP Interpretation Comment (.) NEMO M-Kwabena Not observed (Not Observed) g/dL [facility] Ref Lab Negative (.) 09/15/20 Range/Units 04:08 WBC (4.5-11.0) K/uL RBC (4.30-5.90) M/uL Hgb (12.0-15.0) g/dL Hct (40.0-54.0) % MCV (80-98) fL MCH (27-31) pg MCHC (32-36) % Plt Count (150-400) K/uL Sodium 136 L (140-148) mmol/L Potassium 4.5 (3.6-5.2) mmol/L Chloride 101 (100-108) mmol/L Carbon Dioxide 24 (21-32) mmol/L Anion Gap 15.5 H (5.0-14.0) mmol/L BUN 39 H (7-18) mg/dL Creatinine 1.3 (0.8-1.3) mg/dL Est Cr Clr Drug Dosing 68.38 mL/min Estimated GFR (MDRD) 57 L (>60) Glucose 107 H (74-106) mg/dL Calcium 8.7 (8.5-10.1) mg/dL Phosphorus 3.0 (2.5-4.9) mg/dL Magnesium 2.1 (1.8-2.4) mg/dL Total Bilirubin 0.9 (0.2-1.0) mg/dL AST 520 H D (15-37) U/L ALT 504 H (12-78) U/L Alkaline Phosphatase 135 H (46-116) U/L NT-Pro-B Natriuret Pep 7423 H (5-125) pg/mL Total Protein 5.8 L (6.4-8.2) g/dL Total Protein (PEP) (6.0-8.5) g/dL Albumin 2.8 L (3.4-5.0) g/dL Albumin (PEP) (2.9-4.4) g/dL Globulin 3.0 (2.3-3.5) g/dL Globulin (PEP) (2.2-3.9) g/dL Albumin/Globulin Ratio 0.9 L (1.2-2.2) Albumin/Globulin (PEP) (0.7-1.7) Nsuql-1-Aazcmybtr (0.0-0.4) g/dL Sqreq-8-Vmvyoinxh (0.4-1.0) g/dL Beta Globulins (0.7-1.3) g/dL Gamma Globulins (0.4-1.8) g/dL PEP Note (.) PEP Interpretation (.) NEMO M-Kwabena (Not Observed) g/dL [facility] Ref Lab (.) [facility] Results Last 24 Hours: Microbiology 09/13/20 11:30 Gram Stain - Final Gallbladder Wound Culture - Preliminary NO GROWTH AFTER 2 DAYS Anaerobic Culture - Preliminary NO GROWTH AFTER 2 DAYS Med Orders - Current: Current Medications Albuterol/Ipratropium (Albuterol/Ipratropium 3.0-0.5 Mg/3 Ml Neb Soln) 3 ml INH QIDRT [facility] Last Admin: 09/15/20 11:01 Dose: 3 ml Documented by: Albuterol/Ipratropium (Albuterol/Ipratropium 3.0-0.5 Mg/3 Ml Neb Soln) 3 ml INH ASDIRECTED PRN PRN Reason: BREATHING Amlodipine Besylate (Amlodipine 5 Mg Tab) 10 mg PO DAILY [facility] Last Admin: 09/14/20 09:35 Dose: 10 mg Documented by: Apixaban (Apixaban 5 Mg Tab) 5 mg PO BID [facility] Last Admin: 09/14/20 23:59 Dose: Not Given Documented by: Aspirin (Aspirin 81 Mg Tab.Ec) 81 mg PO DAILY [facility] Last Admin: 09/14/20 09:34 Dose: 81 mg Documented by: Cetirizine HCl (Cetirizine 10 Mg Tab) 10 mg PO DAILY [facility] Last Admin: 09/14/20 09:35 Dose: 10 mg Documented by: Docusate Sodium (Docusate Sodium 100 Mg Cap) 100 mg PO BID [facility] Last Admin: 09/14/20 23:59 Dose: Not Given Documented by: Finasteride (Finasteride 5 Mg Tab) 5 mg PO BEDTIME [facility] Last Admin: 09/15/20 00:00 Dose: Not Given Documented by: Haloperidol Lactate (Haloperidol Lactate 5 Mg/Ml Sdv) 2.5 mg IVPUSH Q2H PRN PRN Reason: Nausea Last Admin: 09/15/20 00:05 Dose: 2.5 mg Documented by: Hydromorphone HCl (Hydromorphone/Normal Saline 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) 0 mg IV ASDIRECTED [facility]; Protocol Last Admin: 09/15/20 06:02 Dose: 15 mg Documented by: Hydroxyzine HCl (Hydroxyzine Hcl 100 Mg/2 Ml Sdv) 100 mg IM Q4H PRN PRN Reason: Pain Last Admin: 09/14/20 20:01 Dose: 100 mg Documented by: Levofloxacin/Dextrose 750 mg/ (Premix) 150 mls @ 100 mls/hr IV Q24H [facility] Last Admin: 09/14/20 16:51 Dose: 100 mls/hr Documented by: Meropenem 500 mg/ Sodium (Chloride) 50 mls @ 100 mls/hr IV Q6HR [facility] Last Admin: 09/15/20 10:00 Dose: 100 mls/hr Documented by: Dextrose/Lactated Ringer's (Dextrose 5%-Lactated Ringers) 1,000 mls @ 50 mls/hr IV ASDIRECTED [facility] Last Admin: 09/14/20 23:15 Dose: 50 mls/hr Documented by: Vancomycin HCl 2 gm/ Sodium (Chloride) 500 mls @ 250 mls/hr IV ONETIME ONE Stop: 09/15/20 13:59 Last Admin: 09/15/20 11:52 Dose: 250 mls/hr Documented by: Vancomycin HCl 1.5 gm/ Sodium (Chloride) 250 mls @ 165 mls/hr IV Q12H [facility] Iopamidol (Iopamidol 612 Mg/Ml 100 Ml Bottle) 100 ml IV . DIRECTED PRN PRN Reason: RADIOLOGY EXAM Stop: 09/16/20 10:09 Last Admin: 09/15/20 10:32 Dose: 100 ml Documented by: Lorazepam (Lorazepam 2 Mg/Ml Sdv) 0.5 - 1 mg IVPUSH Q2H PRN PRN Reason: Nausea Last Admin: 09/14/20 22:10 Dose: 1 mg Documented by: Miscellaneous Information (Remove Nicotine Patch) 1 ea TRDERM BEDTIME [facility] Last Admin: 09/15/20 00:00 Dose: Not Given Documented by: Naloxone HCl (Naloxone 0.4 Mg/Ml Sdv) 0.1 mg IV ASDIRECTED PRN PRN Reason: decreased respiratory rate Nicotine (Nicotine 14 Mg/24 Hr Patch) 14 mg TRDERM DAILY [facility] Last Admin: 09/14/20 09:34 Dose: Not Given Documented by: Nitroglycerin (Nitroglycerin 0.4 Mg Tab.Sl) 0.4 mg SL ASDIRECTED PRN PRN Reason: Chest Pain Scopolamine Patch (Check) 1 each TOP DAILY [facility] Last Admin: 09/14/20 09:34 Dose: 1 each Documented by: Ondansetron HCl (Ondansetron 4 Mg/2 Ml Sdv) 8 mg IVPUSH Q4H PRN PRN Reason: Nausea/Vomiting Last Admin: 09/15/20 09:57 Dose: 8 mg Documented by: Pantoprazole Sodium (Pantoprazole 40 Mg Vial) 40 mg IVPUSH Q12H [facility] Paroxetine HCl (Paroxetine 20 Mg Tab) 40 mg PO DAILY [facility] Last Admin: 09/14/20 09:35 Dose: 40 mg Documented by: Potassium Chloride (Potassium Chloride 20 Meq Tab.Er) 40 meq PO DAILY [facility] Last Admin: 09/14/20 09:34 Dose: 40 meq Documented by: Vancomycin HCl (Vancomycin 1 Gm Sdv) 1 gm IV .PHARMACY TO DOSE [facility] Stop: 09/15/20 16:00 Discontinued Medications Albuterol (Albuterol 0.083% 2.5 Mg/3 Ml Neb Soln) 2.5 mg NEB Q4H PRN PRN Reason: Shortness Of Breath/wheezing Albuterol/Ipratropium (Albuterol/Ipratropium 3.0-0.5 Mg/3 Ml Neb Soln) 3 ml NEB QID PRN PRN Reason: Shortness Of Breath/wheezing Amlodipine Besylate (Amlodipine 5 Mg Tab) 10 mg PO DAILY [facility] Last Admin: 09/09/20 10:45 Dose: 10 mg Documented by: Bisacodyl (Bisacodyl 5 Mg Tab) 5 mg PO DAILY PRN PRN Reason: Constipation Bupivacaine HCl/Epinephrine Bitart (Bupivacaine 0.5%/Epinephrine 1:200,000 50 Ml Mdv) Confirm Administered Dose 50 ml .ROUTE .STK-MED ONE Stop: 09/13/20 10:08 Last Admin: 09/13/20 11:23 Dose: 20 ml Documented by: Ropivacaine 43 ml/Dexamethasone 8 mg/Epinephrine HCl 0.4 mg/ Sodium Chloride 34.6 ml 0 ml NERVRT ASDIRECTED [facility] Last Admin: 09/13/20 11:06 Dose: 80 syringe Documented by: Dexamethasone (Dexamethasone 4 Mg/Ml Sdv) 4 mg IVPUSH ONETIME ONE Stop: 09/12/20 05:24 Last Admin: 09/12/20 05:48 Dose: 4 mg Documented by: Dexamethasone (Dexamethasone 4 Mg/Ml Sdv) Confirm Administered Dose 4 mg .ROUTE .STK-MED ONE Stop: 09/12/20 05:32 Last Admin: 09/12/20 05:48 Dose: Not Given Documented by: Dexamethasone (Dexamethasone 4 Mg/Ml Sdv) Confirm Administered Dose 4 mg .ROUTE .STK-MED ONE Stop: 09/13/20 09:59 Diphenhydramine HCl (Diphenhydramine 50 Mg/Ml Sdv) 25 mg IVPUSH Q4H PRN PRN Reason: Itching Diphenhydramine HCl (Diphenhydramine 50 Mg/Ml Sdv) 25 - 50 mg IVPUSH Q4H PRN PRN Reason: Itching Docusate Sodium (Docusate Sodium 100 Mg Cap) 100 mg PO BID PRN PRN Reason: Constipation Fentanyl (Fentanyl 100 Mcg/2 Ml Sdv) Confirm Administered Dose 100 mcg .ROUTE .STK-MED ONE Stop: 09/09/20 07:16 Fentanyl (Fentanyl 250 Mcg/5 Ml Sdv) Confirm Administered Dose 250 mcg .ROUTE .STK-MED ONE Stop: 09/13/20 09:59 Furosemide (Furosemide 40 Mg/4 Ml Vial) 40 mg IVPUSH NOW ONE Stop: 09/12/20 15:01 Last Admin: 09/12/20 15:54 Dose: 40 mg Documented by: Furosemide (Furosemide 40 Mg/4 Ml Vial) 40 mg IVPUSH NOW ONE Stop: 09/13/20 09:01 Last Admin: 09/13/20 09:28 Dose: 40 mg Documented by: Furosemide (Furosemide 20 Mg/2 Ml Vial) 20 mg IV Q6H [facility] Stop: 09/14/20 15:01 Last Admin: 09/14/20 15:25 Dose: 20 mg Documented by: Glycopyrrolate (Glycopyrrolate 0.2 Mg/Ml 5 Ml Mdv) Confirm Administered Dose 1 mg .ROUTE .STK-MED ONE Stop: 09/13/20 09:59 Haloperidol Lactate (Haloperidol Lactate 5 Mg/Ml Sdv) Confirm Administered Dose 5 mg .ROUTE .STK-MED ONE Stop: 09/14/20 23:55 Last Admin: 09/14/20 23:59 Dose: Not Given Documented by: Hydromorphone HCl (Hydromorphone 0.5 Mg/0.5 Ml Syringe) 0.5 mg IVPUSH ONETIME ONE Stop: 09/09/20 00:53 Last Admin: 09/09/20 00:57 Dose: 0.5 mg Documented by: Hydromorphone HCl (Hydromorphone 1 Mg/Ml Syringe) 1 mg IVPUSH ONETIME ONE Stop: 09/09/20 04:15 Last Admin: 09/09/20 04:55 Dose: 1 mg Documented by: Hydromorphone HCl (Hydromorphone 1 Mg/Ml Syringe) 1 mg IVPUSH Q2H PRN PRN Reason: Pain Stop: 09/11/20 11:30 Last Admin: 09/11/20 08:01 Dose: 1 mg Documented by: Hydromorphone HCl (Hydromorphone 1 Mg/Ml Syringe) Confirm Administered Dose 1 mg .ROUTE .STK-MED ONE Stop: 09/10/20 10:57 Last Admin: 09/10/20 11:02 Dose: Not Given Documented by: Hydromorphone HCl (Hydromorphone/Normal Saline 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) 0 mg IV ASDIRECTED PRN; Protocol PRN Reason: Pain Last Admin: 09/12/20 16:57 Dose: 15 mg Documented by: Hydromorphone HCl (Hydromorphone/Normal Saline 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) 0 mg IV ASDIRECTED PRN; Protocol PRN Reason: DIABETES NURSE PAIN CONTROL Last Admin: 09/14/20 02:08 Dose: 15 mg Documented by: Sodium Chloride (Normal Saline) 1,000 mls @ 999 mls/hr IV .BOLUS ONE Stop: 09/09/20 01:39 Last Admin: 09/09/20 00:49 Dose: 999 mls/hr Documented by: Sodium Chloride (Normal Saline) 100 mls @ 3 mls/sec IV ASDIRECTED STA Stop: 09/09/20 01:08 Last Admin: 09/09/20 01:15 Dose: 3 mls/sec Documented by: Potassium Chloride 20 meq/ (Premix) 100 mls @ 50 mls/hr IV ONETIME ONE Stop: 09/09/20 03:33 Last Admin: 09/09/20 02:04 Dose: 50 mls/hr Documented by: Sodium Chloride (Normal Saline) 1,000 mls @ 150 mls/hr IV ASDIRECTED [facility] Last Admin: 09/09/20 11:18 Dose: 150 mls/hr Documented by: Pantoprazole Sodium 80 mg/ (Sodium Chloride) 100 mls @ 200 mls/hr IV .BOLUS [facility] Last Admin: 09/09/20 04:48 Dose: 200 mls/hr Documented by: Potassium Chloride 20 meq/ (Premix) 100 mls @ 50 mls/hr IV ONETIME ONE Stop: 09/09/20 04:15 Last Admin: 09/09/20 05:29 Dose: 50 mls/hr Documented by: Promethazine HCl 25 mg/ Sodium (Chloride) 51 mls @ 200 mls/hr IV Q6H PRN PRN Reason: Nausea/Vomiting Last Admin: 09/12/20 04:51 Dose: 200 mls/hr Documented by: Lactated Ringer's (Ringers, Lactated) Confirm Administered Dose 1,000 mls @ as directed .ROUTE .STK-MED ONE Stop: 09/09/20 07:53 Sodium Chloride (Normal Saline) 1,000 mls @ 100 mls/hr IV ASDIRECTED [facility] Last Admin: 09/10/20 05:13 Dose: 100 mls/hr Documented by: Sodium Chloride (Normal Saline) 1,000 mls @ 125 mls/hr IV ASDIRECTED [facility] Last Admin: 09/12/20 10:00 Dose: 125 mls/hr Documented by: Ciprofloxacin/Dextrose 400 mg/ (Premix) 200 mls @ 200 mls/hr IV Q12H [facility] Last Admin: 09/12/20 10:54 Dose: 200 mls/hr Documented by: Metronidazole 500 mg/ Premix 100 mls @ 100 mls/hr IV Q8H [facility] Last Admin: 09/12/20 13:19 Dose: 100 mls/hr Documented by: Sodium Chloride (Normal Saline) 500 mls @ 500 mls/hr IV ONETIME ONE Stop: 09/11/20 18:29 Last Admin: 09/11/20 17:49 Dose: 500 mls/hr Documented by: Sodium Chloride (Normal Saline) 1,000 mls @ 999 mls/hr IV .BOLUS ONE Stop: 09/12/20 06:23 Last Admin: 09/12/20 05:48 Dose: 999 mls/hr Documented by: Sodium Chloride (Normal Saline) 1,000 mls @ 50 mls/hr IV ASDIRECTED [facility] Last Admin: 09/13/20 06:56 Dose: 50 mls/hr Documented by: Sodium Chloride (Normal Saline) 90 mls @ 3.5 mls/sec IV ASDIRECTED [facility] Stop: 09/12/20 15:01 Last Admin: 09/12/20 15:26 Dose: 3.5 mls/sec Documented by: Meropenem 1 gm/ Sodium (Chloride) 100 mls @ 200 mls/hr IV Q8H [facility] Last Admin: 09/13/20 09:29 Dose: 200 mls/hr Documented by: Ketamine HCl 50 mg/ Sodium (Chloride) 50 mls @ 22.59 mls/hr IV ASDIRECTED [facility] Dextrose/Lactated Ringer's (Dextrose 5%-Lactated Ringers) 1,000 mls @ 100 mls/hr IV ASDIRECTED [facility] Last Admin: 09/14/20 02:08 Dose: 100 mls/hr Documented by: Sodium Chloride (Normal Saline) 500 mls @ 500 mls/hr IV .BOLUS ONE Stop: 09/15/20 08:16 Last Admin: 09/15/20 07:22 Dose: 500 mls/hr Documented by: Sodium Chloride (Normal Saline) 80 mls @ 3 mls/sec IV ASDIRECTED [facility] Stop: 09/15/20 12:30 Last Admin: 09/15/20 10:32 Dose: 3 mls/sec Documented by: Iopamidol (Iopamidol 612 Mg/Ml 100 Ml Bottle) 100 ml IV . DIRECTED [facility] Stop: 09/09/20 01:08 Last Admin: 09/09/20 01:15 Dose: 100 ml Documented by: Iopamidol (Iopamidol 755 Mg/Ml 100 Ml Bottle) 85 ml IV . DIRECTED [facility] Stop: 09/12/20 15:01 Last Admin: 09/12/20 15:26 Dose: 85 ml Documented by: Ketamine HCl (Ketamine 500 Mg/5 Ml Mdv) 37 mg IV ASDIRECTED [facility] Lidocaine HCl (Lidocaine 1% 5 Ml Sdv) 2 ml INJECT ONETIME ONE Stop: 09/09/20 01:37 Last Admin: 09/09/20 02:04 Dose: 2 ml Documented by: Lidocaine HCl (Lidocaine 1% 5 Ml Sdv) Confirm Administered Dose 5 ml .ROUTE .STK-MED ONE Stop: 09/09/20 04:14 Last Admin: 09/09/20 05:29 Dose: 5 ml Documented by: Lorazepam (Lorazepam 2 Mg/Ml Sdv) 1 mg IV Q6H PRN PRN Reason: Nausea/Vomiting Last Admin: 09/13/20 06:24 Dose: 1 mg Documented by: Lorazepam (Lorazepam 2 Mg/Ml Sdv) Confirm Administered Dose 2 mg .ROUTE .STK-MED ONE Stop: 09/09/20 05:47 Last Admin: 09/09/20 05:54 Dose: Not Given Documented by: Midazolam HCl (Midazolam 1 Mg/Ml 2 Ml Sdv) Confirm Administered Dose 2 mg .ROUTE .STK-MED ONE Stop: 09/09/20 07:16 Miscellaneous Information (Remove Patch) 1 ea TRDERM Q24H [facility] Morphine Sulfate (Morphine 2 Mg/Ml Syringe) 2 mg IVPUSH Q2H PRN PRN Reason: Pain (severe 7-10) Last Admin: 09/09/20 11:16 Dose: 2 mg Documented by: Naloxone HCl (Naloxone 0.4 Mg/Ml Sdv) 0.1 mg IVPUSH Q2M PRN PRN Reason: Respiratory Distress Neostigmine Methylsulfate (Neostigmine Methylsulfate 1 Mg/Ml 5 Ml Syringe) Confirm Administered Dose 5 mg .ROUTE .STK-MED ONE Stop: 09/13/20 09:59 Ondansetron HCl (Ondansetron 4 Mg/2 Ml Sdv) 4 mg IVPUSH ONETIME ONE Stop: 09/09/20 00:40 Last Admin: 09/09/20 00:55 Dose: 4 mg Documented by: Ondansetron HCl (Ondansetron 4 Mg/2 Ml Sdv) 4 mg IV Q4H PRN PRN Reason: Nausea/Vomiting Last Admin: 09/14/20 21:34 Dose: 4 mg Documented by: Ondansetron HCl (Ondansetron 4 Mg/2 Ml Sdv) Confirm Administered Dose 4 mg .ROUTE .STK-MED ONE Stop: 09/13/20 09:59 Ondansetron HCl (Ondansetron 4 Mg/2 Ml Sdv) 8 mg IVPUSH Q4H [facility] Oxycodone/Acetaminophen (Acetaminophen/Oxycodone 325-10 Mg Tab) 1 tab PO Q6H PRN PRN Reason: Pain (moderate 4-6) Last Admin: 09/10/20 05:13 Dose: 1 tab Documented by: Oxycodone/Acetaminophen (Acetaminophen/Oxycodone 325-10 Mg Tab) 1 tab PO Q4H PRN PRN Reason: PAIN Last Admin: 09/14/20 21:36 Dose: 1 tab Documented by: Pantoprazole Sodium (Pantoprazole 40 Mg Vial) 40 mg IV Q12H [facility] Last Admin: 09/09/20 13:30 Dose: 40 mg Documented by: Pantoprazole Sodium (Pantoprazole 40 Mg Vial) 40 mg IVPUSH Q24H [facility] Last Admin: 09/14/20 15:25 Dose: 40 mg Documented by: Propofol (Propofol 200 Mg/20 Ml Sdv) Confirm Administered Dose 200 mg .ROUTE .STK-MED ONE Stop: 09/09/20 07:16 Propofol (Propofol 200 Mg/20 Ml Sdv) Confirm Administered Dose 200 mg .ROUTE .STK-MED ONE Stop: 09/09/20 07:47 Propofol (Propofol 200 Mg/20 Ml Sdv) Confirm Administered Dose 200 mg .ROUTE .STK-MED ONE Stop: 09/13/20 09:59 Rocuronium Neihart (Rocuronium 50 Mg/5 Ml Vial) Confirm Administered Dose 50 mg .ROUTE .STK-MED ONE Stop: 09/13/20 09:59 Scopolamine (Scopolamine 1.5 Mg Transdermal Patch) 1.5 mg TRDERM Q72H PRN PRN Reason: Nausea/Vomiting Stop: 09/14/20 10:00 Last Admin: 09/12/20 00:39 Dose: 1.5 mg Documented by: Sodium Chloride (Sodium Chloride 0.9% 10 Ml Syringe) 10 ml FLUSH ASDIRECTED PRN PRN Reason: Keep Vein Open Last Admin: 09/09/20 00:58 Dose: 10 ml Documented by: Sodium Chloride (Sodium Chloride 0.9% 10 Ml Syringe) 10 ml FLUSH ONETIME ONE Stop: 09/12/20 14:59 Last Admin: 09/12/20 15:26 Dose: 10 ml Documented by: Sodium Chloride (Sodium Chloride 0.9% 10 Ml Syringe) 10 ml FLUSH ONETIME ONE Stop: 09/15/20 10:09 Succinylcholine Chloride (Succinylcholine 200 Mg/10 Ml Mdv) Confirm Administered Dose 200 mg .ROUTE .STK-MED ONE Stop: 09/13/20 09:59 Sugammadex Sodium (Sugammadex Sodium 200 Mg/2 Ml Vial) Confirm Administered Dose 200 mg .ROUTE .STK-MED ONE Stop: 09/13/20 11:37 - Exam Quality Assessment: Supplemental Oxygen, DVT Prophylaxis General: Cooperative, Moderate Distress, Lethargic Lungs: Clear to Auscultation, Normal Respiratory Effort, Decreased Breath Sounds Cardiovascular: Regular Rate, Regular Rhythm, No Murmurs GI/Abdominal Exam: Soft, No Organomegaly, Tender. No: Distended, Guarding, Rigid, Rebound Extremities: Non-Tender, Pedal Edema - Patient Data Lab Results Last 24 hrs: Laboratory Results - last 24 hr 09/10/20 09/10/20 09/15/20 Range/Units 04:10 04:10 04:08 WBC 10.0 (4.5-11.0) K/uL RBC 3.70 L (4.30-5.90) M/uL Hgb 11.1 L (12.0-15.0) g/dL Hct 34.0 L (40.0-54.0) % MCV 92 (80-98) fL MCH 30 (27-31) pg MCHC 33 (32-36) % Plt Count 267 (150-400) K/uL Sodium (140-148) mmol/L Potassium (3.6-5.2) mmol/L Chloride (100-108) mmol/L Carbon Dioxide (21-32) mmol/L Anion Gap (5.0-14.0) mmol/L BUN (7-18) mg/dL Creatinine (0.8-1.3) mg/dL Est Cr Clr Drug Dosing mL/min Estimated GFR (MDRD) (>60) Glucose (74-106) mg/dL Calcium (8.5-10.1) mg/dL Phosphorus (2.5-4.9) mg/dL Magnesium (1.8-2.4) mg/dL Total Bilirubin (0.2-1.0) mg/dL AST (15-37) U/L ALT (12-78) U/L Alkaline Phosphatase (46-116) U/L NT-Pro-B Natriuret Pep (5-125) pg/mL Total Protein (6.4-8.2) g/dL Total Protein (PEP) 5.6 L (6.0-8.5) g/dL Albumin (3.4-5.0) g/dL Albumin (PEP) 3.0 (2.9-4.4) g/dL Globulin (2.3-3.5) g/dL Globulin (PEP) 2.6 (2.2-3.9) g/dL Albumin/Globulin Ratio (1.2-2.2) Albumin/Globulin (PEP) 1.2 (0.7-1.7) Ptfch-6-Exkodrzlf 0.3 (0.0-0.4) g/dL Ywtuq-8-Gartngjav 0.6 (0.4-1.0) g/dL Beta Globulins 0.7 (0.7-1.3) g/dL Gamma Globulins 1.0 (0.4-1.8) g/dL PEP Note Comment (.) PEP Interpretation Comment (.) NEMO M-Kwabena Not observed (Not Observed) g/dL CRUZITO Ref Lab Negative (.) 09/15/20 Range/Units 04:08 WBC (4.5-11.0) K/uL RBC (4.30-5.90) M/uL Hgb (12.0-15.0) g/dL Hct (40.0-54.0) % MCV (80-98) fL MCH (27-31) pg MCHC (32-36) % Plt Count (150-400) K/uL Sodium 136 L (140-148) mmol/L Potassium 4.5 (3.6-5.2) mmol/L Chloride 101 (100-108) mmol/L Carbon Dioxide 24 (21-32) mmol/L Anion Gap 15.5 H (5.0-14.0) mmol/L BUN 39 H (7-18) mg/dL Creatinine 1.3 (0.8-1.3) mg/dL Est Cr Clr Drug Dosing 68.38 mL/min Estimated GFR (MDRD) 57 L (>60) Glucose 107 H (74-106) mg/dL Calcium 8.7 (8.5-10.1) mg/dL Phosphorus 3.0 (2.5-4.9) mg/dL Magnesium 2.1 (1.8-2.4) mg/dL Total Bilirubin 0.9 (0.2-1.0) mg/dL AST 520 H D (15-37) U/L ALT 504 H (12-78) U/L Alkaline Phosphatase 135 H (46-116) U/L NT-Pro-B Natriuret Pep 7423 H (5-125) pg/mL Total Protein 5.8 L (6.4-8.2) g/dL Total Protein (PEP) (6.0-8.5) g/dL Albumin 2.8 L (3.4-5.0) g/dL Albumin (PEP) (2.9-4.4) g/dL Globulin 3.0 (2.3-3.5) g/dL Globulin (PEP) (2.2-3.9) g/dL Albumin/Globulin Ratio 0.9 L (1.2-2.2) Albumin/Globulin (PEP) (0.7-1.7) Enuwj-8-Cbdtdyrjw (0.0-0.4) g/dL Rxmpy-8-Ellnagqks (0.4-1.0) g/dL Beta Globulins (0.7-1.3) g/dL Gamma Globulins (0.4-1.8) g/dL PEP Note (.) PEP Interpretation (.) NEMO M-Kwabena (Not Observed) g/dL CRUZITO Ref Lab (.) Result Diagrams: 09/15/20 04:08 09/15/20 04:08 Kendall Results Last 24 hrs: Microbiology 09/13/20 11:30 Gram Stain - Final Gallbladder Wound Culture - Preliminary NO GROWTH AFTER 2 DAYS Anaerobic Culture - Preliminary NO GROWTH AFTER 2 DAYS Sepsis Event Note - Evaluation Sepsis Screening Result: No Definite Risk - Focused Exam Vital Signs: Vital Signs Temp Pulse Resp BP Pulse Ox 09/15/20 11:56 209.3 F H 87 21 H 103/50 L 96 09/15/20 11:00 89 22 H 103/50 L 96 09/15/20 10:48 98.2 F 88 28 H 109/49 L 98 09/15/20 10:00 89 21 H 100/46 L 96 09/15/20 09:00 87 25 H 96/47 L 94 L 09/15/20 08:00 91 26 H 103/54 L 99 09/15/20 07:27 88 22 H 101/51 L 94 L 09/15/20 07:00 98.3 F 87 20 88/40 L 94 L 09/15/20 06:00 98.6 F 20 99/39 L 93 L 09/15/20 05:00 24 H 95/38 L 95 09/15/20 04:00 98.4 F 17 121/56 L 99 09/15/20 03:00 17 108/47 L 99 09/15/20 02:00 16 107/57 L 99 09/15/20 01:00 17 96/48 L 99 - Problem List Review Problem List Initiated/Reviewed/Updated: Yes - My Orders Last 24 Hours: My Active Orders 09/15/20 12:00 Vancomycin 1 gm IV .PHARMACY TO DOSE Vancomycin 2 gm Sodium Chloride 0.9% [Normal Saline] 500 ml IV ONETIME 09/15/20 12:45 Pantoprazole [ProTONIX IV] 40 mg IVPUSH Q12H 09/15/20 23:59 Vancomycin 1.5 gm Sodium Chloride 0.9% [Normal Saline] 250 ml IV Q12H 09/16/20 05:00 CBC WITH AUTO DIFF [HEME] Timed COMPREHENSIVE METABOLIC PN,CMP [CHEM] Timed - Plan Plan:: ASSESSMENT AND PLAN Dysphasia-seems to be only with solid foods and thicker liquids. Work-up has been negative. -Pain and nausea management CHOLECYSTITIS STATUS POST CHOLECYSTECTOMY -Meropenem 1 g every 8 hours -Postoperative management per Dr. Roberts Shortness of breath and hypoxia-there does appear to be an element of fluid overload. Also evidence of possible bilateral infiltrates consistent with infection. Echocardiogram shows hyperdynamic left ventricular function with MR and TR. respiratory status overall has remained stable since surgery with inte rmittent use of BiPAP. -Hold on furosemide today, despite fluid overload does not appear to be ready for diuresis -Blood cultures pending -Expand IV antibiotic coverage with levofloxacin and vancomycin -Noninvasive positive pressure ventilation -Supplemental oxygen as needed Duodenitis-etiology not apparent Hypokalemia -improved with supplementation. -recheck Potassium in am Coronary Artery Disease- had a MO with stent placed 3 years ago, has blood clotting disorder, no history of PE. -Hold apixaban Chronic Back pain and arthritis-stable. Probably had some narcotic withdrawal yesterday. Symptoms are improving with restarting his usual home medications. -pain medication ordered -Bowel regimen to avoid constipation Tobacco dependence-interested in nicotine patch. -Encourage cessation Maintenance issues - - DVT prophylaxis - SCD - GI prophylaxis -PPI - Nutrition -advance diet as tolerated, n.p.o. after midnight Disposition -I would anticipate discharge home after the hospital stay Primary care physician - Dr. Stock, [facility]
[2020-09-15] MEDS: Nicotine 14 MG/24 Hr Patch TRDERM SCH (13:14)
[2020-09-15] MEDS: Apixaban 5 MG Tab PO SCH ×2 (13:14→21:03)
[2020-09-15] MEDS: Aspirin 81 MG Tab.EC PO SCH (13:14)
[2020-09-15] MEDS: Docusate Sodium 100 MG Cap PO SCH ×2 (13:14→21:02)
[2020-09-15] MEDS: amLODIPine 5 MG Tab PO SCH (13:15)
[2020-09-15] MEDS: Potassium Chloride 20 MEQ Tab.ER PO SCH (13:15)
[2020-09-15] MEDS: PARoxetine 20 MG Tab PO SCH (13:16)
[2020-09-15] MEDS: Cetirizine 10 MG Tab PO SCH (13:16)
[2020-09-15] MEDS: Pantoprazole 40 MG Vial IVPUSH SCH (13:20)
[2020-09-15] MEDS: SCOPOLAMINE PATCH CHECK TOP SCH (13:23)
[2020-09-15] MEDS: Levofloxacin/Dextrose 5%-Water 750 MG in Premix Bag 1 BAG IV SCH (17:00)
[2020-09-15] MEDS: Finasteride 5 MG Tab PO SCH ×2 (21:02)
[2020-09-16] MEDS: Dextrose 5%-Lactated Ringers 1,000 ML IV SCH (02:24)
[2020-09-16] MEDS: Pantoprazole 40 MG Vial IVPUSH SCH ×2 (02:28→12:38)
[2020-09-16] MEDS: Meropenem 500 MG in Sodium Chloride 0.9% 50 ML IV SCH ×4 (03:07→21:27)
[2020-09-16] MEDS: HYDROmorphone/Normal Saline 15 MG/30 ML PCA IV SCH (04:58)
[2020-09-16] MEDS: Albuterol/Ipratropium 3.0-0.5 MG/3 ML Neb Soln INH SCH ×4 (07:02→21:24)
[2020-09-16] MEDS: Aspirin 81 MG Tab.EC PO SCH (08:44)
[2020-09-16] MEDS: Bisacodyl 5 MG Tab PO SCH ×2 (08:46→21:23)
[2020-09-16] MEDS: amLODIPine 5 MG Tab PO SCH (08:47)
[2020-09-16] MEDS: Apixaban 5 MG Tab PO SCH ×2 (08:48→21:23)
[2020-09-16] MEDS: Cetirizine 10 MG Tab PO SCH (08:48)
[2020-09-16] MEDS: PARoxetine 20 MG Tab PO SCH (08:49)
[2020-09-16] MEDS: SCOPOLAMINE PATCH CHECK TOP SCH (08:49)
[2020-09-16] MEDS: Docusate Sodium 100 MG Cap PO SCH ×2 (08:50→21:23)
[2020-09-16] MEDS: Nicotine 14 MG/24 Hr Patch TRDERM SCH (08:50)
[2020-09-16] MEDS: Potassium Chloride 20 MEQ Tab.ER PO SCH (08:50)
[2020-09-16] MEDS ORDERED: Furosemide 20 MG/2 ML VIAL IVPUSH ONE ×2 (10:00→18:00)
--- NOTE | 2020-09-16 15:52 | PCM.PN ---
- General Info Date of Service: 09/16/20 Subjective Update: Mr. Browning has been stable over the last 24 hours. He has improved with less abdominal pain and no nausea and vomiting. Respiratory status has remained stable, he continues to require supplemental oxygen. Functional Status: Reports: Ambulating, Urinating - Review of Systems General: Reports: Weakness, Fatigue. Denies: Fever, Chills Pulmonary: Reports: No Symptoms Cardiovascular: Reports: No Symptoms Gastrointestinal: Reports: Abdominal Pain, Decreased Appetite. Denies: Difficulty Swallowing, Hematochezia, Melena, Nausea, Vomiting Genitourinary: Reports: No Symptoms - Patient Data Vitals - Most Recent: Last Vital Signs Temp 98.3 F 09/16/20 12:00 Pulse 91 09/16/20 14:00 Resp 18 09/16/20 14:00 BP 135/69 09/16/20 14:00 Pulse Ox 92 L 09/16/20 14:00 Weight - Most Recent: 217 lb I&O - Last 24 Hours: Intake & Output 09/16/20 09/16/20 09/16/20 06:59 14:59 22:59 Intake Total 630 1140 Balance 630 1140 Lab Results Last 24 Hours: Laboratory Results - last 24 hr 09/16/20 09/16/20 Range/Units 05:19 05:19 WBC 9.2 (4.5-11.0) K/uL RBC 3.63 L (4.30-5.90) M/uL Hgb 10.9 L (12.0-15.0) g/dL Hct 34.0 L (40.0-54.0) % MCV 94 (80-98) fL MCH 30 (27-31) pg MCHC 32 (32-36) % Plt Count 246 (150-400) K/uL Neut % (Auto) 69 H (36-66) % Lymph % (Auto) 19 L (24-44) % [place] % (Auto) 10 H (2-6) % Eos % (Auto) 2 (2-4) % Baso % (Auto) 0 (0-1) % Sodium 140 (140-148) mmol/L Potassium 4.3 (3.6-5.2) mmol/L Chloride 105 (100-108) mmol/L Carbon Dioxide 27 (21-32) mmol/L Anion Gap 7.7 (5.0-14.0) mmol/L BUN 30 H (7-18) mg/dL Creatinine 1.0 (0.8-1.3) mg/dL Est Cr Clr Drug Dosing 88.90 mL/min Estimated GFR (MDRD) > 60 (>60) Glucose 90 (74-106) mg/dL Calcium 8.1 L (8.5-10.1) mg/dL Total Bilirubin 1.0 (0.2-1.0) mg/dL AST 195 H (15-37) U/L ALT 366 H (12-78) U/L Alkaline Phosphatase 118 H (46-116) U/L Total Protein 5.6 L (6.4-8.2) g/dL Albumin 2.5 L (3.4-5.0) g/dL Globulin 3.1 (2.3-3.5) g/dL Albumin/Globulin Ratio 0.8 L (1.2-2.2) [facility] Results Last 24 Hours: Microbiology 09/13/20 11:30 Gram Stain - Final Gallbladder Wound Culture - Final NO GROWTH AFTER 3 DAYS Anaerobic Culture - Final NO GROWTH AFTER 3 DAYS Med Orders - Current: Current Medications Albuterol/Ipratropium (Albuterol/Ipratropium 3.0-0.5 Mg/3 Ml Neb Soln) 3 ml INH QIDRT [facility] Last Admin: 09/16/20 14:31 Dose: 3 ml Documented by: Albuterol/Ipratropium (Albuterol/Ipratropium 3.0-0.5 Mg/3 Ml Neb Soln) 3 ml INH ASDIRECTED PRN PRN Reason: BREATHING Amlodipine Besylate (Amlodipine 5 Mg Tab) 10 mg PO DAILY [facility] Last Admin: 09/16/20 08:47 Dose: 10 mg Documented by: Apixaban (Apixaban 5 Mg Tab) 5 mg PO BID [facility] Last Admin: 09/16/20 08:48 Dose: 5 mg Documented by: Aspirin (Aspirin 81 Mg Tab.Ec) 81 mg PO DAILY [facility] Last Admin: 09/16/20 08:44 Dose: 81 mg Documented by: Bisacodyl (Bisacodyl 5 Mg Tab) 10 mg PO BID [facility] Last Admin: 09/16/20 08:46 Dose: 10 mg Documented by: Cetirizine HCl (Cetirizine 10 Mg Tab) 10 mg PO DAILY [facility] Last Admin: 09/16/20 08:48 Dose: 10 mg Documented by: Docusate Sodium (Docusate Sodium 100 Mg Cap) 100 mg PO BID [facility] Last Admin: 09/16/20 08:50 Dose: 100 mg Documented by: Finasteride (Finasteride 5 Mg Tab) 5 mg PO BEDTIME [facility] Last Admin: 09/15/20 21:02 Dose: 5 mg Documented by: Furosemide (Furosemide 40 Mg/4 Ml Vial) 20 mg IVPUSH NOW ONE Stop: 09/16/20 18:01 Haloperidol Lactate (Haloperidol Lactate 5 Mg/Ml Sdv) 2.5 mg IVPUSH Q2H PRN PRN Reason: Nausea Last Admin: 09/15/20 00:05 Dose: 2.5 mg Documented by: Hydromorphone HCl (Hydromorphone/Normal Saline 15 Mg/30 Ml Infection Control Coordinator) 0 mg IV ASDIRECTED [facility]; Protocol Last Admin: 09/16/20 04:58 Dose: 15 mg Documented by: Hydroxyzine HCl (Hydroxyzine Hcl 100 Mg/2 Ml Sdv) 100 mg IM Q4H PRN PRN Reason: Pain Last Admin: 09/14/20 20:01 Dose: 100 mg Documented by: Levofloxacin/Dextrose 750 mg/ (Premix) 150 mls @ 100 mls/hr IV Q24H [facility] Last Admin: 09/15/20 17:00 Dose: 100 mls/hr Documented by: Meropenem 500 mg/ Sodium (Chloride) 50 mls @ 100 mls/hr IV Q6HR [facility] Last Admin: 09/16/20 09:43 Dose: 100 mls/hr Documented by: Vancomycin HCl 1.5 gm/ Sodium (Chloride) 250 mls @ 165 mls/hr IV Q12H [facility] Last Admin: 09/16/20 11:43 Dose: 165 mls/hr Documented by: Lorazepam (Lorazepam 2 Mg/Ml Sdv) 0.5 - 1 mg IVPUSH Q2H PRN PRN Reason: Nausea Last Admin: 09/14/20 22:10 Dose: 1 mg Documented by: Miscellaneous Information (Remove Nicotine Patch) 1 ea TRDERM BEDTIME [facility] Last Admin: 09/15/20 21:03 Dose: Not Given Documented by: Naloxone HCl (Naloxone 0.4 Mg/Ml Sdv) 0.1 mg IV ASDIRECTED PRN PRN Reason: decreased respiratory rate Nicotine (Nicotine 14 Mg/24 Hr Patch) 14 mg TRDERM DAILY [facility] Last Admin: 09/16/20 08:50 Dose: Not Given Documented by: Nitroglycerin (Nitroglycerin 0.4 Mg Tab.Sl) 0.4 mg SL ASDIRECTED PRN PRN Reason: Chest Pain Scopolamine Patch (Check) 1 each TOP DAILY [facility] Last Admin: 09/16/20 08:49 Dose: Not Given Documented by: Ondansetron HCl (Ondansetron 4 Mg/2 Ml Sdv) 8 mg IVPUSH Q4H PRN PRN Reason: Nausea/Vomiting Last Admin: 09/15/20 09:57 Dose: 8 mg Documented by: Pantoprazole Sodium (Pantoprazole 40 Mg Vial) 40 mg IVPUSH Q12H [facility] Last Admin: 09/16/20 12:38 Dose: 40 mg Documented by: Paroxetine HCl (Paroxetine 20 Mg Tab) 40 mg PO DAILY [facility] Last Admin: 09/16/20 08:49 Dose: 40 mg Documented by: Potassium Chloride (Potassium Chloride 20 Meq Tab.Er) 40 meq PO DAILY [facility] Last Admin: 09/16/20 08:50 Dose: 40 meq Documented by: Discontinued Medications Albuterol (Albuterol 0.083% 2.5 Mg/3 Ml Neb Soln) 2.5 mg NEB Q4H PRN PRN Reason: Shortness Of Breath/wheezing Albuterol/Ipratropium (Albuterol/Ipratropium 3.0-0.5 Mg/3 Ml Neb Soln) 3 ml NEB QID PRN PRN Reason: Shortness Of Breath/wheezing Amlodipine Besylate (Amlodipine 5 Mg Tab) 10 mg PO DAILY [facility] Last Admin: 09/09/20 10:45 Dose: 10 mg Documented by: Bisacodyl (Bisacodyl 5 Mg Tab) 5 mg PO DAILY PRN PRN Reason: Constipation Bupivacaine HCl/Epinephrine Bitart (Bupivacaine 0.5%/Epinephrine 1:200,000 50 Ml Mdv) Confirm Administered Dose 50 ml .ROUTE .STK-MED ONE Stop: 09/13/20 10:08 Last Admin: 09/13/20 11:23 Dose: 20 ml Documented by: Ropivacaine 43 ml/Dexamethasone 8 mg/Epinephrine HCl 0.4 mg/ Sodium Chloride 34.6 ml 0 ml NERVRT ASDIRECTED [facility] Last Admin: 09/13/20 11:06 Dose: 80 syringe Documented by: Dexamethasone (Dexamethasone 4 Mg/Ml Sdv) 4 mg IVPUSH ONETIME ONE Stop: 09/12/20 05:24 Last Admin: 09/12/20 05:48 Dose: 4 mg Documented by: Dexamethasone (Dexamethasone 4 Mg/Ml Sdv) Confirm Administered Dose 4 mg .ROUTE .STK-MED ONE Stop: 09/12/20 05:32 Last Admin: 09/12/20 05:48 Dose: Not Given Documented by: Dexamethasone (Dexamethasone 4 Mg/Ml Sdv) Confirm Administered Dose 4 mg .ROUTE .STK-MED ONE Stop: 09/13/20 09:59 Diphenhydramine HCl (Diphenhydramine 50 Mg/Ml Sdv) 25 mg IVPUSH Q4H PRN PRN Reason: Itching Diphenhydramine HCl (Diphenhydramine 50 Mg/Ml Sdv) 25 - 50 mg IVPUSH Q4H PRN PRN Reason: Itching Docusate Sodium (Docusate Sodium 100 Mg Cap) 100 mg PO BID PRN PRN Reason: Constipation Fentanyl (Fentanyl 100 Mcg/2 Ml Sdv) Confirm Administered Dose 100 mcg .ROUTE .STK-MED ONE Stop: 09/09/20 07:16 Fentanyl (Fentanyl 250 Mcg/5 Ml Sdv) Confirm Administered Dose 250 mcg .ROUTE .STK-MED ONE Stop: 09/13/20 09:59 Furosemide (Furosemide 40 Mg/4 Ml Vial) 40 mg IVPUSH NOW ONE Stop: 09/12/20 15:01 Last Admin: 09/12/20 15:54 Dose: 40 mg Documented by: Furosemide (Furosemide 40 Mg/4 Ml Vial) 40 mg IVPUSH NOW ONE Stop: 09/13/20 09:01 Last Admin: 09/13/20 09:28 Dose: 40 mg Documented by: Furosemide (Furosemide 20 Mg/2 Ml Vial) 20 mg IV Q6H [facility] Stop: 09/14/20 15:01 Last Admin: 09/14/20 15:25 Dose: 20 mg Documented by: Furosemide (Furosemide 20 Mg/2 Ml Vial) 20 mg IVPUSH NOW ONE Stop: 09/16/20 10:01 Last Admin: 09/16/20 10:35 Dose: 20 mg Documented by: Glycopyrrolate (Glycopyrrolate 0.2 Mg/Ml 5 Ml Mdv) Confirm Administered Dose 1 mg .ROUTE .STK-MED ONE Stop: 09/13/20 09:59 Haloperidol Lactate (Haloperidol Lactate 5 Mg/Ml Sdv) Confirm Administered Dose 5 mg .ROUTE .STK-MED ONE Stop: 09/14/20 23:55 Last Admin: 09/14/20 23:59 Dose: Not Given Documented by: Hydromorphone HCl (Hydromorphone 0.5 Mg/0.5 Ml Syringe) 0.5 mg IVPUSH ONETIME ONE Stop: 09/09/20 00:53 Last Admin: 09/09/20 00:57 Dose: 0.5 mg Documented by: Hydromorphone HCl (Hydromorphone 1 Mg/Ml Syringe) 1 mg IVPUSH ONETIME ONE Stop: 09/09/20 04:15 Last Admin: 09/09/20 04:55 Dose: 1 mg Documented by: Hydromorphone HCl (Hydromorphone 1 Mg/Ml Syringe) 1 mg IVPUSH Q2H PRN PRN Reason: Pain Stop: 09/11/20 11:30 Last Admin: 09/11/20 08:01 Dose: 1 mg Documented by: Hydromorphone HCl (Hydromorphone 1 Mg/Ml Syringe) Confirm Administered Dose 1 mg .ROUTE .STK-MED ONE Stop: 09/10/20 10:57 Last Admin: 09/10/20 11:02 Dose: Not Given Documented by: Hydromorphone HCl (Hydromorphone/Normal Saline 15 Mg/30 Ml Infection Control Coordinator) 0 mg IV ASDIRECTED PRN; Protocol PRN Reason: Pain Last Admin: 09/12/20 16:57 Dose: 15 mg Documented by: Hydromorphone HCl (Hydromorphone/Normal Saline 15 Mg/30 Ml Infection Control Coordinator) 0 mg IV ASDIRECTED PRN; Protocol PRN Reason: [employer]OL Last Admin: 09/14/20 02:08 Dose: 15 mg Documented by: Sodium Chloride (Normal Saline) 1,000 mls @ 999 mls/hr IV .BOLUS ONE Stop: 09/09/20 01:39 Last Admin: 09/09/20 00:49 Dose: 999 mls/hr Documented by: Sodium Chloride (Normal Saline) 100 mls @ 3 mls/sec IV ASDIRECTED [facility] Stop: 09/09/20 01:08 Last Admin: 09/09/20 01:15 Dose: 3 mls/sec Documented by: Potassium Chloride 20 meq/ (Premix) 100 mls @ 50 mls/hr IV ONETIME ONE Stop: 09/09/20 03:33 Last Admin: 09/09/20 02:04 Dose: 50 mls/hr Documented by: Sodium Chloride (Normal Saline) 1,000 mls @ 150 mls/hr IV ASDIRECTED [facility] Last Admin: 09/09/20 11:18 Dose: 150 mls/hr Documented by: Pantoprazole Sodium 80 mg/ (Sodium Chloride) 100 mls @ 200 mls/hr IV .BOLUS [facility] Last Admin: 09/09/20 04:48 Dose: 200 mls/hr Documented by: Potassium Chloride 20 meq/ (Premix) 100 mls @ 50 mls/hr IV ONETIME ONE Stop: 09/09/20 04:15 Last Admin: 09/09/20 05:29 Dose: 50 mls/hr Documented by: Promethazine HCl 25 mg/ Sodium (Chloride) 51 mls @ 200 mls/hr IV Q6H PRN PRN Reason: Nausea/Vomiting Last Admin: 09/12/20 04:51 Dose: 200 mls/hr Documented by: Lactated Ringer's (Ringers, Lactated) Confirm Administered Dose 1,000 mls @ as directed .ROUTE .STK-MED ONE Stop: 09/09/20 07:53 Sodium Chloride (Normal Saline) 1,000 mls @ 100 mls/hr IV ASDIRECTED [facility] Last Admin: 09/10/20 05:13 Dose: 100 mls/hr Documented by: Sodium Chloride (Normal Saline) 1,000 mls @ 125 mls/hr IV ASDIRECTED [facility] Last Admin: 09/12/20 10:00 Dose: 125 mls/hr Documented by: Ciprofloxacin/Dextrose 400 mg/ (Premix) 200 mls @ 200 mls/hr IV Q12H [facility] Last Admin: 09/12/20 10:54 Dose: 200 mls/hr Documented by: Metronidazole 500 mg/ Premix 100 mls @ 100 mls/hr IV Q8H [facility] Last Admin: 09/12/20 13:19 Dose: 100 mls/hr Documented by: Sodium Chloride (Normal Saline) 500 mls @ 500 mls/hr IV ONETIME ONE Stop: 09/11/20 18:29 Last Admin: 09/11/20 17:49 Dose: 500 mls/hr Documented by: Sodium Chloride (Normal Saline) 1,000 mls @ 999 mls/hr IV .BOLUS ONE Stop: 09/12/20 06:23 Last Admin: 09/12/20 05:48 Dose: 999 mls/hr Documented by: Sodium Chloride (Normal Saline) 1,000 mls @ 50 mls/hr IV ASDIRECTED [facility] Last Admin: 09/13/20 06:56 Dose: 50 mls/hr Documented by: Sodium Chloride (Normal Saline) 90 mls @ 3.5 mls/sec IV ASDIRECTED [facility] Stop: 09/12/20 15:01 Last Admin: 09/12/20 15:26 Dose: 3.5 mls/sec Documented by: Meropenem 1 gm/ Sodium (Chloride) 100 mls @ 200 mls/hr IV Q8H [facility] Last Admin: 09/13/20 09:29 Dose: 200 mls/hr Documented by: Ketamine HCl 50 mg/ Sodium (Chloride) 50 mls @ 22.59 mls/hr IV ASDIRECTED [facility] Dextrose/Lactated Ringer's (Dextrose 5%-Lactated Ringers) 1,000 mls @ 100 mls/hr IV ASDIRECTED [facility] Last Admin: 09/14/20 02:08 Dose: 100 mls/hr Documented by: Dextrose/Lactated Ringer's (Dextrose 5%-Lactated Ringers) 1,000 mls @ 50 mls/hr IV ASDIRECTED [facility] Last Admin: 09/16/20 02:24 Dose: 50 mls/hr Documented by: Sodium Chloride (Normal Saline) 500 mls @ 500 mls/hr IV .BOLUS ONE Stop: 09/15/20 08:16 Last Admin: 09/15/20 07:22 Dose: 500 mls/hr Documented by: Sodium Chloride (Normal Saline) 80 mls @ 3 mls/sec IV ASDIRECTED [facility] Stop: 09/15/20 12:30 Last Admin: 09/15/20 10:32 Dose: 3 mls/sec Documented by: Vancomycin HCl 2 gm/ Sodium (Chloride) 500 mls @ 250 mls/hr IV ONETIME ONE Stop: 09/15/20 13:59 Last Admin: 09/15/20 11:52 Dose: 250 mls/hr Documented by: Iopamidol (Iopamidol 612 Mg/Ml 100 Ml Bottle) 100 ml IV . DIRECTED [facility]A Stop: 09/09/20 01:08 Last Admin: 09/09/20 01:15 Dose: 100 ml Documented by: Iopamidol (Iopamidol 755 Mg/Ml 100 Ml Bottle) 85 ml IV . DIRECTED [facility] Stop: 09/12/20 15:01 Last Admin: 09/12/20 15:26 Dose: 85 ml Documented by: Iopamidol (Iopamidol 612 Mg/Ml 100 Ml Bottle) 100 ml IV . DIRECTED PRN PRN Reason: RADIOLOGY EXAM Stop: 09/16/20 10:09 Last Admin: 09/15/20 10:32 Dose: 100 ml Documented by: Ketamine HCl (Ketamine 500 Mg/5 Ml Mdv) 37 mg IV ASDIRECTED [facility] Lidocaine HCl (Lidocaine 1% 5 Ml Sdv) 2 ml INJECT ONETIME ONE Stop: 09/09/20 01:37 Last Admin: 09/09/20 02:04 Dose: 2 ml Documented by: Lidocaine HCl (Lidocaine 1% 5 Ml Sdv) Confirm Administered Dose 5 ml .ROUTE .STK-MED ONE Stop: 09/09/20 04:14 Last Admin: 09/09/20 05:29 Dose: 5 ml Documented by: Lorazepam (Lorazepam 2 Mg/Ml Sdv) 1 mg IV Q6H PRN PRN Reason: Nausea/Vomiting Last Admin: 09/13/20 06:24 Dose: 1 mg Documented by: Lorazepam (Lorazepam 2 Mg/Ml Sdv) Confirm Administered Dose 2 mg .ROUTE .STK-MED ONE Stop: 09/09/20 05:47 Last Admin: 09/09/20 05:54 Dose: Not Given Documented by: Midazolam HCl (Midazolam 1 Mg/Ml 2 Ml Sdv) Confirm Administered Dose 2 mg .ROUTE .STK-MED ONE Stop: 09/09/20 07:16 Miscellaneous Information (Remove Patch) 1 ea TRDERM Q24H [facility] Morphine Sulfate (Morphine 2 Mg/Ml Syringe) 2 mg IVPUSH Q2H PRN PRN Reason: Pain (severe 7-10) Last Admin: 09/09/20 11:16 Dose: 2 mg Documented by: Naloxone HCl (Naloxone 0.4 Mg/Ml Sdv) 0.1 mg IVPUSH Q2M PRN PRN Reason: Respiratory Distress Neostigmine Methylsulfate (Neostigmine Methylsulfate 1 Mg/Ml 5 Ml Syringe) Confirm Administered Dose 5 mg .ROUTE .STK-MED ONE Stop: 09/13/20 09:59 Ondansetron HCl (Ondansetron 4 Mg/2 Ml Sdv) 4 mg IVPUSH ONETIME ONE Stop: 09/09/20 00:40 Last Admin: 09/09/20 00:55 Dose: 4 mg Documented by: Ondansetron HCl (Ondansetron 4 Mg/2 Ml Sdv) 4 mg IV Q4H PRN PRN Reason: Nausea/Vomiting Last Admin: 09/14/20 21:34 Dose: 4 mg Documented by: Ondansetron HCl (Ondansetron 4 Mg/2 Ml Sdv) Confirm Administered Dose 4 mg .ROUT E .STK-MED ONE Stop: 09/13/20 09:59 Ondansetron HCl (Ondansetron 4 Mg/2 Ml Sdv) 8 mg IVPUSH Q4H [facility] Oxycodone/Acetaminophen (Acetaminophen/Oxycodone 325-10 Mg Tab) 1 tab PO Q6H PRN PRN Reason: Pain (moderate 4-6) Last Admin: 09/10/20 05:13 Dose: 1 tab Documented by: Oxycodone/Acetaminophen (Acetaminophen/Oxycodone 325-10 Mg Tab) 1 tab PO Q4H PRN PRN Reason: PAIN Last Admin: 09/14/20 21:36 Dose: 1 tab Documented by: Pantoprazole Sodium (Pantoprazole 40 Mg Vial) 40 mg IV Q12H [facility] Last Admin: 09/09/20 13:30 Dose: 40 mg Documented by: Pantoprazole Sodium (Pantoprazole 40 Mg Vial) 40 mg IVPUSH Q24H [facility] Last Admin: 09/14/20 15:25 Dose: 40 mg Documented by: Propofol (Propofol 200 Mg/20 Ml Sdv) Confirm Administered Dose 200 mg .ROUTE .STK-MED ONE Stop: 09/09/20 07:16 Propofol (Propofol 200 Mg/20 Ml Sdv) Confirm Administered Dose 200 mg .ROUTE .STK-MED ONE Stop: 09/09/20 07:47 Propofol (Propofol 200 Mg/20 Ml Sdv) Confirm Administered Dose 200 mg .ROUTE .STK-MED ONE Stop: 09/13/20 09:59 Rocuronium [place] (Rocuronium 50 Mg/5 Ml Vial) Confirm Administered Dose 50 mg .ROUTE .STK-MED ONE Stop: 09/13/20 09:59 Scopolamine (Scopolamine 1.5 Mg Transdermal Patch) 1.5 mg TRDERM Q72H PRN PRN Reason: Nausea/Vomiting Stop: 09/14/20 10:00 Last Admin: 09/12/20 00:39 Dose: 1.5 mg Documented by: Sodium Chloride (Sodium Chloride 0.9% 10 Ml Syringe) 10 ml FLUSH ASDIRECTED PRN PRN Reason: Keep Vein Open Last Admin: 09/09/20 00:58 Dose: 10 ml Documented by: Sodium Chloride (Sodium Chloride 0.9% 10 Ml Syringe) 10 ml FLUSH ONETIME ONE Stop: 09/12/20 14:59 Last Admin: 09/12/20 15:26 Dose: 10 ml Documented by: Sodium Chloride (Sodium Chloride 0.9% 10 Ml Syringe) 10 ml FLUSH ONETIME ONE Stop: 09/15/20 10:09 Last Admin: 09/15/20 13:22 Dose: 10 ml Documented by: Succinylcholine Chloride (Succinylcholine 200 Mg/10 Ml Mdv) Confirm Administered Dose 200 mg .ROUTE .STK-MED ONE Stop: 09/13/20 09:59 Sugammadex Sodium (Sugammadex Sodium 200 Mg/2 Ml Vial) Confirm Administered Dose 200 mg .ROUTE .STK-MED ONE Stop: 09/13/20 11:37 Vancomycin HCl (Vancomycin 1 Gm Sdv) 1 gm IV .PHARMACY TO DOSE [facility] Stop: 09/15/20 16:00 - Exam Quality Assessment: Supplemental Oxygen, DVT Prophylaxis General: Alert, Oriented, Cooperative, Mild Distress Lungs: Clear to Auscultation, Normal Respiratory Effort Cardiovascular: Regular Rate, Regular Rhythm, No Murmurs GI/Abdominal Exam: Soft, No Organomegaly, Tender. No: Distended, Guarding, Rigid, Rebound Extremities: Non-Tender, Pedal Edema - Patient Data Lab Results Last 24 hrs: Laboratory Results - last 24 hr 09/16/20 09/16/20 Range/Units 05:19 05:19 WBC 9.2 (4.5-11.0) K/uL RBC 3.63 L (4.30-5.90) M/uL Hgb 10.9 L (12.0-15.0) g/dL Hct 34.0 L (40.0-54.0) % MCV 94 (80-98) fL MCH 30 (27-31) pg MCHC 32 (32-36) % Plt Count 246 (150-400) K/uL Neut % (Auto) 69 H (36-66) % Lymph % (Auto) 19 L (24-44) % [place] % (Auto) 10 H (2-6) % Eos % (Auto) 2 (2-4) % Baso % (Auto) 0 (0-1) % Sodium 140 (140-148) mmol/L Potassium 4.3 (3.6-5.2) mmol/L Chloride 105 (100-108) mmol/L Carbon Dioxide 27 (21-32) mmol/L Anion Gap 7.7 (5.0-14.0) mmol/L BUN 30 H (7-18) mg/dL Creatinine 1.0 (0.8-1.3) mg/dL Est Cr Clr Drug Dosing 88.90 mL/min Estimated GFR (MDRD) > 60 (>60) Glucose 90 (74-106) mg/dL Calcium 8.1 L (8.5-10.1) mg/dL Total Bilirubin 1.0 (0.2-1.0) mg/dL AST 195 H (15-37) U/L ALT 366 H (12-78) U/L Alkaline Phosphatase 118 H (46-116) U/L Total Protein 5.6 L (6.4-8.2) g/dL Albumin 2.5 L (3.4-5.0) g/dL Globulin 3.1 (2.3-3.5) g/dL Albumin/Globulin Ratio 0.8 L (1.2-2.2) Result Diagrams: 09/16/20 05:19 09/16/20 05:19 [place] Results Last 24 hrs: Microbiology 09/13/20 11:30 Gram Stain - Final Gallbladder Wound Culture - Final NO GROWTH AFTER 3 DAYS Anaerobic Culture - Final NO GROWTH AFTER 3 DAYS Sepsis Event Note - Evaluation Sepsis Screening Result: No Definite Risk - Focused Exam Vital Signs: Vital Signs Temp Pulse Resp BP BP Pulse Ox 09/16/20 14:00 91 18 135/69 92 L 09/16/20 13:00 96 17 138/71 95 09/16/20 12:00 98.3 F 102 H 19 126/65 94 L 09/16/20 11:00 93 19 147/83 H 93 L 09/16/20 10:00 88 17 129/61 95 09/16/20 09:00 81 14 134/64 94 L 09/16/20 08:47 117/54 L 09/16/20 08:00 97.9 F 86 14 117/54 L 92 L 09/16/20 07:00 79 13 132/64 91 L 09/16/20 06:00 81 16 123/69 91 L 09/16/20 05:00 78 16 126/68 92 L 09/16/20 04:00 81 15 139/61 - Problem List Review Problem List Initiated/Reviewed/Updated: Yes - My Orders Last 24 Hours: My Active Orders 09/15/20 23:59 Vancomycin 1.5 gm Sodium Chloride 0.9% [Normal Saline] 250 ml IV Q12H 09/16/20 15:46 Convert IV to Saline Lock [OM.PC] Routine 09/16/20 18:00 Furosemide [Lasix] 20 mg IVPUSH NOW ONE 09/17/20 05:00 CBC WITH AUTO DIFF [HEME] Timed COMPREHENSIVE METABOLIC PN,CMP [CHEM] Timed - Plan Plan:: ASSESSMENT AND PLAN Dysphasia-resolved -Pain and nausea management CHOLECYSTITIS STATUS POST CHOLECYSTECTOMY -Meropenem 1 g every 8 hours -Postoperative management per Dr. Roberts Shortness of breath and hypoxia-there does appear to be an element of fluid overload. Also evidence of possible bilateral infiltrates consistent with infection. Echocardiogram shows hyperdynamic left ventricular function with MR and TR. -Furosemide 20 mg IV twice today -Blood cultures pending -Expand IV antibiotic coverage with levofloxacin and vancomycin -Noninvasive positive pressure ventilation as needed -Supplemental oxygen as needed Duodenitis-etiology not apparent Hypokalemia -improved with supplementation. -recheck Potassium in am Coronary Artery Disease- had a NV with stent placed 3 years ago, has blood clotting disorder, no history of PE. -Hold apixaban Chronic Back pain and arthritis-stable. -pain medication ordered -Bowel regimen to avoid constipation Tobacco dependence-interested in nicotine patch. -Encourage cessation Maintenance issues - - DVT prophylaxis - SCD - GI prophylaxis -PPI - Nutrition -advance diet as tolerated, n.p.o. after midnight Disposition -I would anticipate discharge home after the hospital stay Primary care physician - Dr. Stock, [facility]
[2020-09-16] MEDS: Levofloxacin/Dextrose 5%-Water 750 MG in Premix Bag 1 BAG IV SCH (16:59)
[2020-09-16] MEDS: Finasteride 5 MG Tab PO SCH (21:23)
[2020-09-17] MEDS: Pantoprazole 40 MG Vial IVPUSH SCH (00:50)
[2020-09-17] MEDS: Meropenem 500 MG in Sodium Chloride 0.9% 50 ML IV SCH ×4 (03:32→21:31)
[2020-09-17] MEDS: Albuterol/Ipratropium 3.0-0.5 MG/3 ML Neb Soln INH SCH ×4 (07:48→21:03)
[2020-09-17] MEDS: HYDROmorphone 2 MG Tab PO PRN ×3 (08:22→21:02)
[2020-09-17] MEDS ORDERED: Magnesium Hydroxide 400 MG/5 ML Susp 30 ML Cup PO ONE (09:00)
[2020-09-17] MEDS: Docusate Sodium 100 MG Cap PO SCH ×2 (09:06→21:03)
[2020-09-17] MEDS: Bisacodyl 5 MG Tab PO SCH ×2 (09:06→21:03)
[2020-09-17] MEDS: Apixaban 5 MG Tab PO SCH ×2 (09:07→21:04)
[2020-09-17] MEDS: Aspirin 81 MG Tab.EC PO SCH (09:08)
[2020-09-17] MEDS: Potassium Chloride 20 MEQ Tab.ER PO SCH (09:09)
[2020-09-17] MEDS: amLODIPine 5 MG Tab PO SCH (09:10)
[2020-09-17] MEDS: Cetirizine 10 MG Tab PO SCH (09:11)
[2020-09-17] MEDS: PARoxetine 20 MG Tab PO SCH (09:11)
[2020-09-17] MEDS: Nicotine 14 MG/24 Hr Patch TRDERM SCH (09:13)
[2020-09-17] MEDS: SCOPOLAMINE PATCH CHECK TOP SCH (09:17)
--- NOTE | 2020-09-17 09:32 | PCM.PN ---
- General Info Date of Service: 09/17/20 Subjective Update: Mr. Browning has done well over the last 24 hours. Vital signs have been stable and he has remained afebrile. Good diuresis with improvement in peripheral edema. Energy level and appetite seem to be slowly improving and he has been spending more time sitting in the chair. Functional Status: Reports: Ambulating, Urinating - Review of Systems General: Reports: Weakness, Fatigue. Denies: Fever, Chills Pulmonary: Reports: No Symptoms Cardiovascular: Reports: No Symptoms Gastrointestinal: Reports: Abdominal Pain, Decreased Appetite. Denies: Difficulty Swallowing, Hematochezia, Melena, Nausea, Vomiting Genitourinary: Reports: No Symptoms - Patient Data Vitals - Most Recent: Last Vital Signs Temp 98.3 F 09/17/20 08:42 Pulse 78 09/17/20 08:42 Resp 17 09/17/20 08:42 BP 100/61 09/17/20 09:10 Pulse Ox 93 L 09/17/20 08:42 Weight - Most Recent: 217 lb I&O - Last 24 Hours: Intake & Output 09/16/20 09/17/20 09/17/20 22:59 06:59 14:59 Intake Total 940 2610 200 Output Total 800 600 625 Balance 140 2009 - Lab Results Last 24 Hours: Laboratory Results - last 24 hr 09/17/20 09/17/20 Range/Units 05:20 05:20 WBC 7.8 (4.5-11.0) K/uL RBC 3.62 L (4.30-5.90) M/uL Hgb 11.0 L (12.0-15.0) g/dL Hct 33.7 L (40.0-54.0) % MCV 93 (80-98) fL MCH 30 (27-31) pg MCHC 33 (32-36) % Plt Count 232 (150-400) K/uL Neut % (Auto) 68 H (36-66) % Lymph % (Auto) 20 L (24-44) % [place] % (Auto) 8 H (2-6) % Eos % (Auto) 4 (2-4) % Baso % (Auto) 0 (0-1) % Sodium 140 (140-148) mmol/L Potassium 4.1 (3.6-5.2) mmol/L Chloride 102 (100-108) mmol/L Carbon Dioxide 28 (21-32) mmol/L Anion Gap 9.7 (5.0-14.0) mmol/L BUN 24 H (7-18) mg/dL Creatinine 0.9 (0.8-1.3) mg/dL Est Cr Clr Drug Dosing 98.77 mL/min Estimated GFR (MDRD) > 60 (>60) Glucose 91 (74-106) mg/dL Calcium 8.4 L (8.5-10.1) mg/dL Total Bilirubin 1.1 H (0.2-1.0) mg/dL AST 141 H (15-37) U/L ALT 309 H (12-78) U/L Alkaline Phosphatase 109 (46-116) U/L Total Protein 5.4 L (6.4-8.2) g/dL Albumin 2.4 L (3.4-5.0) g/dL Globulin 3.0 (2.3-3.5) g/dL Albumin/Globulin Ratio 0.8 L (1.2-2.2) [place] Results Last 24 Hours: Microbiology 09/13/20 11:30 Gram Stain - Final Gallbladder Wound Culture - Final NO GROWTH AFTER 3 DAYS Anaerobic Culture - Final NO GROWTH AFTER 3 DAYS Med Orders - Current: Current Medications Albuterol/Ipratropium (Albuterol/Ipratropium 3.0-0.5 Mg/3 Ml Neb Soln) 3 ml INH QIDRT [facility] Last Admin: 09/17/20 07:48 Dose: 3 ml Documented by: Albuterol/Ipratropium (Albuterol/Ipratropium 3.0-0.5 Mg/3 Ml Neb Soln) 3 ml INH ASDIRECTED PRN PRN Reason: BREATHING Amlodipine Besylate (Amlodipine 5 Mg Tab) 10 mg PO DAILY [facility] Last Admin: 09/17/20 09:10 Dose: 10 mg Documented by: Apixaban (Apixaban 5 Mg Tab) 5 mg PO BID [facility] Last Admin: 09/17/20 09:07 Dose: 5 mg Documented by: Aspirin (Aspirin 81 Mg Tab.Ec) 81 mg PO DAILY [facility] Last Admin: 09/17/20 09:08 Dose: 81 mg Documented by: Bisacodyl (Bisacodyl 5 Mg Tab) 10 mg PO BID [facility] Last Admin: 09/17/20 09:06 Dose: 10 mg Documented by: Cetirizine HCl (Cetirizine 10 Mg Tab) 10 mg PO DAILY [facility] Last Admin: 09/17/20 09:11 Dose: 10 mg Documented by: Docusate Sodium (Docusate Sodium 100 Mg Cap) 100 mg PO BID [facility] Last Admin: 09/17/20 09:06 Dose: 100 mg Documented by: Finasteride (Finasteride 5 Mg Tab) 5 mg PO BEDTIME [facility] Last Admin: 09/16/20 21:23 Dose: 5 mg Documented by: Furosemide (Furosemide 40 Mg/4 Ml Vial) 20 mg IVPUSH NOW ONE Stop: 09/17/20 09:28 Haloperidol Lactate (Haloperidol Lactate 5 Mg/Ml Sdv) 2.5 mg IVPUSH Q2H PRN PRN Reason: Nausea Last Admin: 09/15/20 00:05 Dose: 2.5 mg Documented by: Hydromorphone HCl (Hydromorphone 2 Mg Tab) 2 - 4 mg PO Q4H PRN PRN Reason: Pain Last Admin: 09/17/20 08:22 Dose: 2 mg Documented by: Hydroxyzine HCl (Hydroxyzine Hcl 100 Mg/2 Ml Sdv) 100 mg IM Q4H PRN PRN Reason: Pain Last Admin: 09/14/20 20:01 Dose: 100 mg Documented by: Levofloxacin/Dextrose 750 mg/ (Premix) 150 mls @ 100 mls/hr IV Q24H [facility] Last Admin: 09/16/20 16:59 Dose: 100 mls/hr Documented by: Meropenem 500 mg/ Sodium (Chloride) 50 mls @ 100 mls/hr IV Q6HR [facility] Last Admin: 09/17/20 03:32 Dose: 100 mls/hr Documented by: Vancomycin HCl 1.5 gm/ Sodium (Chloride) 250 mls @ 165 mls/hr IV Q12H [facility] Last Admin: 09/17/20 00:07 Dose: 165 mls/hr Documented by: Lorazepam (Lorazepam 2 Mg/Ml Sdv) 0.5 - 1 mg IVPUSH Q2H PRN PRN Reason: Nausea Last Admin: 09/14/20 22:10 Dose: 1 mg Documented by: Miscellaneous Information (Remove Nicotine Patch) 1 ea TRDERM BEDTIME [facility] Last Admin: 09/16/20 21:25 Dose: Not Given Documented by: Nicotine (Nicotine 14 Mg/24 Hr Patch) 14 mg TRDERM DAILY [facility] Last Admin: 09/17/20 09:13 Dose: Not Given Documented by: Nitroglycerin (Nitroglycerin 0.4 Mg Tab.Sl) 0.4 mg SL ASDIRECTED PRN PRN Reason: Chest Pain Scopolamine Patch (Check) 1 each TOP DAILY [facility] Last Admin: 09/17/20 09:17 Dose: Not Given Documented by: Ondansetron HCl (Ondansetron 4 Mg/2 Ml Sdv) 8 mg IVPUSH Q4H PRN PRN Reason: Nausea/Vomiting Last Admin: 09/15/20 09:57 Dose: 8 mg Documented by: Pantoprazole Sodium (Pantoprazole 40 Mg Tab.Cr) 40 mg PO BIDAC [facility] Paroxetine HCl (Paroxetine 20 Mg Tab) 40 mg PO DAILY [facility] Last Admin: 09/17/20 09:11 Dose: 40 mg Documented by: Potassium Chloride (Potassium Chloride 20 Meq Tab.Er) 40 meq PO DAILY [facility] Last Admin: 09/17/20 09:09 Dose: 40 meq Documented by: Discontinued Medications Albuterol (Albuterol 0.083% 2.5 Mg/3 Ml Neb Soln) 2.5 mg NEB Q4H PRN PRN Reason: Shortness Of Breath/wheezing Albuterol/Ipratropium (Albuterol/Ipratropium 3.0-0.5 Mg/3 Ml Neb Soln) 3 ml NEB QID PRN PRN Reason: Shortness Of Breath/wheezing Amlodipine Besylate (Amlodipine 5 Mg Tab) 10 mg PO DAILY [facility] Last Admin: 09/09/20 10:45 Dose: 10 mg Documented by: Bisacodyl (Bisacodyl 5 Mg Tab) 5 mg PO DAILY PRN PRN Reason: Constipation Bupivacaine HCl/Epinephrine Bitart (Bupivacaine 0.5%/Epinephrine 1:200,000 50 Ml Mdv) Confirm Administered Dose 50 ml .ROUTE .STK-MED ONE Stop: 09/13/20 10:08 Last Admin: 09/13/20 11:23 Dose: 20 ml Documented by: Ropivacaine 43 ml/Dexamethasone 8 mg/Epinephrine HCl 0.4 mg/ Sodium Chloride 34.6 ml 0 ml NERVRT ASDIRECTED [facility] Last Admin: 09/13/20 11:06 Dose: 80 syringe Documented by: Dexamethasone (Dexamethasone 4 Mg/Ml Sdv) 4 mg IVPUSH ONETIME ONE Stop: 09/12/20 05:24 Last Admin: 09/12/20 05:48 Dose: 4 mg Documented by: Dexamethasone (Dexamethasone 4 Mg/Ml Sdv) Confirm Administered Dose 4 mg .ROUTE .STK-MED ONE Stop: 09/12/20 05:32 Last Admin: 09/12/20 05:48 Dose: Not Given Documented by: Dexamethasone (Dexamethasone 4 Mg/Ml Sdv) Confirm Administered Dose 4 mg .ROUTE .STK-MED ONE Stop: 09/13/20 09:59 Diphenhydramine HCl (Diphenhydramine 50 Mg/Ml Sdv) 25 mg IVPUSH Q4H PRN PRN Reason: Itching Diphenhydramine HCl (Diphenhydramine 50 Mg/Ml Sdv) 25 - 50 mg IVPUSH Q4H PRN PRN Reason: Itching Docusate Sodium (Docusate Sodium 100 Mg Cap) 100 mg PO BID PRN PRN Reason: Constipation Fentanyl (Fentanyl 100 Mcg/2 Ml Sdv) Confirm Administered Dose 100 mcg .ROUTE .STK-MED ONE Stop: 09/09/20 07:16 Fentanyl (Fentanyl 250 Mcg/5 Ml Sdv) Confirm Administered Dose 250 mcg .ROUTE .STK-MED ONE Stop: 09/13/20 09:59 Furosemide (Furosemide 40 Mg/4 Ml Vial) 40 mg IVPUSH NOW ONE Stop: 09/12/20 15:01 Last Admin: 09/12/20 15:54 Dose: 40 mg Documented by: Furosemide (Furosemide 40 Mg/4 Ml Vial) 40 mg IVPUSH NOW ONE Stop: 09/13/20 09:01 Last Admin: 09/13/20 09:28 Dose: 40 mg Documented by: Furosemide (Furosemide 20 Mg/2 Ml Vial) 20 mg IV Q6H [facility] Stop: 09/14/20 15:01 Last Admin: 09/14/20 15:25 Dose: 20 mg Documented by: Furosemide (Furosemide 20 Mg/2 Ml Vial) 20 mg IVPUSH NOW ONE Stop: 09/16/20 10:01 Last Admin: 09/16/20 10:35 Dose: 20 mg Documented by: Furosemide (Furosemide 20 Mg/2 Ml Vial) 20 mg IVPUSH NOW ONE Stop: 09/16/20 18:01 Last Admin: 09/16/20 18:50 Dose: 20 mg Documented by: Glycopyrrolate (Glycopyrrolate 0.2 Mg/Ml 5 Ml Mdv) Confirm Administered Dose 1 mg .ROUTE .STK-MED ONE Stop: 09/13/20 09:59 Haloperidol Lactate (Haloperidol Lactate 5 Mg/Ml Sdv) Confirm Administered Dose 5 mg .ROUTE .STK-MED ONE Stop: 09/14/20 23:55 Last Admin: 09/14/20 23:59 Dose: Not Given Documented by: Hydromorphone HCl (Hydromorphone 0.5 Mg/0.5 Ml Syringe) 0.5 mg IVPUSH ONETIME ONE Stop: 09/09/20 00:53 Last Admin: 09/09/20 00:57 Dose: 0.5 mg Documented by: Hydromorphone HCl (Hydromorphone 1 Mg/Ml Syringe) 1 mg IVPUSH ONETIME ONE Stop: 09/09/20 04:15 Last Admin: 09/09/20 04:55 Dose: 1 mg Documented by: Hydromorphone HCl (Hydromorphone 1 Mg/Ml Syringe) 1 mg IVPUSH Q2H PRN PRN Reason: Pain Stop: 09/11/20 11:30 Last Admin: 09/11/20 08:01 Dose: 1 mg Documented by: Hydromorphone HCl (Hydromorphone 1 Mg/Ml Syringe) Confirm Administered Dose 1 mg .ROUTE .STK-MED ONE Stop: 09/10/20 10:57 Last Admin: 09/10/20 11:02 Dose: Not Given Documented by: Hydromorphone HCl (Hydromorphone/Normal Saline 15 Mg/30 Ml Extrusion [employer]) 0 mg IV ASDIRECTED PRN; Protocol PRN Reason: Pain Last Admin: 09/12/20 16:57 Dose: 15 mg Documented by: Hydromorphone HCl (Hydromorphone/Normal Saline 15 Mg/30 Ml Extrusion [employer] Supervisor) 0 mg IV ASDIRECTED PRN; Protocol PRN Reason: [employer] PAIN [employer] Last Admin: 09/14/20 02:08 Dose: 15 mg Documented by: Hydromorphone HCl (Hydromorphone/Normal Saline 15 Mg/30 Ml Extrusion [employer] Supervisor) 0 mg IV ASDIRECTED [facility]; Protocol Last Admin: 09/16/20 04:58 Dose: 15 mg Documented by: Sodium Chloride (Normal Saline) 1,000 mls @ 999 mls/hr IV .BOLUS ONE Stop: 09/09/20 01:39 Last Admin: 09/09/20 00:49 Dose: 999 mls/hr Documented by: Sodium Chloride (Normal Saline) 100 mls @ 3 mls/sec IV ASDIRECTED [facility] Stop: 09/09/20 01:08 Last Admin: 09/09/20 01:15 Dose: 3 mls/sec Documented by: Potassium Chloride 20 meq/ (Premix) 100 mls @ 50 mls/hr IV ONETIME ONE Stop: 09/09/20 03:33 Last Admin: 09/09/20 02:04 Dose: 50 mls/hr Documented by: Sodium Chloride (Normal Saline) 1,000 mls @ 150 mls/hr IV ASDIRECTED [facility] Last Admin: 09/09/20 11:18 Dose: 150 mls/hr Documented by: Pantoprazole Sodium 80 mg/ (Sodium Chloride) 100 mls @ 200 mls/hr IV .BOLUS [facility] Last Admin: 09/09/20 04:48 Dose: 200 mls/hr Documented by: Potassium Chloride 20 meq/ (Premix) 100 mls @ 50 mls/hr IV ONETIME ONE Stop: 09/09/20 04:15 Last Admin: 09/09/20 05:29 Dose: 50 mls/hr Documented by: Promethazine HCl 25 mg/ Sodium (Chloride) 51 mls @ 200 mls/hr IV Q6H PRN PRN Reason: Nausea/Vomiting Last Admin: 09/12/20 04:51 Dose: 200 mls/hr Documented by: Lactated Ringer's (Ringers, Lactated) Confirm Administered Dose 1,000 mls @ as directed .ROUTE .STK-MED ONE Stop: 09/09/20 07:53 Sodium Chloride (Normal Saline) 1,000 mls @ 100 mls/hr IV ASDIRECTED [facility] Last Admin: 09/10/20 05:13 Dose: 100 mls/hr Documented by: Sodium Chloride (Normal Saline) 1,000 mls @ 125 mls/hr IV ASDIRECTED [facility] Last Admin: 09/12/20 10:00 Dose: 125 mls/hr Documented by: Ciprofloxacin/Dextrose 400 mg/ (Premix) 200 mls @ 200 mls/hr IV Q12H [facility] Last Admin: 09/12/20 10:54 Dose: 200 mls/hr Documented by: Metronidazole 500 mg/ Premix 100 mls @ 100 mls/hr IV Q8H [facility] Last Admin: 09/12/20 13:19 Dose: 100 mls/hr Documented by: Sodium Chloride (Normal Saline) 500 mls @ 500 mls/hr IV ONETIME ONE Stop: 09/11/20 18:29 Last Admin: 09/11/20 17:49 Dose: 500 mls/hr Documented by: Sodium Chloride (Normal Saline) 1,000 mls @ 999 mls/hr IV .BOLUS ONE Stop: 09/12/20 06:23 Last Admin: 09/12/20 05:48 Dose: 999 mls/hr Documented by: Sodium Chloride (Normal Saline) 1,000 mls @ 50 mls/hr IV ASDIRECTED [facility] Last Admin: 09/13/20 06:56 Dose: 50 mls/hr Documented by: Sodium Chloride (Normal Saline) 90 mls @ 3.5 mls/sec IV ASDIRECTED [facility] Stop: 09/12/20 15:01 Last Admin: 09/12/20 15:26 Dose: 3.5 mls/sec Documented by: Meropenem 1 gm/ Sodium (Chloride) 100 mls @ 200 mls/hr IV Q8H [facility] Last Admin: 09/13/20 09:29 Dose: 200 mls/hr Documented by: Ketamine HCl 50 mg/ Sodium (Chloride) 50 mls @ 22.59 mls/hr IV ASDIRECTED [facility] Dextrose/Lactated Ringer's (Dextrose 5%-Lactated Ringers) 1,000 mls @ 100 mls/hr IV ASDIRECTED [facility] Last Admin: 09/14/20 02:08 Dose: 100 mls/hr Documented by: Dextrose/Lactated Ringer's (Dextrose 5%-Lactated Ringers) 1,000 mls @ 50 mls/hr IV ASDIRECTED [facility] Last Admin: 09/16/20 02:24 Dose: 50 mls/hr Documented by: Sodium Chloride (Normal Saline) 500 mls @ 500 mls/hr IV .BOLUS ONE Stop: 09/15/20 08:16 Last Admin: 09/15/20 07:22 Dose: 500 mls/hr Documented by: Sodium Chloride (Normal Saline) 80 mls @ 3 mls/sec IV ASDIRECTED [facility] Stop: 09/15/20 12:30 Last Admin: 09/15/20 10:32 Dose: 3 mls/sec Documented by: Vancomycin HCl 2 gm/ Sodium (Chloride) 500 mls @ 250 mls/hr IV ONETIME ONE Stop: 09/15/20 13:59 Last Admin: 09/15/20 11:52 Dose: 250 mls/hr Documented by: Iopamidol (Iopamidol 612 Mg/Ml 100 Ml Bottle) 100 ml IV . DIRECTED [facility] Stop: 09/09/20 01:08 Last Admin: 09/09/20 01:15 Dose: 100 ml Documented by: Iopamidol (Iopamidol 755 Mg/Ml 100 Ml Bottle) 85 ml IV . DIRECTED [facility] Stop: 09/12/20 15:01 Last Admin: 09/12/20 15:26 Dose: 85 ml Documented by: Iopamidol (Iopamidol 612 Mg/Ml 100 Ml Bottle) 100 ml IV . DIRECTED PRN PRN Reason: RADIOLOGY EXAM Stop: 09/16/20 10:09 Last Admin: 09/15/20 10:32 Dose: 100 ml Documented by: Ketamine HCl (Ketamine 500 Mg/5 Ml Mdv) 37 mg IV ASDIRECTED [facility] Lidocaine HCl (Lidocaine 1% 5 Ml Sdv) 2 ml INJECT ONETIME ONE Stop: 09/09/20 01:37 Last Admin: 09/09/20 02:04 Dose: 2 ml Documented by: Lidocaine HCl (Lidocaine 1% 5 Ml Sdv) Confirm Administered Dose 5 ml .ROUTE .STK-MED ONE Stop: 09/09/20 04:14 Last Admin: 09/09/20 05:29 Dose: 5 ml Documented by: Lorazepam (Lorazepam 2 Mg/Ml Sdv) 1 mg IV Q6H PRN PRN Reason: Nausea/Vomiting Last Admin: 09/13/20 06:24 Dose: 1 mg Documented by: Lorazepam (Lorazepam 2 Mg/Ml Sdv) Confirm Administered Dose 2 mg .ROUTE .STK-MED ONE Stop: 09/09/20 05:47 Last Admin: 09/09/20 05:54 Dose: Not Given Documented by: Magnesium Hydroxide (Magnesium Hydroxide 400 Mg/5 Ml Susp 30 Ml Cup) 30 ml PO ONETIME ONE Stop: 09/17/20 09:01 Last Admin: 09/17/20 09:12 Dose: 30 ml Documented by: Midazolam HCl (Midazolam 1 Mg/Ml 2 Ml Sdv) Confirm Administered Dose 2 mg .ROUTE .STK-MED ONE Stop: 09/09/20 07:16 Miscellaneous Information (Remove Patch) 1 ea TRDERM Q24H [facility] Morphine Sulfate (Morphine 2 Mg/Ml Syringe) 2 mg IVPUSH Q2H PRN PRN Reason: Pain (severe 7-10) Last Admin: 09/09/20 11:16 Dose: 2 mg Documented by: Naloxone HCl (Naloxone 0.4 Mg/Ml Sdv) 0.1 mg IVPUSH Q2M PRN PRN Reason: Respiratory Distress Naloxone HCl (Naloxone 0.4 Mg/Ml Sdv) 0.1 mg IV ASDIRECTED PRN PRN Reason: decreased respiratory rate Neostigmine Methylsulfate (Neostigmine Methylsulfate 1 Mg/Ml 5 Ml Syringe) Confirm Administered Dose 5 mg .ROUTE .STK-MED ONE Stop: 09/13/20 09:59 Ondansetron HCl (Ondansetron 4 Mg/2 Ml Sdv) 4 mg IVPUSH ONETIME ONE Stop: 09/09/20 00:40 Last Admin: 09/09/20 00:55 Dose: 4 mg Documented by: Ondansetron HCl (Ondansetron 4 Mg/2 Ml Sdv) 4 mg IV Q4H PRN PRN Reason: Nausea/Vomiting Last Admin: 09/14/20 21:34 Dose: 4 mg Documented by: Ondansetron HCl (Ondansetron 4 Mg/2 Ml Sdv) Confirm Administered Dose 4 mg .ROUTE .STK-MED ONE Stop: 09/13/20 09:59 Ondansetron HCl (Ondansetron 4 Mg/2 Ml Sdv) 8 mg IVPUSH Q4H [facility] Oxycodone/Acetaminophen (Acetaminophen/Oxycodone 325-10 Mg Tab) 1 tab PO Q6H PRN PRN Reason: Pain (moderate 4-6) Last Admin: 09/10/20 05:13 Dose: 1 tab Documented by: Oxycodone/Acetaminophen (Acetaminophen/Oxycodone 325-10 Mg Tab) 1 tab PO Q4H PRN PRN Reason: PAIN Last Admin: 09/14/20 21:36 Dose: 1 tab Documented by: Pantoprazole Sodium (Pantoprazole 40 Mg Vial) 40 mg IV Q12H [facility] Last Admin: 09/09/20 13:30 Dose: 40 mg Documented by: Pantoprazole Sodium (Pantoprazole 40 Mg Vial) 40 mg IVPUSH Q24H [facility] Last Admin: 09/14/20 15:25 Dose: 40 mg Documented by: Pantoprazole Sodium (Pantoprazole 40 Mg Vial) 40 mg IVPUSH Q12H [facility] Last Admin: 09/17/20 00:50 Dose: 40 mg Documented by: Propofol (Propofol 200 Mg/20 Ml Sdv) Confirm Administered Dose 200 mg .ROUTE .STK-MED ONE Stop: 09/09/20 07:16 Propofol (Propofol 200 Mg/20 Ml Sdv) Confirm Administered Dose 200 mg .ROUTE .STK-MED ONE Stop: 09/09/20 07:47 Propofol (Propofol 200 Mg/20 Ml Sdv) Confirm Administered Dose 200 mg .ROUTE .STK-MED ONE Stop: 09/13/20 09:59 Rocuronium [place] (Rocuronium 50 Mg/5 Ml Vial) Confirm Administered Dose 50 mg .ROUTE .STK-MED ONE Stop: 09/13/20 09:59 Scopolamine (Scopolamine 1.5 Mg Transdermal Patch) 1.5 mg TRDERM Q72H PRN PRN Reason: Nausea/Vomiting Stop: 09/14/20 10:00 Last Admin: 09/12/20 00:39 Dose: 1.5 mg Documented by: Sodium Chloride (Sodium Chloride 0.9% 10 Ml Syringe) 10 ml FLUSH ASDIRECTED PRN PRN Reason: Keep Vein Open Last Admin: 09/09/20 00:58 Dose: 10 ml Documented by: Sodium Chloride (Sodium Chloride 0.9% 10 Ml Syringe) 10 ml FLUSH ONETIME ONE Stop: 09/12/20 14:59 Last Admin: 09/12/20 15:26 Dose: 10 ml Documented by: Sodium Chloride (Sodium Chloride 0.9% 10 Ml Syringe) 10 ml FLUSH ONETIME ONE Stop: 09/15/20 10:09 Last Admin: 09/15/20 13:22 Dose: 10 ml Documented by: Succinylcholine Chloride (Succinylcholine 200 Mg/10 Ml Mdv) Confirm Administered Dose 200 mg .ROUTE .STK-MED ONE Stop: 09/13/20 09:59 Sugammadex Sodium (Sugammadex Sodium 200 Mg/2 Ml Vial) Confirm Administered Dose 200 mg .ROUTE .STK-MED ONE Stop: 09/13/20 11:37 Vancomycin HCl (Vancomycin 1 Gm Sdv) 1 gm IV .PHARMACY TO DOSE [facility] Stop: 09/15/20 16:00 - Exam Quality Assessment: Supplemental Oxygen, DVT Prophylaxis General: Alert, Oriented, Cooperative, Mild Distress Lungs: Clear to Auscultation, Normal Respiratory Effort Cardiovascular: Regular Rate, Regular Rhythm, No Murmurs GI/Abdominal Exam: Soft, No Organomegaly, Tender. No: Distended, Guarding, Rigid, Rebound Extremities: Non-Tender, Pedal Edema - Patient Data Lab Results Last 24 hrs: Laboratory Results - last 24 hr 09/17/20 09/17/20 Range/Units 05:20 05:20 WBC 7.8 (4.5-11.0) K/uL RBC 3.62 L (4.30-5.90) M/uL Hgb 11.0 L (12.0-15.0) g/dL Hct 33.7 L (40.0-54.0) % MCV 93 (80-98) fL MCH 30 (27-31) pg MCHC 33 (32-36) % Plt Count 232 (150-400) K/uL Neut % (Auto) 68 H (36-66) % Lymph % (Auto) 20 L (24-44) % [place] % (Auto) 8 H (2-6) % Eos % (Auto) 4 (2-4) % Baso % (Auto) 0 (0-1) % Sodium 140 (140-148) mmol/L Potassium 4.1 (3.6-5.2) mmol/L Chloride 102 (100-108) mmol/L Carbon Dioxide 28 (21-32) mmol/L Anion Gap 9.7 (5.0-14.0) mmol/L BUN 24 H (7-18) mg/dL Creatinine 0.9 (0.8-1.3) mg/dL Est Cr Clr Drug Dosing 98.77 mL/min Estimated GFR (MDRD) > 60 (>60) Glucose 91 (74-106) mg/dL Calcium 8.4 L (8.5-10.1) mg/dL Total Bilirubin 1.1 H (0.2-1.0) mg/dL AST 141 H (15-37) U/L ALT 309 H (12-78) U/L Alkaline Phosphatase 109 (46-116) U/L Total Protein 5.4 L (6.4-8.2) g/dL Albumin 2.4 L (3.4-5.0) g/dL Globulin 3.0 (2.3-3.5) g/dL Albumin/Globulin Ratio 0.8 L (1.2-2.2) Result Diagrams: 09/17/20 05:20 09/17/20 05:20 [place] Results Last 24 hrs: Microbiology 09/13/20 11:30 Gram Stain - Final Gallbladder Wound Culture - Final NO GROWTH AFTER 3 DAYS Anaerobic Culture - Final NO GROWTH AFTER 3 DAYS Sepsis Event Note - Evaluation Sepsis Screening Result: No Definite Risk - Focused Exam Vital Signs: Vital Signs Temp Pulse Resp BP BP Pulse Ox Pulse Ox 09/17/20 09:10 100/61 09/17/20 08:42 98.3 F 78 17 100/61 93 L 09/17/20 07:50 82 93 L 09/17/20 06:00 13 115/61 98 09/17/20 04:00 97.1 F 15 113/74 95 09/17/20 02:00 16 129/66 93 L 09/17/20 00:00 98.2 F 15 119/51 L 93 L 09/16/20 22:00 18 113/53 L 94 L - Problem List Review Problem List Initiated/Reviewed/Updated: Yes - My Orders Last 24 Hours: My Active Orders 09/16/20 15:46 Convert IV to Saline Lock [OM.PC] Routine 09/17/20 09:27 Furosemide [Lasix] 20 mg IVPUSH NOW ONE 09/17/20 09:28 Patient Status [ADT] Routine 09/17/20 11:30 VANCOMYCIN TROUGH [CHEM] Routine 09/17/20 16:30 Pantoprazole [ProTONIX] 40 mg PO BIDAC 09/18/20 05:00 CBC WITH AUTO DIFF [HEME] Timed COMPREHENSIVE METABOLIC PN,CMP [CHEM] Timed - Plan Plan:: ASSESSMENT AND PLAN Dysphasia-resolved -Pain and nausea management CHOLECYSTITIS STATUS POST CHOLECYSTECTOMY -Meropenem 1 g every 8 hours -Postoperative management per Dr. Roberts Shortness of breath and hypoxia-there does appear to be an element of fluid overload. Also evidence of possible bilateral infiltrates consistent with infection. Echocardiogram shows hyperdynamic left ventricular function with MR and TR. -Furosemide 20 mg IV today -Blood cultures pending -levofloxacin and vancomycin -Noninvasive positive pressure ventilation as needed -Supplemental oxygen as needed Duodenitis-etiology not apparent, symptomatically improved Hypokalemia -improved with supplementation. -recheck Potassium in am Coronary Artery Disease- had a MO with stent placed 3 years ago, has blood clotting disorder, no history of PE. -Hold apixaban Chronic Back pain and arthritis-stable. -pain medication ordered -Bowel regimen to avoid constipation Tobacco dependence-interested in nicotine patch. -Encourage cessation Maintenance issues - - DVT prophylaxis - SCD - GI prophylaxis -PPI - Nutrition -advance diet as tolerated, n.p.o. after midnight Disposition -I would anticipate discharge home after the hospital stay Primary care physician - Dr. Stock, [facility]
[2020-09-17] MEDS ORDERED: Furosemide 20 MG/2 ML VIAL IVPUSH ONE ×2 (10:00→18:00)
[2020-09-17] MEDS: Pantoprazole 40 MG Tab.CR PO SCH (15:57)
[2020-09-17] MEDS: Levofloxacin/Dextrose 5%-Water 750 MG in Premix Bag 1 BAG IV SCH (16:41)
[2020-09-17] MEDS: Finasteride 5 MG Tab PO SCH (21:03)
[2020-09-18] MEDS: HYDROmorphone 2 MG Tab PO PRN ×3 (01:32→10:25)
[2020-09-18] MEDS: Meropenem 500 MG in Sodium Chloride 0.9% 50 ML IV SCH ×2 (03:56→09:34)
[2020-09-18] MEDS: Albuterol/Ipratropium 3.0-0.5 MG/3 ML Neb Soln INH SCH ×2 (07:36→10:58)
[2020-09-18] MEDS: Pantoprazole 40 MG Tab.CR PO SCH (08:02)
[2020-09-18] MEDS ORDERED: Furosemide 20 MG/2 ML VIAL IVPUSH ONE (09:00)
[2020-09-18] MEDS: SCOPOLAMINE PATCH CHECK TOP SCH (09:30)
[2020-09-18] MEDS: Nicotine 14 MG/24 Hr Patch TRDERM SCH (09:30)
[2020-09-18] MEDS: Cetirizine 10 MG Tab PO SCH (09:30)
[2020-09-18] MEDS: amLODIPine 5 MG Tab PO SCH (09:30)
[2020-09-18] MEDS: Docusate Sodium 100 MG Cap PO SCH (09:30)
[2020-09-18] MEDS: PARoxetine 20 MG Tab PO SCH (09:30)
[2020-09-18] MEDS: Potassium Chloride 20 MEQ Tab.ER PO SCH (09:30)
[2020-09-18] MEDS: Apixaban 5 MG Tab PO SCH (09:30)
[2020-09-18] MEDS: Aspirin 81 MG Tab.EC PO SCH (09:30)
[2020-09-18] MEDS: Bisacodyl 5 MG Tab PO SCH (09:30)
--- NOTE | 2020-09-18 13:03 | PCM.DCSUM1 ---
Discharge Summary - Hospital Course Brief History: Mr. Browning is a 54-year-old gentleman who was admitted through the emergency department with progressive weakness, swallowing difficulty, abdominal pain, secondary to unknown etiology. - Discharge Data Discharge Date: 09/18/20 Discharge Disposition: Home, Self-Care 01 Condition: Fair - Referral to Home Health Primary Care Physician: Ronal Stock MD - Discharge Diagnosis/Problem(s) (1) Sepsis SNOMED Code(s): 38621826 ICD Code: A41.9 - SEPSIS, UNSPECIFIED ORGANISM Status: Acute Current Visit: Yes (2) Cholecystitis SNOMED Code(s): 79445687 ICD Code: K81.9 - CHOLECYSTITIS, UNSPECIFIED Status: Acute Current Visit: Yes (3) Pneumonia SNOMED Code(s): 245636044 ICD Code: J18.9 - PNEUMONIA, UNSPECIFIED ORGANISM Status: Acute Current Visit: Yes (4) Acute respiratory failure with hypoxia SNOMED Code(s): 73479191, 524494340 ICD Code: J96.01 - ACUTE RESPIRATORY FAILURE WITH HYPOXIA Status: Acute Current Visit: Yes (5) Status post laparoscopic cholecystectomy SNOMED Code(s): 573147311, 03331513, 958703707 ICD Code: Z90.49 - ACQUIRED ABSENCE OF OTHER SPECIFIED PARTS OF DIGESTIVE TRACT Status: Acute Current Visit: Yes (6) Hypokalemia SNOMED Code(s): 53382677 ICD Code: E87.6 - HYPOKALEMIA Status: Acute Priority: High Current Visit: Yes (7) Difficulty in swallowing SNOMED Code(s): 86460997, 603103148 ICD Code: R13.10 - DYSPHAGIA, UNSPECIFIED Status: Acute Priority: High Current Visit: Yes Qualifiers: Dysphagia type: unspecified Qualified Code(s): R13.10 - Dysphagia, unspecified (8) Vomiting SNOMED Code(s): 657471145 ICD Code: R11.10 - VOMITING, UNSPECIFIED Status: Acute Priority: High Current Visit: Yes Qualifiers: Vomiting type: unspecified Vomiting Intractability: non-intractable Nausea presence: with nausea Qualified Code(s): R11.2 - Nausea with vomiting, unspecified (9) Dehydration SNOMED Code(s): 56077448 ICD Code: E86.0 - DEHYDRATION Status: Acute Priority: High Current Visit: Yes (10) Panlobular emphysema SNOMED Code(s): 5565005 ICD Code: J43.1 - PANLOBULAR EMPHYSEMA Status: Chronic Current Visit: No - Patient Summary/Data Consults: Consultations 09/09/20 09:19 [employer] Evaluation and Treatment [CONS] Routine Please Evaluate and Treat [employer] Reason for Consult: Swallow This query below is only for informational purposes and is not editable. Admission Diagnosis/Problem: Dysphasia Hospital Course: Mr. Browning is a 54-year-old gentleman who was admitted through the emergency department with a history of progressive weakness, poor oral intake, difficulty swallowing, and abdominal pain. On evaluation in the emergency department CT scan of the chest abdomen pelvis was obtained which did show evidence of emphysema. No obvious explanation was identified for difficulty with swallowing or his abdominal pain. He was fairly weak and lethargic through the initial portion of his hospital stay. He was started on IV fluids for hydration. After admission he was seen and evaluated by Dr. Ortiz, EGD did show evidence of some inflammation at the EG junction and biopsies were obtained. He was started on PPI therapy with Protonix. Swallowing studies were obtained and did show difficulty with swallowing solids, no specific etiology was identified. Few days after admission he became more weak and confused. He also developed respiratory compromise with increased hypoxia requiring use of supplemental oxygen. CT scan of the chest was obtained showing no evidence of pulmonary emboli but did document bilateral infiltrates consistent with infection. Blood cultures were obtained and he was started on broad-spectrum IV antibiotic therapy including meropenem, levofloxacin, and vancomycin. HIDA scan was obtained to evaluate gallbladder, and sure used for the study did reproduce his symptoms and ejection fraction was found to be very low at 11%. He was seen and evaluated by Dr. Roberts in the following day cholecystectomy was performed. The gallbladder was noted to be very large and edematous and was felt to be the source of his abdominal pain. Liver enzymes did increase following cholecystectomy and had improved by the time of discharge but had not yet normalized. For a few days after surgery he remained fairly weak and lethargic with ongoing hypoxia. He developed significant peripheral edema especially in the arms, but was unresponsive to diuretic therapy initially. Over the last few days of hospitalization he improved significantly with good diuresis aided by use of furosemide. Improvement in his hypoxia although he continued to require supplemental oxygen at the time of discharge. He will be discharged home with oxygen 2 L/min via nasal cannula. I did encourage him to consider staying in the hospital for a longer period of time which he refused and strongly requested that he be discharged today. His oral intake had improved significantly by the time of discharge as well as his overall strength. Activity will be as tolerated and he will be on a soft low residue diet. He will continue on oral antibiotic therapy with levofloxacin for several additional days. Follow-up appointment will be scheduled with Dr. Roberts for September 21. Follow-up appointment will be scheduled with his primary care provider within 1 week. He will also be placed on furosemide 40 mg daily at the time of discharge and will continue this until peripheral edema in his arms and legs has resolved. - Patient Instructions Diet: GI Soft/Low Residue/Low Fiber Activity: As Tolerated Other/Special Instructions: Please schedule follow-up appointment with Dr. Roberts for September 21. Please schedule follow-up appointment with Dr. Stock within 1 week. - Discharge Plan *PRESCRIPTION DRUG MONITORING PROGRAM REVIEWED*: No *COPY OF PRESCRIPTION DRUG MONITORING REPORT IN PATIENT NOA: No Prescriptions/Med Rec: Furosemide [Lasix] 40 mg PO DAILY #15 tab levoFLOXacin [Levaquin] 750 mg PO DAILY #5 tab Pantoprazole [ProTONIX] 40 mg PO BIDAC #30 tab.cr Home Medications: Home Meds Apixaban [Eliquis] 5 mg PO BID 11/11/18 [History] Aspirin [Adult Low Dose Aspirin EC] 81 mg PO DAILY 11/11/18 [History] Cetirizine HCl [Zyrtec] 10 mg PO DAILY 11/11/18 [History] Nitroglycerin [Nitrostat] 0.4 mg SL ASDIRECTED 11/11/18 [History] PARoxetine [Paxil] 40 mg PO DAILY 11/11/18 [History] Potassium Chloride 20 meq PO DAILY 11/11/18 [History] amLODIPine Besylate [Norvasc] 10 mg PO DAILY 11/11/18 [History] atorvaSTATin [Lipitor] 80 mg PO BEDTIME 11/11/18 [History] Finasteride 5 mg PO DAILY 07/08/19 [History] oxyCODONE HCl/Acetaminophen [Endocet 5-325 Tablet] 2 tab PO Q8H PRN 07/08/19 [History] Furosemide [Lasix] 40 mg PO DAILY #15 tab 09/18/20 [Rx] Pantoprazole [ProTONIX] 40 mg PO BIDAC #30 tab.cr 09/18/20 [Rx] levoFLOXacin [Levaquin] 750 mg PO DAILY #5 tab 09/18/20 [Rx] Referrals: Ronal Stock MD [Primary Care Provider] - - Discharge Summary/Plan Comment DC Time >30 min.: No - Patient Data Vitals - Most Recent: Last Vital Signs Temp 98.1 F 09/18/20 08:20 Pulse 80 09/18/20 11:10 Resp 16 09/18/20 08:20 BP 126/59 L 09/18/20 09:30 Pulse Ox 94 L 09/18/20 08:20 Weight - Most Recent: 217 lb I&O - Last 24 hours: Intake & Output 09/17/20 09/18/20 09/18/20 22:59 06:59 14:59 Intake Total 1120 1280 150 Output Total 2625 1475 1125 Balance -7802 -956 -031 Lab Results - Last 24 hrs: Laboratory Results - last 24 hr 09/18/20 09/18/20 Range/Units 04:15 04:15 WBC 6.4 (4.5-11.0) K/uL RBC 3.61 L (4.30-5.90) M/uL Hgb 10.9 L (12.0-15.0) g/dL Hct 33.0 L (40.0-54.0) % MCV 91 (80-98) fL MCH 30 (27-31) pg MCHC 33 (32-36) % Plt Count 246 (150-400) K/uL Neut % (Auto) 61 (36-66) % Lymph % (Auto) 24 (24-44) % [place] % (Auto) 9 H (2-6) % Eos % (Auto) 5 H (2-4) % Baso % (Auto) 0 (0-1) % Sodium 142 (140-148) mmol/L Potassium 4.1 (3.6-5.2) mmol/L Chloride 101 (100-108) mmol/L Carbon Dioxide 31 (21-32) mmol/L Anion Gap 9.7 (5.0-14.0) mmol/L BUN 19 H (7-18) mg/dL Creatinine 0.9 (0.8-1.3) mg/dL Est Cr Clr Drug Dosing 98.77 mL/min Estimated GFR (MDRD) > 60 (>60) Glucose 96 (74-106) mg/dL Calcium 8.4 L (8.5-10.1) mg/dL Total Bilirubin 1.2 H (0.2-1.0) mg/dL AST 131 H (15-37) U/L ALT 272 H (12-78) U/L Alkaline Phosphatase 100 (46-116) U/L Total Protein 5.2 L (6.4-8.2) g/dL Albumin 2.2 L (3.4-5.0) g/dL Globulin 3.0 (2.3-3.5) g/dL Albumin/Globulin Ratio 0.7 L (1.2-2.2) Med Orders - Current: Current Medications Albuterol/Ipratropium (Albuterol/Ipratropium 3.0-0.5 Mg/3 Ml Neb Soln) 3 ml INH QIDRT [facility] Last Admin: 09/18/20 10:58 Dose: 3 ml Documented by: Albuterol/Ipratropium (Albuterol/Ipratropium 3.0-0.5 Mg/3 Ml Neb Soln) 3 ml INH ASDIRECTED PRN PRN Reason: BREATHING Amlodipine Besylate (Amlodipine 5 Mg Tab) 10 mg PO DAILY [facility] Last Admin: 09/18/20 09:30 Dose: 10 mg Documented by: Apixaban (Apixaban 5 Mg Tab) 5 mg PO BID [facility] Last Admin: 09/18/20 09:30 Dose: 5 mg Documented by: Aspirin (Aspirin 81 Mg Tab.Ec) 81 mg PO DAILY [facility] Last Admin: 09/18/20 09:30 Dose: 81 mg Documented by: Bisacodyl (Bisacodyl 5 Mg Tab) 10 mg PO BID [facility] Last Admin: 09/18/20 09:30 Dose: 10 mg Documented by: Cetirizine HCl (Cetirizine 10 Mg Tab) 10 mg PO DAILY [facility] Last Admin: 09/18/20 09:30 Dose: 10 mg Documented by: Docusate Sodium (Docusate Sodium 100 Mg Cap) 100 mg PO BID [facility] Last Admin: 09/18/20 09:30 Dose: 100 mg Documented by: Finasteride (Finasteride 5 Mg Tab) 5 mg PO BEDTIME [facility] Last Admin: 09/17/20 21:03 Dose: 5 mg Documented by: Haloperidol Lactate (Haloperidol Lactate 5 Mg/Ml Sdv) 2.5 mg IVPUSH Q2H PRN PRN Reason: Nausea Last Admin: 09/15/20 00:05 Dose: 2.5 mg Documented by: Hydromorphone HCl (Hydromorphone 2 Mg Tab) 2 - 4 mg PO Q4H PRN PRN Reason: Pain Last Admin: 09/18/20 10:25 Dose: 2 mg Documented by: Hydroxyzine HCl (Hydroxyzine Hcl 100 Mg/2 Ml Sdv) 100 mg IM Q4H PRN PRN Reason: Pain Last Admin: 09/14/20 20:01 Dose: 100 mg Documented by: Levofloxacin/Dextrose 750 mg/ (Premix) 150 mls @ 100 mls/hr IV Q24H [facility] Last Admin: 09/17/20 16:41 Dose: 100 mls/hr Documented by: Meropenem 500 mg/ Sodium (Chloride) 50 mls @ 100 mls/hr IV Q6HR [facility] Last Admin: 09/18/20 09:34 Dose: 100 mls/hr Documented by: Lorazepam (Lorazepam 2 Mg/Ml Sdv) 0.5 - 1 mg IVPUSH Q2H PRN PRN Reason: Nausea Last Admin: 09/14/20 22:10 Dose: 1 mg Documented by: Miscellaneous Information (Remove Nicotine Patch) 1 ea TRDERM BEDTIME [facility] Last Admin: 09/17/20 21:04 Dose: Not Given Documented by: Nicotine (Nicotine 14 Mg/24 Hr Patch) 14 mg TRDERM DAILY [facility] Last Admin: 09/18/20 09:30 Dose: Not Given Documented by: Nitroglycerin (Nitroglycerin 0.4 Mg Tab.Sl) 0.4 mg SL ASDIRECTED PRN PRN Reason: Chest Pain Scopolamine Patch (Check) 1 each TOP DAILY [facility] Last Admin: 09/18/20 09:30 Dose: Not Given Documented by: Ondansetron HCl (Ondansetron 4 Mg/2 Ml Sdv) 8 mg IVPUSH Q4H PRN PRN Reason: Nausea/Vomiting Last Admin: 09/15/20 09:57 Dose: 8 mg Documented by: Pantoprazole Sodium (Pantoprazole 40 Mg Tab.Cr) 40 mg PO BIDAC [facility] Last Admin: 09/18/20 08:02 Dose: 40 mg Documented by: Paroxetine HCl (Paroxetine 20 Mg Tab) 40 mg PO DAILY [facility] Last Admin: 09/18/20 09:30 Dose: 40 mg Documented by: Potassium Chloride (Potassium Chloride 20 Meq Tab.Er) 40 meq PO DAILY [facility] Last Admin: 09/18/20 09:30 Dose: 40 meq Documented by: Discontinued Medications Albuterol (Albuterol 0.083% 2.5 Mg/3 Ml Neb Soln) 2.5 mg NEB Q4H PRN PRN Reason: Shortness Of Breath/wheezing Albuterol/Ipratropium (Albuterol/Ipratropium 3.0-0.5 Mg/3 Ml Neb Soln) 3 ml NEB QID PRN PRN Reason: Shortness Of Breath/wheezing Amlodipine Besylate (Amlodipine 5 Mg Tab) 10 mg PO DAILY [facility] Last Admin: 09/09/20 10:45 Dose: 10 mg Documented by: Bisacodyl (Bisacodyl 5 Mg Tab) 5 mg PO DAILY PRN PRN Reason: Constipation Bupivacaine HCl/Epinephrine Bitart (Bupivacaine 0.5%/Epinephrine 1:200,000 50 Ml Mdv) Confirm Administered Dose 50 ml .ROUTE .STK-MED ONE Stop: 09/13/20 10:08 Last Admin: 09/13/20 11:23 Dose: 20 ml Documented by: Ropivacaine 43 ml/Dexamethasone 8 mg/Epinephrine HCl 0.4 mg/ Sodium Chloride 34.6 ml 0 ml NERVRT ASDIRECTED [facility] Last Admin: 09/13/20 11:06 Dose: 80 syringe Documented by: Dexamethasone (Dexamethasone 4 Mg/Ml Sdv) 4 mg IVPUSH ONETIME ONE Stop: 09/12/20 05:24 Last Admin: 09/12/20 05:48 Dose: 4 mg Documented by: Dexamethasone (Dexamethasone 4 Mg/Ml Sdv) Confirm Administered Dose 4 mg .ROUTE .STK-MED ONE Stop: 09/12/20 05:32 Last Admin: 09/12/20 05:48 Dose: Not Given Documented by: Dexamethasone (Dexamethasone 4 Mg/Ml Sdv) Confirm Administered Dose 4 mg .ROUTE .STK-MED ONE Stop: 09/13/20 09:59 Diphenhydramine HCl (Diphenhydramine 50 Mg/Ml Sdv) 25 mg IVPUSH Q4H PRN PRN Reason: Itching Diphenhydramine HCl (Diphenhydramine 50 Mg/Ml Sdv) 25 - 50 mg IVPUSH Q4H PRN PRN Reason: Itching Docusate Sodium (Docusate Sodium 100 Mg Cap) 100 mg PO BID PRN PRN Reason: Constipation Fentanyl (Fentanyl 100 Mcg/2 Ml Sdv) Confirm Administered Dose 100 mcg .ROUTE .STK-MED ONE Stop: 09/09/20 07:16 Fentanyl (Fentanyl 250 Mcg/5 Ml Sdv) Confirm Administered Dose 250 mcg .ROUTE .STK-MED ONE Stop: 09/13/20 09:59 Furosemide (Furosemide 40 Mg/4 Ml Vial) 40 mg IVPUSH NOW ONE Stop: 09/12/20 15:01 Last Admin: 09/12/20 15:54 Dose: 40 mg Documented by: Furosemide (Furosemide 40 Mg/4 Ml Vial) 40 mg IVPUSH NOW ONE Stop: 09/13/20 09:01 Last Admin: 09/13/20 09:28 Dose: 40 mg Documented by: Furosemide (Furosemide 20 Mg/2 Ml Vial) 20 mg IV Q6H [facility] Stop: 09/14/20 15:01 Last Admin: 09/14/20 15:25 Dose: 20 mg Documented by: Furosemide (Furosemide 20 Mg/2 Ml Vial) 20 mg IVPUSH NOW ONE Stop: 09/16/20 10:01 Last Admin: 09/16/20 10:35 Dose: 20 mg Documented by: Furosemide (Furosemide 20 Mg/2 Ml Vial) 20 mg IVPUSH NOW ONE Stop: 09/16/20 18:01 Last Admin: 09/16/20 18:50 Dose: 20 mg Documented by: Furosemide (Furosemide 20 Mg/2 Ml Vial) 20 mg IVPUSH NOW ONE Stop: 09/17/20 10:01 Last Admin: 09/17/20 10:48 Dose: 20 mg Documented by: Furosemide (Furosemide 20 Mg/2 Ml Vial) 20 mg IVPUSH NOW ONE Stop: 09/17/20 18:01 Last Admin: 09/17/20 18:12 Dose: 20 mg Documented by: Furosemide (Furosemide 20 Mg/2 Ml Vial) 20 mg IVPUSH NOW ONE Stop: 09/18/20 09:01 Last Admin: 09/18/20 09:33 Dose: 20 mg Documented by: Glycopyrrolate (Glycopyrrolate 0.2 Mg/Ml 5 Ml Mdv) Confirm Administered Dose 1 mg .ROUTE .STK-MED ONE Stop: 09/13/20 09:59 Haloperidol Lactate (Haloperidol Lactate 5 Mg/Ml Sdv) Confirm Administered Dose 5 mg .ROUTE .STK-MED ONE Stop: 09/14/20 23:55 Last Admin: 09/14/20 23:59 Dose: Not Given Documented by: Hydromorphone HCl (Hydromorphone 0.5 Mg/0.5 Ml Syringe) 0.5 mg IVPUSH ONETIME ONE Stop: 09/09/20 00:53 Last Admin: 09/09/20 00:57 Dose: 0.5 mg Documented by: Hydromorphone HCl (Hydromorphone 1 Mg/Ml Syringe) 1 mg IVPUSH ONETIME ONE Stop: 09/09/20 04:15 Last Admin: 09/09/20 04:55 Dose: 1 mg Documented by: Hydromorphone HCl (Hydromorphone 1 Mg/Ml Syringe) 1 mg IVPUSH Q2H PRN PRN Reason: Pain Stop: 09/11/20 11:30 Last Admin: 09/11/20 08:01 Dose: 1 mg Documented by: Hydromorphone HCl (Hydromorphone 1 Mg/Ml Syringe) Confirm Administered Dose 1 mg .ROUTE .STK-MED ONE Stop: 09/10/20 10:57 Last Admin: 09/10/20 11:02 Dose: Not Given Documented by: Hydromorphone HCl (Hydromorphone/Normal Saline 15 Mg/30 Ml [employer]) 0 mg IV ASDIRECTED PRN; Protocol PRN Reason: Pain Last Admin: 09/12/20 16:57 Dose: 15 mg Documented by: Hydromorphone HCl (Hydromorphone/Normal Saline 15 Mg/30 Ml [employer] Resources Manager) 0 mg IV ASDIRECTED PRN; Protocol PRN Reason: [employer] PAIN CONTROL Last Admin: 09/14/20 02:08 Dose: 15 mg Documented by: Hydromorphone HCl (Hydromorphone/Normal Saline 15 Mg/30 Ml [employer] Resources Manager) 0 mg IV ASDIRECTED [facility]; Protocol Last Admin: 09/16/20 04:58 Dose: 15 mg Documented by: Sodium Chloride (Normal Saline) 1,000 mls @ 999 mls/hr IV .BOLUS ONE Stop: 09/09/20 01:39 Last Admin: 09/09/20 00:49 Dose: 999 mls/hr Documented by: Sodium Chloride (Normal Saline) 100 mls @ 3 mls/sec IV ASDIRECTED [facility] Stop: 09/09/20 01:08 Last Admin: 09/09/20 01:15 Dose: 3 mls/sec Documented by: Potassium Chloride 20 meq/ (Premix) 100 mls @ 50 mls/hr IV ONETIME ONE Stop: 09/09/20 03:33 Last Admin: 09/09/20 02:04 Dose: 50 mls/hr Documented by: Sodium Chloride (Normal Saline) 1,000 mls @ 150 mls/hr IV ASDIRECTED [facility] Last Admin: 09/09/20 11:18 Dose: 150 mls/hr Documented by: Pantoprazole Sodium 80 mg/ (Sodium Chloride) 100 mls @ 200 mls/hr IV .BOLUS [facility] Last Admin: 09/09/20 04:48 Dose: 200 mls/hr Documented by: Potassium Chloride 20 meq/ (Premix) 100 mls @ 50 mls/hr IV ONETIME ONE Stop: 09/09/20 04:15 Last Admin: 09/09/20 05:29 Dose: 50 mls/hr Documented by: Promethazine HCl 25 mg/ Sodium (Chloride) 51 mls @ 200 mls/hr IV Q6H PRN PRN Reason: Nausea/Vomiting Last Admin: 09/12/20 04:51 Dose: 200 mls/hr Documented by: Lactated Ringer's (Ringers, Lactated) Confirm Administered Dose 1,000 mls @ as directed .ROUTE .STK-MED ONE Stop: 09/09/20 07:53 Sodium Chloride (Normal Saline) 1,000 mls @ 100 mls/hr IV ASDIRECTED [facility] Last Admin: 09/10/20 05:13 Dose: 100 mls/hr Documented by: Sodium Chloride (Normal Saline) 1,000 mls @ 125 mls/hr IV ASDIRECTED [facility] Last Admin: 09/12/20 10:00 Dose: 125 mls/hr Documented by: Ciprofloxacin/Dextrose 400 mg/ (Premix) 200 mls @ 200 mls/hr IV Q12H [facility] Last Admin: 09/12/20 10:54 Dose: 200 mls/hr Documented by: Metronidazole 500 mg/ Premix 100 mls @ 100 mls/hr IV Q8H [facility] Last Admin: 09/12/20 13:19 Dose: 100 mls/hr Documented by: Sodium Chloride (Normal Saline) 500 mls @ 500 mls/hr IV ONETIME ONE Stop: 09/11/20 18:29 Last Admin: 09/11/20 17:49 Dose: 500 mls/hr Documented by: Sodium Chloride (Normal Saline) 1,000 mls @ 999 mls/hr IV .BOLUS ONE Stop: 09/12/20 06:23 Last Admin: 09/12/20 05:48 Dose: 999 mls/hr Documented by: Sodium Chloride (Normal Saline) 1,000 mls @ 50 mls/hr IV ASDIRECTED [facility] Last Admin: 09/13/20 06:56 Dose: 50 mls/hr Documented by: Sodium Chloride (Normal Saline) 90 mls @ 3.5 mls/sec IV ASDIRECTED [facility] Stop: 09/12/20 15:01 Last Admin: 09/12/20 15:26 Dose: 3.5 mls/sec Documented by: Meropenem 1 gm/ Sodium (Chloride) 100 mls @ 200 mls/hr IV Q8H [facility] Last Admin: 09/13/20 09:29 Dose: 200 mls/hr Documented by: Ketamine HCl 50 mg/ Sodium (Chloride) 50 mls @ 22.59 mls/hr IV ASDIRECTED [facility] Dextrose/Lactated Ringer's (Dextrose 5%-Lactated Ringers) 1,000 mls @ 100 mls/hr IV ASDIRECTED [facility] Last Admin: 09/14/20 02:08 Dose: 100 mls/hr Documented by: Dextrose/Lactated Ringer's (Dextrose 5%-Lactated Ringers) 1,000 mls @ 50 mls/hr IV ASDIRECTED [facility] Last Admin: 09/16/20 02:24 Dose: 50 mls/hr Documented by: Sodium Chloride (Normal Saline) 500 mls @ 500 mls/hr IV .BOLUS ONE Stop: 09/15/20 08:16 Last Admin: 09/15/20 07:22 Dose: 500 mls/hr Documented by: Sodium Chloride (Normal Saline) 80 mls @ 3 mls/sec IV ASDIRECTED [facility] Stop: 09/15/20 12:30 Last Admin: 09/15/20 10:32 Dose: 3 mls/sec Documented by: Vancomycin HCl 2 gm/ Sodium (Chloride) 500 mls @ 250 mls/hr IV ONETIME ONE Stop: 09/15/20 13:59 Last Admin: 09/15/20 11:52 Dose: 250 mls/hr Documented by: Vancomycin HCl 1.5 gm/ Sodium (Chloride) 250 mls @ 165 mls/hr IV Q12H [facility] Last Admin: 09/17/20 00:07 Dose: 165 mls/hr Documented by: Vancomycin HCl 1.25 gm/ Sodium (Chloride) 250 mls @ 167 mls/hr IV Q12H [facility] Last Admin: 09/18/20 01:33 Dose: 167 mls/hr Documented by: Iopamidol (Iopamidol 612 Mg/Ml 100 Ml Bottle) 100 ml IV . DIRECTED [facility] Stop: 09/09/20 01:08 Last Admin: 09/09/20 01:15 Dose: 100 ml Documented by: Iopamidol (Iopamidol 755 Mg/Ml 100 Ml Bottle) 85 ml IV . DIRECTED [facility] Stop: 09/12/20 15:01 Last Admin: 09/12/20 15:26 Dose: 85 ml Documented by: Iopamidol (Iopamidol 612 Mg/Ml 100 Ml Bottle) 100 ml IV . DIRECTED PRN PRN Reason: RADIOLOGY EXAM Stop: 09/16/20 10:09 Last Admin: 09/15/20 10:32 Dose: 100 ml Documented by: Ketamine HCl (Ketamine 500 Mg/5 Ml Mdv) 37 mg IV ASDIRECTED [facility] Lidocaine HCl (Lidocaine 1% 5 Ml Sdv) 2 ml INJECT ONETIME ONE Stop: 09/09/20 01:37 Last Admin: 09/09/20 02:04 Dose: 2 ml Documented by: Lidocaine HCl (Lidocaine 1% 5 Ml Sdv) Confirm Administered Dose 5 ml .ROUTE .STK-MED ONE Stop: 09/09/20 04:14 Last Admin: 09/09/20 05:29 Dose: 5 ml Documented by: Lorazepam (Lorazepam 2 Mg/Ml Sdv) 1 mg IV Q6H PRN PRN Reason: Nausea/Vomiting Last Admin: 09/13/20 06:24 Dose: 1 mg Documented by: Lorazepam (Lorazepam 2 Mg/Ml Sdv) Confirm Administered Dose 2 mg .ROUTE .STK-MED ONE Stop: 09/09/20 05:47 Last Admin: 09/09/20 05:54 Dose: Not Given Documented by: Magnesium Hydroxide (Magnesium Hydroxide 400 Mg/5 Ml Susp 30 Ml Cup) 30 ml PO ONETIME ONE Stop: 09/17/20 09:01 Last Admin: 09/17/20 09:12 Dose: 30 ml Documented by: Midazolam HCl (Midazolam 1 Mg/Ml 2 Ml Sdv) Confirm Administered Dose 2 mg .ROUTE .STK-MED ONE Stop: 09/09/20 07:16 Miscellaneous Information (Remove Patch) 1 ea TRDERM Q24H [facility] Morphine Sulfate (Morphine 2 Mg/Ml Syringe) 2 mg IVPUSH Q2H PRN PRN Reason: Pain (severe 7-10) Last Admin: 09/09/20 11:16 Dose: 2 mg Documented by: Naloxone HCl (Naloxone 0.4 Mg/Ml Sdv) 0.1 mg IVPUSH Q2M PRN PRN Reason: Respiratory Distress Naloxone HCl (Naloxone 0.4 Mg/Ml Sdv) 0.1 mg IV ASDIRECTED PRN PRN Reason: decreased respiratory rate Neostigmine Methylsulfate (Neostigmine Methylsulfate 1 Mg/Ml 5 Ml Syringe) Confirm Administered Dose 5 mg .ROUTE .STK-MED ONE Stop: 09/13/20 09:59 Ondansetron HCl (Ondansetron 4 Mg/2 Ml Sdv) 4 mg IVPUSH ONETIME ONE Stop: 09/09/20 00:40 Last Admin: 09/09/20 00:55 Dose: 4 mg Documented by: Ondansetron HCl (Ondansetron 4 Mg/2 Ml Sdv) 4 mg IV Q4H PRN PRN Reason: Nausea/Vomiting Last Admin: 09/14/20 21:34 Dose: 4 mg Documented by: Ondansetron HCl (Ondansetron 4 Mg/2 Ml Sdv) Confirm Administered Dose 4 mg .ROUTE .STK-MED ONE Stop: 09/13/20 09:59 Ondansetron HCl (Ondansetron 4 Mg/2 Ml Sdv) 8 mg IVPUSH Q4H [facility] Oxycodone/Acetaminophen (Acetaminophen/Oxycodone 325-10 Mg Tab) 1 tab PO Q6H PRN PRN Reason: Pain (moderate 4-6) Last Admin: 09/10/20 05:13 Dose: 1 tab Documented by: Oxycodone/Acetaminophen (Acetaminophen/Oxycodone 325-10 Mg Tab) 1 tab PO Q4H PRN PRN Reason: PAIN Last Admin: 09/14/20 21:36 Dose: 1 tab Documented by: Pantoprazole Sodium (Pantoprazole 40 Mg Vial) 40 mg IV Q12H [facility] Last Admin: 09/09/20 13:30 Dose: 40 mg Documented by: Pantoprazole Sodium (Pantoprazole 40 Mg Vial) 40 mg IVPUSH Q24H [facility] Last Admin: 09/14/20 15:25 Dose: 40 mg Documented by: Pantoprazole Sodium (Pantoprazole 40 Mg Vial) 40 mg IVPUSH Q12H [facility] Last Admin: 09/17/20 00:50 Dose: 40 mg Documented by: Propofol (Propofol 200 Mg/20 Ml Sdv) Confirm Administered Dose 200 mg .ROUTE .STK-MED ONE Stop: 09/09/20 07:16 Propofol (Propofol 200 Mg/20 Ml Sdv) Confirm Administered Dose 200 mg .ROUTE .STK-MED ONE Stop: 09/09/20 07:47 Propofol (Propofol 200 Mg/20 Ml Sdv) Confirm Administered Dose 200 mg .ROUTE .STK-MED ONE Stop: 09/13/20 09:59 Rocuronium [place] (Rocuronium 50 Mg/5 Ml Vial) Confirm Administered Dose 50 mg .ROUTE .STK-MED ONE Stop: 09/13/20 09:59 Scopolamine (Scopolamine 1.5 Mg Transdermal Patch) 1.5 mg TRDERM Q72H PRN PRN Reason: Nausea/Vomiting Stop: 09/14/20 10:00 Last Admin: 09/12/20 00:39 Dose: 1.5 mg Documented by: Sodium Chloride (Sodium Chloride 0.9% 10 Ml Syringe) 10 ml FLUSH ASDIRECTED PRN PRN Reason: Keep Vein Open Last Admin: 09/09/20 00:58 Dose: 10 ml Documented by: Sodium Chloride (Sodium Chloride 0.9% 10 Ml Syringe) 10 ml FLUSH ONETIME ONE Stop: 09/12/20 14:59 Last Admin: 09/12/20 15:26 Dose: 10 ml Documented by: Sodium Chloride (Sodium Chloride 0.9% 10 Ml Syringe) 10 ml FLUSH ONETIME ONE Stop: 09/15/20 10:09 Last Admin: 09/15/20 13:22 Dose: 10 ml Documented by: Succinylcholine Chloride (Succinylcholine 200 Mg/10 Ml Mdv) Confirm Administered Dose 200 mg .ROUTE .STK-MED ONE Stop: 09/13/20 09:59 Sugammadex Sodium (Sugammadex Sodium 200 Mg/2 Ml Vial) Confirm Administered Dose 200 mg .ROUTE .STK-MED ONE Stop: 09/13/20 11:37 Vancomycin HCl (Vancomycin 1 Gm Sdv) 1 gm IV .PHARMACY TO DOSE KAHLIL Stop: 09/15/20 16:00 - Exam General: Reports: Alert, Oriented, Cooperative, Mild Distress Lungs: Reports: Clear to Auscultation, Normal Respiratory Effort Cardiovascular: Reports: Regular Rate, Regular Rhythm, No Murmurs GI/Abdominal Exam: Soft, No Organomegaly, No Distention, Tender. No: Guarding, Rigid, Rebound Extremities: Non-Tender, Pedal Edema
--- NOTE | 2020-09-19 08:11 | PN ---
DATE OF SERVICE: 09/16/2020 The patient has been afebrile with stable vital signs. Overall feeling a little bit better. He is tolerating ice chips without any nausea. We will move up to a full-liquid diet and begin some bowel stimulation. Otherwise continue medical management with assistance of Dr. Callahan. Angelo Roberts MD /[id number]
--- NOTE | 2020-09-19 12:35 | OR ---
DATE OF PROCEDURE: 09/13/2020 SURGEON: Angelo Roberts MD INDICATIONS: This is a 54-year-old male who was admitted several days ago with ongoing abdominal pain. He had a HIDA scan which showed a below normal ejection fraction and the Ensure given prompted reproduction of the patient's symptoms to a large extent, and the patient at this point remains somewhat toxic in appearance with some possible element of congestive heart failure, but also quite tender in the right upper quadrant. After discussion of the situation with the patient and Dr. aCllahan, the plan will be to proceed with a laparoscopic or, if necessary, open cholecystectomy later today. Potential risks of the procedure including bleeding, infection, injury to common bile duct, and possible persistent symptoms postoperatively as well as remote possibility of cardiopulmonary, septic, or hemorrhagic complications leading to were discussed, and the patient wishes to proceed. DETAILS OF PROCEDURE: The patient was taken to the operating room and placed in a supine position. After general endotracheal anesthesia was induced, the abdomen was prepped and draped. A transverse subumbilical incision was initially made. The patient was noted to have an incarcerated umbilical hernia containing preperitoneal fat. The 12 mm trocar was then placed through the hernia defect, thus displacing the preperitoneal fat back into the intraperitoneal location and the peritoneal cavity inflated to 15 mmHg pressure with CO2. Laparoscope was reinserted. No underlying trocar insertion site injuries were seen. Following this, a 12 mm epigastric trocar and a single 5 mm right subcostal trocar were placed. Bilateral transversus abdominis plane blocks were then placed and the upper abdomen examined. The gallbladder was noted to be quite engorged and subacutely inflamed. As one lifted up the gallbladder, there was a thin purulent inflammatory fluid collection behind that with some localized peritonitis associated with that. Cultures of this were obtained. The gallbladder was then retracted anteriorly and laterally, and dissection with Harmonic scalpel began on the gallbladder neck and continued around the gallbladder neck and cystic duct junction. Once that area as well as the adjacent cystic artery were identified, the cystic duct and gallbladder neck junction were taken with surgical tim as was the cystic artery. A small branch of the artery encountered higher up in the area of the gallbladder bed was subsequently clipped as well and the gallbladder dissected off the gallbladder bed and delivered through the epigastric trocar site containing some fine sludge within it and overall inflamed-appearing mucosa. At this point, no further problems were noted. A Marcos-Fountain drain was then taken out through the right lateral trocar site and positioned adjacent to the area of the gallbladder bed and the inflammatory fluid collection site. The scope was then brought up to the epigastric site, and using the endoscopic suture passers, the umbilical hernia was then secured with transversely oriented series of 0 Vicryl sutures placed in the fascia. The remaining trocars were then removed and the peritoneal cavity deflated. At that site, the fascia was closed with 0 Vicryl stitch, this being the epigastric trocar site, and the other sutures at the umbilical site tied as well. The incisions were then closed at the skin level with 4-0 Vicryl stitch and the patient taken to the recovery room in satisfactory condition. Physician administration assistant, Julissa Randolph PA-C, played an essential role in assisting in this case, helping to position the patient, retract structures as needed, as well as suturing and cutting sutures when indicated. Her presence improved patient safety and decreased the operative time. Angelo Roberts MD /[id number]
--- NOTE | 2020-09-19 12:48 | PN ---
DATE OF SERVICE: 09/18/2020 The patient has been afebrile with stable vital signs. He is diuresing quite a bit. We had over 2 L of urine output overnight and the oral intake is fairly good and improving. He did move his bowels and at this point may be ready for discharge home per Internal Medicine's discretion either today or tomorrow. When he is discharged, he should follow up with Julissa Randolph at [facility] on 09/23/2020. Angelo Roberts MD /[id number]
--- NOTE | 2020-09-19 12:56 | PN ---
DATE OF SERVICE: 09/15/2020 The patient has continued to have some problems with nausea and vomiting overnight. The patient otherwise has had a little lower blood pressure this morning. Presently, he is receiving IV bolus per Dr. Callahan. His liver function tests show some increase in AST and ALT again. This may in fact be still related to the surgical heat and energy from the cholecystectomy on the liver surface. Bilirubin range is normal at 0.9, and at this point, it is unclear what is going on as far as his abdominal status, nausea, vomiting. We will have Dr. Callahan look at things further. Agnelo Roberts MD /[id number]
--- NOTE | 2020-09-19 13:32 | PN ---
DATE OF SERVICE: 09/17/2020 The patient has been afebrile with stable vital signs. Oral intake has improved a little bit. He is also moving his bowels. We will continue his bowel stimulation, go with clear liquid diet today, and switch over to oral pain medication. He may be ready for discharge home tomorrow. Angelo Roberts MD /[id number]
--- NOTE | 2020-09-19 13:48 | PN ---
DATE OF SERVICE: 09/14/2020 The patient remains afebrile with stable vital signs. He is still quite weak and somewhat sweaty. know what the baseline is. Otherwise, he clinically is doing well. AST and ALT are elevated, but this is related to the dissection of the gallbladder. In all likelihood, HECTOR drain is clear and that will be removed today with both a regular diet and oral oral pain medication. Otherwise, further evaluation by Dr. Callahan. We will work on increasing his activity level today. I think we will empirically repeat a COVID test today. Angelo Roberts MD /[id number]
== END 2020-09-18 13:54 | disposition home or self-care (01) | DRG 853 ==
LOC: JP.ED 00:07 → JP.ICU 03:38 → JP.MS 12:50 → JP.ICU 09-13 11:50
PROVIDERS: ADMIT Internal Medicine; ATTEND Surgery
PROC: 0DB48ZX Excision of Esophagogastric Junction, Via Natural or Artificial Opening Endoscopic, Diagnostic (ICD-10-PCS; 2020-09-09)
PROC: 0FT44ZZ Resection of Gallbladder, Percutaneous Endoscopic Approach (ICD-10-PCS; principal; 2020-09-13)
DX: R10.13 Epigastric pain (principal); A41.9 Sepsis, unspecified organism; J18.9 Pneumonia, unspecified organism; R14.0 Abdominal distension (gaseous); J96.01 Acute respiratory failure with hypoxia; K81.9 Cholecystitis, unspecified; F17.210 Nicotine dependence, cigarettes, uncomplicated; E87.6 Hypokalemia; R13.10 Dysphagia, unspecified; R11.2 Nausea with vomiting, unspecified; E86.0 Dehydration; J43.1 Panlobular emphysema; E78.00 Pure hypercholesterolemia, unspecified; M19.90 Unspecified osteoarthritis, unspecified site; G89.29 Other chronic pain; Z88.8 Allergy status to other drugs, medicaments and biological substances; M54.9 Dorsalgia, unspecified; K20.90 Esophagitis, unspecified without bleeding; Z20.822 Contact with and (suspected) exposure to COVID-19; Z91.030 Bee allergy status; Z88.0 Allergy status to penicillin; Z90.49 Acquired absence of other specified parts of digestive tract; Z88.1 Allergy status to other antibiotic agents; Z79.82 Long term (current) use of aspirin; Z79.899 Other long term (current) drug therapy; Z79.01 Long term (current) use of anticoagulants; I25.2 Old myocardial infarction; Z95.5 Presence of coronary angioplasty implant and graft; Z90.89 Acquired absence of other organs; Z98.890 Other specified postprocedural states; Z85.828 Personal history of other malignant neoplasm of skin; I25.10 Atherosclerotic heart disease of native coronary artery without angina pectoris
CPT/HCPCS: 0241U; 36415; 70450; 71260; 71275; 74177; 74230; 78227; 80048; 80053; 80202; 81001; 83605; 83690; 83735; 83880; 84100; 84165; 84443; 84484; 85025; 85027; 85379; 85610; 85651; 86038; 86140; 87070; 87075; 87205; 88302; 88304; 88305; 88312; 92610; 92611; 93005; 93306; 94640; 94660; 94762; 96365; 96366; 96375; 99223; 99232; 99238; 99283; 99285; A9270-GY; C9113; J0171; J0330; J0744; J1100; J1170; J1630; J1940; J1956; J2060; J2185; J2250; J2270; J2405; J2550; J2704; J2710; J2795; J3010; J3370; J3410; J3480; J3490; J7030; J7040; J7050; J7120; J7121; J7620-GY; Q9967

== ENCOUNTER 2023-03-05 03:36 | Emergency (ER) | payer MEDICARE, MEDICAID ==
[2023-03-05] MEDS ORDERED: Acetaminophen/oxyCODONE 325-5 MG Tab PO ONE (04:15)
== END 2023-03-05 04:53 | disposition home or self-care (01) ==
LOC: JP.ED 03:36
DX: S93.492A Sprain of other ligament of left ankle, initial encounter (principal); I25.2 Old myocardial infarction; E78.00 Pure hypercholesterolemia, unspecified; M19.90 Unspecified osteoarthritis, unspecified site; Z95.5 Presence of coronary angioplasty implant and graft; Z79.01 Long term (current) use of anticoagulants; Z79.82 Long term (current) use of aspirin; Z79.899 Other long term (current) drug therapy; Z88.0 Allergy status to penicillin; Z88.1 Allergy status to other antibiotic agents; Z88.8 Allergy status to other drugs, medicaments and biological substances; Z88.7 Allergy status to serum and vaccine; X50.0XXA Overexertion from strenuous movement or load, initial encounter
CPT/HCPCS: 73610; 99283; A9270

== ENCOUNTER 2024-02-15 18:20 | Emergency (ER) | payer MEDICARE, MEDICAID ==
[2024-02-15] MEDS: Meropenem 1 GM in Sodium Chloride 0.9% 100 ML IV ONE (19:23)
== END 2024-02-15 20:29 | disposition home or self-care (01) ==
LOC: JP.ED 18:20
DX: L03.115 Cellulitis of right lower limb (principal); F17.210 Nicotine dependence, cigarettes, uncomplicated; E78.00 Pure hypercholesterolemia, unspecified; M19.90 Unspecified osteoarthritis, unspecified site; K21.9 Gastro-esophageal reflux disease without esophagitis; I10 Essential (primary) hypertension; I25.2 Old myocardial infarction; Z95.5 Presence of coronary angioplasty implant and graft; Z86.73 Personal history of transient ischemic attack (TIA), and cerebral infarction without residual deficits; Z79.01 Long term (current) use of anticoagulants; Z79.82 Long term (current) use of aspirin; Z79.899 Other long term (current) drug therapy; Z88.0 Allergy status to penicillin; Z88.8 Allergy status to other drugs, medicaments and biological substances; Z91.030 Bee allergy status
CPT/HCPCS: 87070; 87077; 87186; 87205; 96365; 99283; J2185; J3490

== ENCOUNTER 2025-03-31 08:01 | Day surgery (SDC) | payer MEDICARE, MEDICAID ==
[~2025-03-31 08:01] MED LIST changes: +Midazolam 1 MG/ML 2 ML SDV ONE; +Propofol 200 MG/20 ML SDV ONE; -Sodium Chloride 0.9% 1,000 ML IV SCH; +fentaNYL 50 MCG/ML SDV ONE
[2025-03-31] MEDS ORDERED: Lactated Ringers 1,000 ML IV SCH (08:45)
[2025-03-31] MEDS: Lactated Ringers 1,000 ML IV SCH (08:48)
== END 2025-03-31 10:52 | disposition home or self-care (01) ==
LOC: JP.SDS 08:01
PROVIDERS: ATTEND Surgery
DX: Z12.11 Encounter for screening for malignant neoplasm of colon (principal); D12.4 Benign neoplasm of descending colon; K57.30 Diverticulosis of large intestine without perforation or abscess without bleeding; E78.00 Pure hypercholesterolemia, unspecified; I10 Essential (primary) hypertension; F17.210 Nicotine dependence, cigarettes, uncomplicated; Z88.0 Allergy status to penicillin; Z88.8 Allergy status to other drugs, medicaments and biological substances; Z79.01 Long term (current) use of anticoagulants; Z79.82 Long term (current) use of aspirin; Z79.899 Other long term (current) drug therapy; Z91.030 Bee allergy status; Z86.0101 Personal history of adenomatous and serrated colon polyps
CPT/HCPCS: 00811; 45385; J2250; J2704; J3010; J7120; 88305